=== PATIENT | female | born 1975 | race Caucasian/White ===

== ENCOUNTER 2020-12-21 00:25 | Emergency (ER) | payer MEDICAID, SELFPAY ==
--- NOTE | ~2020-12-21 | CT_ITS ---
EXAMINATION: CT ABDOMEN AND PELVIS WITHOUT CONTRAST CLINICAL INFORMATION: Lower abdominal pain, postop. COMPARISON: None TECHNIQUE: Multidetector volumetric imaging was performed from the superior aspect of the liver through the pubic symphysis. Sagittal and coronal reformatted images were obtained on the technologist's workstation. This CT examination was performed using dose optimization techniques as appropriate, variously including the following: *Automated exposure control *Adjustment of mA and/or kV according to patient size (this includes techniques or standardized protocols for targeted exams where dose is matched to indication/reason for exam; i.e. extremities or head) *Use of iterative reconstruction technique DLP: 561 mGy-cm FINDINGS: LUNG BASES: The visualized lung bases are unremarkable. LIVER, GALLBLADDER, AND BILIARY TREE: The liver is normal in size, shape, and attenuation. No focal hepatic lesion or biliary ductal dilatation is present. The gallbladder is unremarkable with no evidence of radiopaque gallstones, gallbladder wall thickening, or obvious pericholecystic inflammatory changes. PANCREAS: Unremarkable. SPLEEN: Unremarkable. ADRENAL GLANDS: Unremarkable. KIDNEYS AND URETERS: The kidneys are normal in size, shape, and attenuation. No hydronephrosis, hydroureter, or calculi seen. No perinephric stranding. BLADDER: Unremarkable. GASTROINTESTINAL TRACT: There is moderate stool, navicular and gas seen in the colon without distention or diverticulitis. ABDOMINAL WALL: There is a lower abdominal wall scar from previous intervention. No evidence of hernia. LYMPH NODES: Normal. VASCULAR: Unremarkable. PELVIC VISCERA: The uterus is anteverted and unremarkable. OSSEOUS STRUCTURES: Unremarkable. CT/CT abdomen pelvis wo con IMPRESSION: No acute intra-abdominal process seen. Moderate constipation. No obstruction seen.
[2020-12-21 00:58] VITALS: BP 121/93; PULSE 72; RESP 18; TEMP 36.6; O2SAT 99; BMI 27.6
[2020-12-21 04:53] VITALS: BP 169/89; PULSE 61; RESP 15; TEMP 37.1; O2SAT 100
[2020-12-21 05:09] LABS: Glucose Urine UA NEG (NEG); Leukocyte Esterase Urine NEG (NEG); Nitrite Urine NEG (NEG); Specific Gravity - Urine 1.015 (1.005-1.025); UACC Culture Trigger NO; Urine Blood 2+ (NEG); Urine Ketones NEG (NEG); Urine Protein NEG (NEG-TRACE)
[2020-12-21 05:12] LABS: Appearance Urine CLEAR; Color Urine YELLOW
[2020-12-21 05:14] LABS: UPreg QC Valid YES; Urine Pregnancy NEGATIVE (NEGATIVE)
[2020-12-21 05:19] LABS: Bacteria Urine 1+ /LPF; Squamous Epithelial Cell Urine 1+ /LPF
[2020-12-21 05:20] LABS: Amorphous Sediment Urine 2+ /LPF
[2020-12-21 08:03] LABS: Basophils Percent Auto 0.6 % (0-2); Eosinophils Absolute Auto 0.2 X10*3/uL (0.0-0.4); Eosinophils Percent Auto 3.4 % (0-4); Hematocrit 35.6 % (37-47); Hemoglobin 11.9 g/dl (12.0-16.0); Lymphocytes Absolute Auto 1.6 X10*3/uL (1.2-4.9); Lymphocytes Percent Auto 32.9 % (20-40); MANUAL DIFF FLAG NO; Mean Corpuscular HGB Conc 33.4 g/dl (31.0-35.0); Mean Corpuscular Hemoglobin 30.5 pg (27.0-33.0); Mean Corpuscular Volume 91.3 fL (80-98); Mean Platelet Volume 10.8 fL (9.4-12.3); Monocytes Absolute Auto 0.4 X10*3/uL (0.1-1.2); Monocytes Percent Auto 7.4 % (2-11); Neutrophils Absolute Auto 2.6 X10*3/uL (2.0-8.3); Neutrophils Percent Auto 55.7 % (45-73); Platelet Count 204 X10*3/uL (160-400); Red Cell Distribution Width 12.6 % (11.0-16.0); White Blood Count 4.7 X10*3/uL (4.8-10.8)
[2020-12-21 08:26] LABS: Anion Gap 11 (12-20); Blood Urea Nitrogen 8 mg/dL (9-16); Calcium 9.2 mg/dL (8.4-10.2); Carbon Dioxide 25 mmol/L (22-29); Chloride 107 mmol/L (96-108); Creatinine Clr Calc Pharmacy 91.3; Estimated Glomerular Filt Rate > 60; Glucose Random 103 mg/dL (60-115); Potassium 3.9 mmol/L (3.3-5.1); Sodium 139 mmol/L (135-145)
--- NOTE | 2020-12-21 08:39 | ED.ABDPAIN ---
HPI - Abdominal Pain General Chief Complaint: Abdominal Pain Stated Complaint: side pain Time Seen by Provider: 12/21/20 07:33 Source: patient Mode of arrival: ambulatory Limitations: no limitations History of Present Illness HPI narrative: Patient chronic of lower abdominal pain during menstruation since she had fibroid surgery in 08/22 this time pain started for last 2 days getting worse no ultrasound or CT scan was done since surgery no nausea no vomiting no fever or chills no urinary complaints Related Data Previous Rx's Medication Instructions Recorded ibuprofen 600 mg tablet 600 mg PO Q6H PRN #20 tab 12/21/20 tramadol 50 mg tablet 50 mg PO Q6H PRN #20 tab 12/21/20 Allergies Allergy/AdvReac Type Severity Reaction Status Date / Time SEAFOOD Allergy Severe CAN'T Uncoded 01/19/20 17:19 BREATH Review of Systems Review of Systems Yes all other systems are reviewed and are negative Physical Exam Vital Signs: Vital Signs: Last Vital Signs Temp 98.8 F 12/21/20 04:53 Pulse 61 12/21/20 04:53 Resp 15 12/21/20 04:53 BP 169/89 H 12/21/20 04:53 Pulse Ox 100 12/21/20 04:53 Body Mass Index 27.6 Appearance: Alert. Oriented X3. No acute distress. Eyes: PERRLA, No Nystagmus ENT: Pharynx normal. Oral Mucosa moist Neck: Normal inspection. Neck supple. CVS: Normal heart rate and rhythm. Pulses normal. Respiratory: No respiratory distress. Equal air entry bilateral, no wheezing/rales/rhonchi Abdomen: Soft, deep tenderness left lower quadrant and suprapubic area no rebound tenderness or guarding Bowel sounds are present, no mass palpable, no CVA tenderness Skin: Skin warm and dry. Normal skin color. Normal skin turgor. Extremities: No lower extremity edema. No calf tenderness Neuro: Oriented X 3. MDM - Abdominal Pain MDM Narrative Medical decision making narrative: There are nonspecific lower abdominal pain CT scan negative for any acute pathology likely dysmenorrhea of discharge patient home on ibuprofen/ tramadol Lab Data Attestation: I reviewed the patient's lab results. Result diagrams: 12/21/20 07:49 12/21/20 07:49 Labs: Lab Results 12/21/20 12/21/20 12/21/20 Range/Units 05:01 05:01 07:49 WBC 4.7 L (4.8-10.8) X10*3/uL RBC 3.90 L (4.20-5.50) X10*6/uL Hgb 11.9 L (12.0-16.0) g/dl Hct 35.6 L (37-47) % MCV 91.3 (80-98) fL MCH 30.5 (27.0-33.0) pg MCHC 33.4 (31.0-35.0) g/dl RDW 12.6 (11.0-16.0) % Plt Count 204 (160-400) X10*3/uL MPV 10.8 (9.4-12.3) fL Immature Gran % (Auto) 0.0 (0.0-0.4) % Neut % (Auto) 55.7 (45-73) % Lymph % (Auto) 32.9 (20-40) % [place] % (Auto) 7.4 (2-11) % Eos % (Auto) 3.4 (0-4) % Baso % (Auto) 0.6 (0-2) % Lymph # (Auto) 1.6 (1.2-4.9) X10*3/uL [place] # (Auto) 0.4 (0.1-1.2) X10*3/uL Eos # (Auto) 0.2 (0.0-0.4) X10*3/uL Baso # (Auto) 0.0 (0.0-0.2) X10*3/uL Abs Immat Gran (auto) 0.00 (0.00-0.03) X10*3/uL Absolute Neuts (auto) 2.6 (2.0-8.3) X10*3/uL Absolute Nucleated RBC 0.000 (0.0-0.012) X10*3/uL Nucleated RBC % (auto) 0.0 (0.0-0.2) /100WBC Sodium (135-145) mmol/L Potassium (3.3-5.1) mmol/L Chloride (96-108) mmol/L Carbon Dioxide (22-29) mmol/L Anion Gap (12-20) BUN (9-16) mg/dL Creatinine (0.5-1.4) mg/dL Estim Creat Clear Calc Estimated GFR Random Glucose (60-115) mg/dL Calcium (8.4-10.2) mg/dL Urine Color YELLOW Urine Appearance CLEAR Urine pH 7.0 (5.0-8.0) Ur Specific [place] 1.015 (1.005-1.025) Urine Protein NEG (NEG-TRACE) MG/DL Urine Glucose (UA) NEG (NEG) MG/DL Urine Ketones NEG (NEG) MG/DL Urine Blood 2+ H (NEG) Urine Nitrite NEG (NEG) Ur Leukocyte Esterase NEG (NEG) Urine RBC 1-4 (0) /HPF Urine WBC 1-4 (0-4) /HPF Ur Squamous Epith Cells 1+ /LPF Amorphous Sediment 2+ /LPF Urine Bacteria 1+ /LPF Urine Test NEGATIVE (NEGATIVE) 12/21/20 Range/Units 07:49 WBC (4.8-10.8) X10*3/uL RBC (4.20-5.50) X10*6/uL Hgb (12.0-16.0) g/dl Hct (37-47) % MCV (80-98) fL MCH (27.0-33.0) pg MCHC (31.0-35.0) g/dl RDW (11.0-16.0) % Plt Count (160-400) X10*3/uL MPV (9.4-12.3) fL Immature Gran % (Auto) (0.0-0.4) % Neut % (Auto) (45-73) % Lymph % (Auto) (20-40) % [place] % (Auto) (2-11) % Eos % (Auto) (0-4) % Baso % (Auto) (0-2) % Lymph # (Auto) (1.2-4.9) X10*3/uL [place] # (Auto) (0.1-1.2) X10*3/uL Eos # (Auto) (0.0-0.4) X10*3/uL Baso # (Auto) (0.0-0.2) X10*3/uL Abs Immat Gran (auto) (0.00-0.03) X10*3/uL Absolute Neuts (auto) (2.0-8.3) X10*3/uL Absolute Nucleated RBC (0.0-0.012) X10*3/uL Nucleated RBC % (auto) (0.0-0.2) /100WBC Sodium 139 (135-145) mmol/L Potassium 3.9 (3.3-5.1) mmol/L Chloride 107 (96-108) mmol/L Carbon Dioxide 25 (22-29) mmol/L Anion Gap 11 L (12-20) BUN 8 L (9-16) mg/dL Creatinine 0.77 (0.5-1.4) mg/dL Estim Creat Clear Calc 91.3 Estimated GFR > 60 Random Glucose 103 (60-115) mg/dL Calcium 9.2 (8.4-10.2) mg/dL Urine Color Urine Appearance Urine pH (5.0-8.0) Ur Specific [place] (1.005-1.025) Urine Protein (NEG-TRACE) MG/DL Urine Glucose (UA) (NEG) MG/DL Urine Ketones (NEG) MG/DL Urine Blood (NEG) Urine Nitrite (NEG) Ur Leukocyte Esterase (NEG) Urine RBC (0) /HPF Urine WBC (0-4) /HPF Ur Squamous Epith Cells /LPF Amorphous Sediment /LPF Urine Bacteria /LPF Urine Test (NEGATIVE) Discharge Plan Discharge Clinical Impression: Dysmenorrhea Patient Disposition: Home, Self-Care Instructions: Dysmenorrhea (ED) Additional Instructions: Take pain medication as prescribed during menstruation. 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 Prescriptions: New ibuprofen 600 mg tablet 600 mg PO Q6H PRN (Reason: pain) Qty: 20 RF: 0 tramadol 50 mg tablet 50 mg PO Q6H PRN (Reason: pain) Qty: 20 RF: 0 PMFSH Past Medical History Medical History Anemia Asthma Bipolar 1 disorder Depression Hypertension Migraine Pituitary abnormality Vertigo Surgical History deliv NOS-unsp Status post trigger finger release Family History Family History Mother Hypertension Emphysema lung Father Hypertension Epilepsy Social History Social History Alcohol intake: former Advance Directives: No Advance Directives Information Provided: Yes Current occupational status: unemployed Current occupation: Right Handed
[2020-12-21] MEDS: 0.9 % Sodium Chloride 1,000 ML 999 ML IVCONT (09:02)
[2020-12-21] MEDS: Ketorolac Tromethamine 15 MG/ML VIAL IVPUSH (09:03)
== END 2020-12-21 10:30 | disposition home or self-care (01) ==
PROVIDERS: Emergency Provider Internal Medicine
DX: N94.6 Dysmenorrhea, unspecified (principal); R10.30 Lower abdominal pain, unspecified; I10 Essential (primary) hypertension; D50.9 Iron deficiency anemia, unspecified
CPT/HCPCS: 36415; 74176; 80048; 81001; 81025; 85025; 96361; 96374; 99284; J1885

== ENCOUNTER 2021-01-14 14:06 | Outpatient (REF) | payer MEDICAID, SELFPAY ==
[2021-01-15 01:50] LABS: CT PCR NOT DETECTED (Not Detect.); NG PCR NOT DETECTED (Not Detect.)
== END 2021-01-14 14:07 | disposition home or self-care (01) ==
LOC: HO.LAB 14:06
PROVIDERS: Visit Provider Obstetrics & Gynecology
DX: N94.6 Dysmenorrhea, unspecified (principal)
CPT/HCPCS: 87491; 87591; 99212

== ENCOUNTER 2021-01-30 13:37 | Outpatient (REF) | payer MEDICAID, SELFPAY ==
--- NOTE | ~2021-01-30 | US_ITS ---
EXAMINATION: US PELVIS CLINICAL INFORMATION: Dysmenorrhea; the last menstrual period is uncertain. COMPARISON: Pelvic ultrasound dated 06/30/2019. TECHNIQUE: Ultrasound of the pelvis is performed using both transabdominal and transvaginal transducers along with Doppler. Transvaginal imaging is performed due to inadequate visualization transabdominally. FINDINGS: Uterus: The uterus is anteverted and measures 10.4 x 4.7 x 5.6 cm. The uterus is anteverted and anteflexed. Nabothian cysts are seen within the cervix. The double wall endometrial thickness is 0.5 mm. Myometrial echotexture is somewhat heterogeneous. The uterus is smooth in contour and has normal myometrial echogenicity. No visible fibroid. Adnexa: Both ovaries are visualized. There is normal color flow to the adnexa. There is no ovarian torsion. There is no pelvic ascites or fluid collection. There is prominent bilateral adnexal vasculature. Right ovary measures 3.3 x 1.9 x 2.0 cm (volume 6.6 mL). The right ovary contains a 2.2 x 1.3 x 1.6 cm corpus luteum cyst. Left ovary measures 2.7 x 1.5 x 1.5 cm (volume 3.2 mL). US/US pelvic and transvaginal IMPRESSION: 1. No uterine fibroid is presently seen. 2. Nabothian cysts are seen within the cervix. 3. There is a 2.2 cm right ovarian corpus luteum cyst. 4. There is prominent bilateral adnexal vasculature, which can be associated with pelvic congestion.
[2021-01-30 15:35] LABS: Syphilis Screen Nonreactive (Nonreactive)
[2021-01-31 08:12] LABS: HIV AB/AG Nonreactive (Nonreactive); ~HepC Num1 0.14 S/CO (0.00-0.79); ~Hepatitis C Antibody Nonreactive (Nonreactive)
[2021-01-31 08:33] LABS: HBsAGNum1 0.14 S/CO (0.00-0.99); Hepatitis B Surface Antigen Negative (Negative)
== END 2021-01-30 13:38 | disposition home or self-care (01) ==
LOC: HO.US 13:37
PROVIDERS: Visit Provider Obstetrics & Gynecology
DX: N94.6 Dysmenorrhea, unspecified (principal); N76.0 Acute vaginitis; B96.89 Other specified bacterial agents as the cause of diseases classified elsewhere
CPT/HCPCS: 36415; 76830; 76856; 86780; 86803; 87340; 87389

== ENCOUNTER → 2021-02-18 11:04 | Outpatient (BNVA) | payer MEDICAID, SELFPAY | PROVIDERS: Visit Provider Obstetrics & Gynecology ==

== ENCOUNTER 2021-03-11 13:35 | Outpatient (REF) | payer MEDICAID, SELFPAY ==
[2021-03-14 01:47] LABS: HPV mRNA E6/E7 rflx Not Detected (Not Detected)
== END 2021-03-11 13:36 | disposition home or self-care (01) ==
LOC: HO.LAB 13:35
PROVIDERS: Visit Provider Obstetrics & Gynecology
DX: N93.9 Abnormal uterine and vaginal bleeding, unspecified (principal); Z11.51 Encounter for screening for human papillomavirus (HPV)
CPT/HCPCS: 58100; 87624; 88142; 88305; 99212

== ENCOUNTER 2021-04-08 15:27 | Outpatient (REF) | payer MEDICAID, SELFPAY ==
--- NOTE | ~2021-04-08 | MM_ITS ---
EXAMINATION: MM SCREENING DIGITAL BREAST TOMOSYNTHESIS, BILATERAL CLINICAL INFORMATION: Screening. Asymptomatic. The lifetime risk of breast cancer based on the Tyrer-Cuzick Model is 17%. COMPARISON: Mammography: 12/22/2017, 11/26/2017 (baseline) TECHNIQUE: Digital breast tomosynthesis is performed in both the craniocaudal and mediolateral oblique views along with computer-aided detection (CAD). Synthesized 2D images are generated from the tomosynthesis. FINDINGS: The breasts are heterogeneously dense, which may obscure small masses (ACR BI-RADS breast composition Category c). There are no significant masses, abnormal calcifications, or other abnormalities. The axilla and skin contours are unremarkable. No significant changes. MM/MM tomosynthesis screening BI IMPRESSION: No mammographic evidence of malignancy. ASSESSMENT: BI-RADS 1: Negative RECOMMENDATION: Routine annual mammography screening. This patient's information was entered into a reminder system with a target due date for their next mammogram.
== END 2021-04-08 15:28 | disposition home or self-care (01) ==
LOC: HO.MAMMO 15:27
PROVIDERS: Visit Provider Obstetrics & Gynecology
DX: Z12.31 Encounter for screening mammogram for malignant neoplasm of breast (principal)
CPT/HCPCS: 77063; 77067

== ENCOUNTER 2021-04-09 13:35 | Outpatient (REF) | payer MEDICAID, SELFPAY ==
[2021-04-09 14:54] LABS: Hematocrit 35.7 % (37.0-47.0); Hemoglobin 11.9 g/dl (12.0-16.0); Mean Corpuscular HGB Conc 33.3 g/dl (31.0-35.0); Mean Corpuscular Hemoglobin 30.4 pg (27.0-33.0); Mean Corpuscular Volume 91.1 fL (80.0-98.0); Mean Platelet Volume 10.4 fL (9.4-12.3); Platelet Count 245 X10*3/uL (160-400); Red Blood Count 3.92 X10*6/uL (4.20-5.50); Red Cell Distribution Width 12.4 % (11.0-16.0); White Blood Count 5.1 X10*3/uL (4.8-10.8)
[2021-04-09 15:37] LABS: HCG Quantitative < 2 mIU/mL
== END 2021-04-09 13:36 | disposition home or self-care (01) ==
LOC: HO.LAB 13:35
PROVIDERS: Visit Provider Obstetrics & Gynecology
DX: N93.9 Abnormal uterine and vaginal bleeding, unspecified (principal)
CPT/HCPCS: 36415; 84443; 84702; 85027; 99212

== ENCOUNTER → 2021-07-15 11:35 | Outpatient (BNVA) | payer MEDICAID, SELFPAY | PROVIDERS: Visit Provider Obstetrics & Gynecology | DX: N92.6 Irregular menstruation, unspecified (principal) | CPT/HCPCS: 99212 ==

== ENCOUNTER 2021-11-20 14:05 | Emergency (ER) | payer MEDICAID, SELFPAY ==
--- NOTE | ~2021-11-20 | US_ITS ---
EXAM: Pelvic Ultrasound CLINICAL INDICATION: Lower abdominal pain. Bleeding. COMPARISON: Pelvic ultrasound 01/30/2021 TECHNIQUE: The pelvis was evaluated using transabdominal and transvaginal imaging. FINDINGS: The uterus measures 11.0 x 5.3 x 7.3 cm in longitudinal by AP by transverse dimension. Uterus demonstrates overall heterogeneous echotexture with a cyst. 9 mm fibroid. The endometrium measures 6 mm in thickness. Small nabothian cysts identified within the cervix. The left ovary measures approximately 2.7 x 2.0 x 1.9 cm and is normal. The right ovary measures approximately 2.9 x 2.4 x 1.6 cm and is also normal. Prominent veins noted particularly within the left adnexal region are nonspecific but possibly business center representative of a retroperitoneal venous malformation. There is a small amount of free fluid in the pelvis. US/US pelvic and transvaginal IMPRESSION: -No acute ultrasound abnormality identified within the pelvis. -Stable findings as detailed above.
[2021-11-20 15:50] VITALS: BP 135/68; PULSE 60; RESP 18; TEMP 36.4; O2SAT 99; BMI 27.4
[2021-11-20 17:45] LABS: MANUAL DIFF FLAG NO
[2021-11-20 17:47] LABS: Basophils Percent Auto 0.4 % (0-2); Eosinophils Absolute Auto 0.1 X10*3/uL (0.0-0.4); Eosinophils Percent Auto 1.3 % (0-4); Hematocrit 35.8 % (37.0-47.0); Hemoglobin 11.9 g/dl (12.0-16.0); Imm Gran Abs Auto 0.02 X10*3/uL (0.00-0.03); Imm Gran Pct Auto 0.3 % (0.0-0.4); Lymphocytes Absolute Auto 1.2 X10*3/uL (1.2-4.9); Lymphocytes Percent Auto 15.2 % (20-40); Mean Corpuscular HGB Conc 33.2 g/dl (31.0-35.0); Mean Corpuscular Hemoglobin 29.8 pg (27.0-33.0); Mean Corpuscular Volume 89.5 fL (80.0-98.0); Mean Platelet Volume 10.4 fL (9.4-12.3); Monocytes Absolute Auto 0.4 X10*3/uL (0.1-1.2); Monocytes Percent Auto 5.1 % (2-11); Neutrophils Percent Auto 77.7 % (45-73); Platelet Count 247 X10*3/uL (160-400); White Blood Count 7.7 X10*3/uL (4.8-10.8)
[2021-11-20 17:51] LABS: Appearance Urine CLEAR; Color Urine YELLOW; Glucose Urine UA NEG (NEG); Leukocyte Esterase Urine NEG (NEG); Nitrite Urine NEG (NEG); UACC Culture Trigger NO; Urine Blood 3+ (NEG); Urine Ketones NEG (NEG); Urine Protein TRACE MG/DL (NEG-TRACE)
[2021-11-20 17:52] LABS: UPreg QC Valid YES; Urine Pregnancy NEGATIVE (NEGATIVE)
[2021-11-20 18:00] LABS: Alanine Aminotransferase 18 U/L (0-31); Albumin Level 4.5 g/dL (3.5-5.0); Alkaline Phosphatase 45 U/L (39-117); Anion Gap 10 (12-20); Aspartate Amino Transferase 14 U/L (5-31); Bilirubin Direct 0.2 mg/dL (0.0-0.5); Bilirubin Total 0.6 mg/dL (0.0-1.0); Blood Urea Nitrogen 7 mg/dL (9-16); Carbon Dioxide 25 mmol/L (22-29); Chloride 107 mmol/L (96-108); Creatinine Clr Calc Pharmacy 92.5; Estimated Glomerular Filt Rate > 60; Glucose Random 99 mg/dL (60-115); Potassium 3.4 mmol/L (3.3-5.1); Sodium 139 mmol/L (135-145); Total Protein 7.6 g/dL (6.5-8.0)
[2021-11-20 18:12] LABS: Mucus Urine 3+ /LPF; RBC Urine 30-49 /HPF (0); Squamous Epithelial Cell Urine 1+ /LPF; WBC Urine 0 /HPF (0-4)
--- NOTE | 2021-11-20 20:03 | ED_ITS ---
HPI - Abdominal Pain General Chief Complaint: Abdominal Pain Stated Complaint: Ovarian cyst Time Seen by Provider: 11/20/21 19:40 Source: patient Mode of arrival: ambulatory Limitations: language barrier History of Present Illness HPI narrative: 46-year-old female presents with lower abdominal pain, and vaginal bleeding. States that she has had a history of ovarian cyst with rupture and fibroids. She describes the pain as sharp, cramping, feels like a contraction and that something is stuck inside of her body. She does have some light bleeding, and has been taking Tylenol with poor effect. she does not report fevers, chills, chest pain or pressure, palpitations, abdominal distention, dizziness, weakness, edema, abnormal vaginal discharge, or trauma. MD elicited complaint: abdominal pain Pertinent past history: other (Ovarian cyst with rupture) Onset (ago): day(s) (1) Pain Consistency: constant Location: suprapubic Severity: severe Pain scale (0-10): 10 Quality: cramping and aching Radiation: none Migration to: no migration Exacerbating factors: movement Relieving factors: nothing Context: history of similar episodes Associated symptoms: denies other symptoms Treatments prior to arrival: NSAIDs Related Data Previous Rx's Medication Instructions Recorded ibuprofen 600 mg tablet 600 mg PO Q6H PRN pain #20 tabs 12/21/20 ketorolac 10 mg tablet 10 mg PO Q6H PRN pain 5 days #20 11/20/21 tabs Allergies Allergy/AdvReac Type Severity Reaction Status Date / Time SEAFOOD Allergy Severe CAN'T Uncoded 03/19/21 13:16 BREATH Review of Systems Review of Systems Constitutional: No Fever, No Chills ENT/Mouth: No sore throat, No Rhinorrhea Eyes: No Eye Pain, No Redness Cardiovascular: No Chest Pain, No SOB Respiratory: No Cough, No Sputum, No Wheezing Gastrointestinal: positive Nausea, No Vomiting, No Diarrhea, positive abdominal pain Genitourinary: positive vaginal bleeding, No Dysuria, No Urinary Frequency, positive pelvic pain Musculoskeletal: No Myalgias Skin: No rash Neuro: No Weakness, No Headache Psych: No Anxiety/Panic, No Depression Heme/Lymph: No bruising, No Lymphadenopathy Endocrine: No Polyuria, No Polydipsia Yes all other systems are reviewed and are negative PMFSH Past Medical History Attestation statement: The following information was validated with the patient. Source: old records reviewed Medical History Anemia Asthma Bipolar 1 disorder Depression Hypertension Migraine Pituitary abnormality Vertigo Surgical History deliv NOS-unsp H/O myomectomy Status post trigger finger release Family History Family History Mother Hypertension Emphysema lung Father Hypertension Epilepsy Social History Social History Alcohol intake: former Patient Tobacco Use Status: Never used Tobacco Advance Directives: No Advance Directives Information Provided: No Current occupational status: unemployed Current occupation: Right Handed Physical Exam ED Vital Signs: Vital Signs - 24 hr 11/20/21 15:50 11/20/21 20:37 11/20/21 21:04 Temperature 97.6 F 98.1 F Pulse Rate 60 48 L Respiratory Rate 18 18 16 Blood Pressure 135/68 134/79 Pulse Oximetry 99 99 Oxygen Delivery Method Room Air Room Air 11/20/21 22:28 Temperature Pulse Rate Respiratory Rate 16 Blood Pressure Pulse Oximetry Oxygen Delivery Method BMI result Body Mass Index 27.4 Appearance: Alert. Oriented X3. No acute distress. Eyes: Pupils equal, round and reactive to light. ENT: Pharynx normal. Neck: Normal inspection. Neck supple. CVS: Normal heart rate and rhythm. Pulses normal. Respiratory: No respiratory distress. Breath sounds normal. Abdomen: Soft and suprapubic tenderness. Skin: Skin warm and dry. Normal skin color. Normal skin turgor. Extremities: No lower extremity edema. Moves all extremities against resistance. Gait well-balanced well coordinated. Neuro: No motor deficit. No sensory deficit. Cranial nerves 2-12 intact. Course Course Course Narrative: 46-year-old female presents for abdominal pain cramping and light vaginal bleeding. Has a history of ovarian cyst with rupture. Labs drawn while patient was in the emergency department waiting room, H&H 11.9/35.8. Consistent with prior values. Patient is hemodynamically stable. Urinalysis positive for heme. Consistent with menstrual cycle verses abnormal vaginal bleeding. Will order pelvic ultrasound. Patient does have a history of pelvic congestion syndrome, ovarian cyst corpus luteum. Will treat with morphine and Toradol for pain. 22:27 ultrasound is negative for acute findings, shows ovarian cyst, prominent vessels possibly residential sales representative of a retroperitoneal venous malformation. Patient does have a history of pelvic congestion syndrome. Uterus demonstrates a 9 mm fibroid. All of these findings are stable and have been present during prior studies. Patient is an established patient of Dr. Pham, plan of care is to discharge with Toradol p.o. and follow up with Dr. Pham. Patient verbalized understanding of and agrees plan of care discharge home. Verbalized understanding of signs and symptoms indicating need for emergent intervention. ceramic plater utilized for all correspondence. Google translate utilized for discharge instructions. MDM - Abdominal Pain Differential Diagnosis Differential diagnosis: Likely abdominal pain Differential diagnosis narrative:: Ovarian torsion, cyst rupture, uterine fibroid Medical Records Attestation: I reviewed the patient's medical records. Lab Data Attestation: I reviewed the patient's lab results. Result diagrams: 11/20/21 17:37 11/20/21 17:37 Labs: Lab Results 11/20/21 11/20/21 11/20/21 Range/Units 17:37 17:37 17:37 WBC 7.7 (4.8-10.8) X10*3/uL RBC 4.00 L (4.20-5.50) X10*6/uL Hgb 11.9 L (12.0-16.0) g/dl Hct 35.8 L (37.0-47.0) % MCV 89.5 (80.0-98.0) fL MCH 29.8 (27.0-33.0) pg MCHC 33.2 (31.0-35.0) g/dl RDW 13.0 (11.0-16.0) % Plt Count 247 (160-400) X10*3/uL MPV 10.4 (9.4-12.3) fL Immature Gran % (Auto) 0.3 (0.0-0.4) % Neut % (Auto) 77.7 H (45-73) % Lymph % (Auto) 15.2 L (20-40) % [place] % (Auto) 5.1 (2-11) % Eos % (Auto) 1.3 (0-4) % Baso % (Auto) 0.4 (0-2) % Lymph # (Auto) 1.2 (1.2-4.9) X10*3/uL [place] # (Auto) 0.4 (0.1-1.2) X10*3/uL Eos # (Auto) 0.1 (0.0-0.4) X10*3/uL Baso # (Auto) 0.0 (0.0-0.2) X10*3/uL Abs Immat Gran (auto) 0.02 (0.00-0.03) X10*3/uL Absolute Neuts (auto) 6.0 (2.0-8.3) x10*3/uL Absolute Nucleated RBC 0.000 (0.0-0.012) X10*3/uL Nucleated RBC % (auto) 0.0 (0.0-0.2) /100WBC Sodium 139 (135-145) mmol/L Potassium 3.4 (3.3-5.1) mmol/L Chloride 107 (96-108) mmol/L Carbon Dioxide 25 (22-29) mmol/L Anion Gap 10 L (12-20) BUN 7 L (9-16) mg/dL Creatinine 0.75 (0.5-1.4) mg/dL Estim Creat Clear Calc 92.5 Estimated GFR > 60 Random Glucose 99 (60-115) mg/dL Calcium 9.0 (8.4-10.2) mg/dL Total Bilirubin 0.6 (0.0-1.0) mg/dL Direct Bilirubin 0.2 (0.0-0.5) mg/dL AST 14 (5-31) U/L ALT 18 (0-31) U/L Alkaline Phosphatase 45 (39-117) U/L Total Protein 7.6 (6.5-8.0) g/dL Albumin 4.5 (3.5-5.0) g/dL Urine Color YELLOW Urine Appearance CLEAR Urine pH 6.0 (5.0-8.0) Ur Specific [place] 1.020 (1.005-1.025) Urine Protein TRACE (NEG-TRACE) MG/DL Urine Glucose (UA) NEG (NEG) MG/DL Urine Ketones NEG (NEG) MG/DL Urine Blood 3+ H (NEG) Urine Nitrite NEG (NEG) Ur Leukocyte Esterase NEG (NEG) Urine RBC 30-49 H (0) /HPF Urine WBC 0 (0-4) /HPF Ur Squamous Epith Cells 1+ /LPF Urine Bacteria NONE /LPF Urine Mucus 3+ /LPF Urine Test (NEGATIVE) 11/20/21 Range/Units 17:37 WBC (4.8-10.8) X10*3/uL RBC (4.20-5.50) X10*6/uL Hgb (12.0-16.0) g/dl Hct (37.0-47.0) % MCV (80.0-98.0) fL MCH (27.0-33.0) pg MCHC (31.0-35.0) g/dl RDW (11.0-16.0) % Plt Count (160-400) X10*3/uL MPV (9.4-12.3) fL Immature Gran % (Auto) (0.0-0.4) % Neut % (Auto) (45-73) % Lymph % (Auto) (20-40) % [place] % (Auto) (2-11) % Eos % (Auto) (0-4) % Baso % (Auto) (0-2) % Lymph # (Auto) (1.2-4.9) X10*3/uL [place] # (Auto) (0.1-1.2) X10*3/uL Eos # (Auto) (0.0-0.4) X10*3/uL Baso # (Auto) (0.0-0.2) X10*3/uL Abs Immat Gran (auto) (0.00-0.03) X10*3/uL Absolute Neuts (auto) (2.0-8.3) x10*3/uL Absolute Nucleated RBC (0.0-0.012) X10*3/uL Nucleated RBC % (auto) (0.0-0.2) /100WBC Sodium (135-145) mmol/L Potassium (3.3-5.1) mmol/L Chloride (96-108) mmol/L Carbon Dioxide (22-29) mmol/L Anion Gap (12-20) BUN (9-16) mg/dL Creatinine (0.5-1.4) mg/dL Estim Creat Clear Calc Estimated GFR Random Glucose (60-115) mg/dL Calcium (8.4-10.2) mg/dL Total Bilirubin (0.0-1.0) mg/dL Direct Bilirubin (0.0-0.5) mg/dL AST (5-31) U/L ALT (0-31) U/L Alkaline Phosphatase (39-117) U/L Total Protein (6.5-8.0) g/dL Albumin (3.5-5.0) g/dL Urine Color Urine Appearance Urine pH (5.0-8.0) Ur Specific [place] (1.005-1.025) Urine Protein (NEG-TRACE) MG/DL Urine Glucose (UA) (NEG) MG/DL Urine Ketones (NEG) MG/DL Urine Blood (NEG) Urine Nitrite (NEG) Ur Leukocyte Esterase (NEG) Urine RBC (0) /HPF Urine WBC (0-4) /HPF Ur Squamous Epith Cells /LPF Urine Bacteria /LPF Urine Mucus /LPF Urine Test NEGATIVE (NEGATIVE) Imaging Data Pelvic ultrasound: Attestation: I personally reviewed and interpreted this imaging study as follows: Radiologist's impression: TECHNIQUE:? The pelvis was evaluated using transabdominal and transvaginal imaging. FINDINGS: The uterus measures 11.0 x 5.3 x 7.3 cm in longitudinal by AP by transverse dimension. Uterus demonstrates overall heterogeneous echotexture with a cyst. 9 mm fibroid. The endometrium measures 6 mm in thickness. Small nabothian cysts identified within the cervix. The left ovary measures approximately 2.7 x 2.0 x 1.9 cm and is normal. The right ovary measures approximately 2.9 x 2.4 x 1.6 cm and is also normal. Prominent veins noted particularly within the left adnexal region are nonspecific but possibly residential sales representative of a retroperitoneal venous malformation. There is a small amount of free fluid in the pelvis. US/US pelvic and transvaginal IMPRESSION: -No acute ultrasound abnormality identified within the pelvis. -Stable findings as detailed above. ? Discharge Plan Discharge Clinical Impression: Ovarian cyst, Fibroid, uterine, Pelvic congestion syndrome Patient Disposition: Home, Self-Care Instructions: Ovarian Cyst (ED) Additional Instructions: Se le evalu? por calambres p?lvicos y dolor. La ecograf?a p?lvica es negativa para nuevos hallazgos. Tiene un ?tero fibroide y quistes ov?ricos que no chong cambiado. Guillermo un seguimiento con el Dr. Pham para el s?ndrome de congesti?n p?lvica. Te recet? Toradol. [place] samira medicamento cada 8 horas. No tome Aleve o Motrin con samira medicamento. Regrese al departamento de emergencias por cualquier s?ntoma nuevo, preocupante o que empeore. You were evaluated for pelvic cramping and pain. Pelvic ultrasound is negative for new findings. You do have a fibroid uterus and ovarian cysts that have not changed. Please follow-up with Dr. Pham for pelvic congestion syndrome. I prescribed you Toradol. Take this medication every 8 hours. Do not take Aleve, or Motrin with this medication. Return to the emergency department for any new, concerning, or worsening symptoms. Prescriptions: New ketorolac 10 mg tablet 10 mg PO Q6H PRN (Reason: pain) 5 Days Qty: 20 0RF Rx Instructions: First dose given in the emergency department, 60 mg IM No Action ibuprofen 600 mg tablet 600 mg PO Q6H PRN (Reason: pain) Qty: 20 0RF Referrals: Rick Pham MD [Physician] - (Pelvic pain, pelvic congestion syndrome) Interventions: ED Discharge Assessment Last Done: 11/20/21 22:47 Discharge Date/Time: 11/20/21 22:49
[2021-11-20] MEDS: Ketorolac Tromethamine 30 MG/ML VIAL IVPUSH (20:33)
[2021-11-20 20:37] VITALS: RESP 18
[2021-11-20] MEDS: Morphine Sulfate 2 MG/ML CARTRIDGE IVPUSH (20:37)
[2021-11-20 21:04] VITALS: BP 134/79; PULSE 48; RESP 16; TEMP 36.7; O2SAT 99
[2021-11-20 22:28] VITALS: RESP 16
[2021-11-20] MEDS: Morphine Sulfate 4 MG/ML CARTRIDGE IVPUSH (22:28)
== END 2021-11-20 22:49 | disposition home or self-care (01) ==
PROVIDERS: Emergency Provider Emergency Medicine
DX: N83.202 Unspecified ovarian cyst, left side (principal); D25.9 Leiomyoma of uterus, unspecified; R10.2 Pelvic and perineal pain; Z79.899 Other long term (current) drug therapy
CPT/HCPCS: 36415; 76830; 76856; 80053; 81001; 81025; 82248; 85025; 96374; 96375; 96376; 99284; J1885; J2270

== ENCOUNTER 2021-12-18 12:36 | Outpatient (REF) | payer MEDICAID, SELFPAY ==
[2021-12-18 18:24] LABS: CT PCR NOT DETECTED (Not Detect.); NG PCR NOT DETECTED (Not Detect.)
== END 2021-12-18 12:37 | disposition home or self-care (01) ==
LOC: HO.LAB 12:36
PROVIDERS: Visit Provider Obstetrics & Gynecology
DX: N93.9 Abnormal uterine and vaginal bleeding, unspecified (principal); N94.6 Dysmenorrhea, unspecified; D21.9 Benign neoplasm of connective and other soft tissue, unspecified
CPT/HCPCS: 87491; 87591; 99212

== ENCOUNTER 2022-01-14 13:29 | Outpatient (REF) | payer MEDICAID, SELFPAY | END 2022-01-14 13:30 | disposition home or self-care (01) | LOC: HO.LNP 13:29 | PROVIDERS: Visit Provider Obstetrics & Gynecology | DX: N94.6 Dysmenorrhea, unspecified (principal); R31.29 Other microscopic hematuria | CPT/HCPCS: 87086; 99212 ==

== ENCOUNTER → 2022-01-28 11:53 | Outpatient (BNVA) | payer MEDICAID, SELFPAY | PROVIDERS: PCP Nurse Practitioner Family; Visit Provider Obstetrics & Gynecology | DX: R31.29 Other microscopic hematuria (principal) | CPT/HCPCS: 99212 ==

== ENCOUNTER 2022-04-29 15:13 | Outpatient (REF) | payer MEDICAID, SELFPAY ==
[2022-04-29 18:22] LABS: HCG Quantitative < 2 mIU/mL; Thyroid Stimulating Hormone 1.08 uIU/mL (0.32-4.0)
[2022-05-01 08:58] LABS: Follicle Stimulating Hormone 12.4 mIU/mL; Prolactin 6.4 ng/mL
== END 2022-04-29 15:14 | disposition home or self-care (01) ==
LOC: HO.LAB 15:13
PROVIDERS: PCP Nurse Practitioner Family; Visit Provider Advanced Practice Midwife
DX: O20.0 Threatened abortion (principal)
CPT/HCPCS: 36415; 83001; 84146; 84443; 84702; 99212

== ENCOUNTER 2022-05-29 14:53 | Outpatient (REF) | payer MEDICAID, SELFPAY ==
--- NOTE | ~2022-05-29 | US_ITS ---
EXAMINATION: US PELVIS CLINICAL INFORMATION: Amenorrhea; the last menstrual period was on 05/02/2022. COMPARISON: Pelvic ultrasound dated 11/20/2021. TECHNIQUE: Ultrasound of the pelvis is performed using both transabdominal and transvaginal transducers along with Doppler. Transvaginal imaging is performed due to inadequate visualization transabdominally. FINDINGS: Uterus: The uterus is anteverted and anteflexed. The uterus measures 9.1 x 3.9 x 6.0 cm. The double wall endometrial thickness is 1.3 mm. The endometrial stripe is somewhat ill-defined. Within the lower endometrial canal, there is a small nonspecific fluid collection. The uterus is smooth in contour and has normal myometrial echogenicity. No visible fibroid. Adnexa: Both ovaries are visualized. There is normal color flow to the adnexa. There is no ovarian torsion. There is a small amount of nonspecific free fluid within the cul-de-sac. Right ovary measures 2.2 x 1.3 x 1.7 cm, volume 2.7 mL. Left ovary measures 2.7 x 2.2 x 2.3 cm, volume 7.2 mL. US/US pelvic and transvaginal IMPRESSION: 1. There is a small amount of nonspecific free fluid within the cul-de-sac. 2. The endometrial stripe is a slightly ill-defined but normal in thickness. Within the lower endometrial canal, there is a small nonspecific, anechoic fluid collection. 3. The ovaries are unremarkable appearance.
== END 2022-05-29 14:54 | disposition home or self-care (01) ==
LOC: HO.US 14:53
PROVIDERS: PCP Nurse Practitioner Family; Visit Provider Emergency Medicine
DX: N91.1 Secondary amenorrhea (principal)
CPT/HCPCS: 76830; 76856

== ENCOUNTER 2022-06-30 14:03 | Outpatient (REF) | payer MEDICAID, SELFPAY ==
--- NOTE | ~2022-06-30 | XR_ITS ---
EXAMINATION: XR HAND, RIGHT CLINICAL INFORMATION: Right hand pain COMPARISON: Right hand radiograph from 06/18/2018 TECHNIQUE: PA, lateral, and oblique views of the right hand. FINDINGS: No acute visible fracture or dislocation. Joint spaces and alignment are maintained. Soft tissues are unremarkable. XR/XR hand RT min 3V IMPRESSION: No acute visible fracture or dislocation.
== END 2022-06-30 14:04 | disposition home or self-care (01) ==
LOC: HO.XRAY 14:03
PROVIDERS: PCP Registered Nurse; Visit Provider Registered Nurse
DX: M79.641 Pain in right hand (principal)
CPT/HCPCS: 73130

== ENCOUNTER 2022-09-09 10:22 | Outpatient (REF) | payer MEDICAID, SELFPAY ==
[2022-09-10 23:33] LABS: HPV mRNA E6/E7 rflx Not Detected (Not Detected)
== END 2022-09-09 10:23 | disposition home or self-care (01) ==
LOC: HO.LNP 10:22
PROVIDERS: PCP Registered Nurse; Visit Provider Obstetrics & Gynecology
DX: N93.9 Abnormal uterine and vaginal bleeding, unspecified (principal); N76.0 Acute vaginitis; B96.89 Other specified bacterial agents as the cause of diseases classified elsewhere
CPT/HCPCS: 0353U; 83001; 83002; 84146; 84443; 84702; 85027; 86706; 86780; 86803; 87389; 87480; 87510; 87624; 87660; 88142; 99212

== ENCOUNTER 2022-09-09 11:03 | Outpatient (REF) | payer MEDICAID, SELFPAY ==
[2022-09-09 12:09] LABS: Hematocrit 37.6 % (37.0-47.0); Hemoglobin 12.4 g/dl (12.0-16.0); Mean Corpuscular Hemoglobin 30.1 pg (27.0-33.0); Mean Corpuscular Volume 91.3 fL (80.0-98.0); Mean Platelet Volume 10.9 fL (9.4-12.3); Platelet Count 286 X10*3/uL (160-400); Red Blood Count 4.12 X10*6/uL (4.20-5.50); Red Cell Distribution Width 12.7 % (11.0-16.0); White Blood Count 5.7 X10*3/uL (4.8-10.8)
[2022-09-09 13:08] LABS: HCG Quantitative < 2 mIU/mL; TSH reflex Free T4 2.02 uIU/mL (0.32-4.0)
[2022-09-09 14:51] LABS: CT PCR NOT DETECTED (Not Detect.); NG PCR NOT DETECTED (Not Detect.)
[2022-09-10 04:19] LABS: Syphilis Screen Nonreactive (Nonreactive)
[2022-09-10 04:43] LABS: HIV AB/AG Nonreactive (Nonreactive); HIV Num 1 0.05 S/CO (0.00-0.99); ~HepC Num1 0.12 S/CO (0.00-0.79); ~Hepatitis B Surface Antibody REACTIVE (Nonreactive); ~Hepatitis C Antibody Nonreactive (Nonreactive)
[2022-09-10 12:36] LABS: BV Int Neg Control Negative (Negative); BV Int Pos Control Positive (Positive)
[2022-09-11 08:29] LABS: Follicle Stimulating Hormone 14.7 mIU/mL; Lutenizing Hormone 6.2 mIU/mL; Prolactin 8.2 ng/mL
== END 2022-09-09 11:04 | disposition home or self-care (01) ==
LOC: HO.LAB 11:03
PROVIDERS: PCP Registered Nurse; Visit Provider Obstetrics & Gynecology
DX: N93.9 Abnormal uterine and vaginal bleeding, unspecified (principal); N76.0 Acute vaginitis; B96.89 Other specified bacterial agents as the cause of diseases classified elsewhere
CPT/HCPCS: 0353U; 83001; 83002; 84146; 84443; 84702; 85027; 86706; 86780; 86803; 87389; 87480; 87510; 87660

== ENCOUNTER 2022-10-13 14:15 | Outpatient (REF) | payer MEDICAID, SELFPAY | END 2022-10-13 14:16 | disposition home or self-care (01) | LOC: HO.LNP 14:15 | PROVIDERS: PCP Registered Nurse; Visit Provider Obstetrics & Gynecology | DX: N93.9 Abnormal uterine and vaginal bleeding, unspecified (principal) | CPT/HCPCS: 58100; 81025; 88305 ==

== ENCOUNTER → 2022-10-22 13:28 | Outpatient (BNVA) | payer MEDICAID, SELFPAY | PROVIDERS: PCP Registered Nurse; Visit Provider Obstetrics & Gynecology | DX: N93.9 Abnormal uterine and vaginal bleeding, unspecified (principal) | CPT/HCPCS: 99212 ==

== ENCOUNTER 2022-11-14 07:20 | Day surgery (SDC) | payer MEDICAID, SELFPAY ==
[2022-11-12 10:06] VITALS: BMI 29.2
[2022-11-14] VITALS (8 sets, daily range): BP systolic 109–167; BP diastolic 60–90; PULSE 45–67; RESP 16–18; TEMP 36.1–36.8; O2SAT 98–100; BMI 28.3
[2022-11-14 07:59] LABS: UPreg QC Valid YES; Urine Pregnancy NEGATIVE (NEGATIVE)
[2022-11-14] MEDS: Lactated Ringers 1,000 ML 100 ML IVCONT (08:13)
--- NOTE | 2022-11-14 08:15 | P.CONAN_ITS ---
[facility] Active Problems Active Problems: All Active Problems (Updated 10/22/22 @ 13:54 by Rick Pham MD) Vulvovaginitis (Acute) Microscopic hematuria (Acute) Myoma (Acute) Abnormal uterine bleeding (AUB) (Acute) Bacterial vaginosis (Acute) Dysmenorrhea (Acute) Iron deficiency anemia (Acute) Past Medical History Medical History Anemia Asthma Bipolar 1 disorder Depression Hypertension Migraine Pituitary abnormality Vertigo Family History Family History Mother Hypertension Emphysema lung Father Hypertension Epilepsy Family history of problems with anesthesia: No Surgical History Surgical History deliv NOS-unsp H/O myomectomy Status post trigger finger release History of Problems with Anesthesia: No Social History Social History Alcohol intake: former Patient Tobacco Use Status: Current someday Tobacco user Cigarettes Per Day: 7 Date Education Initiated: 11/14/22 Use of substances other than those prescribed or required for medical reasons: No Are you DNR?: No Advance Directives: No Advance Directives Information Provided: Yes Current occupational status: unemployed Current occupation: Right 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 Meds Allergies Allergy/AdvReac Type Severity Reaction Status Date / Time SEAFOOD Allergy Severe Anaphylaxis Uncoded 10/22/22 13:34 Active Medications: Current Medications Albuterol Sulfate (Albuterol Sulfate (0.083%) 2.5 Mg/3 Ml Vial.Neb) 2.5 mg INHALE ONCE PRN PRN Reason: Shortness of Breath/Wheezing Lactated Ringer's (Lr) 1,000 mls @ 100 mls/hr IVCONT .Q10H OSBALDO Last Admin: 11/14/22 08:13 Dose: 100 mls/hr Home Medications Medication Instructions Recorded Confirmed Last Taken Type albuterol sulfate 2.5 mg/3 mL 2.5 mg inhalation Q4H PRN Wheezing 09/09/22 11/12/22 Unknown History (0.083 %) solution for nebulization albuterol sulfate 90 mcg/actuation 2 puff inhalation Q6H PRN wheezing 09/09/22 11/12/22 Unknown History aerosol inhaler (Ventolin HFA) cetirizine 10 mg tablet 10 mg PO QAM 09/09/22 11/12/22 Unknown History lisinopril 10 mg tablet 10 mg PO QAM 09/09/22 11/12/22 11/14/22 History sumatriptan succinate 25 mg tablet 25 mg PO ONCE PRN Migraine Headache 09/09/22 11/12/22 Unknown History Exam Exam Date and Time: November 14, 2022 0815 Height,Weight and Vital Signs: Height 5 ft 4 in Weight 74.843 kg Last Vital Signs Temp 98.2 F 11/14/22 08:00 Pulse 56 11/14/22 08:00 Resp 18 11/14/22 08:00 BP 137/70 11/14/22 08:00 Pulse Ox 98 11/14/22 08:00 O2 Del Method Room Air 11/14/22 08:00 Pertinent Lab Results Pertinent Lab Results: Laboratory Tests 11/14/22 07:25 Urine Test NEGATIVE Airway Mallampati Class: III TM Dist: >3cm Neck ROM: Full Assessment and Plan Assessment Anesthesia Assessment: Anesthesia Plan Discussed and Chart Reviewed Final Anesthetic Review Family History of Problems with Anesthesia: No History of Problems with Anesthesia: No NPO: Yes ASA Class: II Final Preanesthetic Review: No Changes in Pt Med Stat, Meds/Allgs Chart Reviewed, Consent Obtained/Reviewed and Anes Risks/Benef Reviewed Patient Risk: Low Procedure Risk: Low Anesthetic Plan Anesthetic Plan: GA Disposition: Standard PACU
--- NOTE | 2022-11-14 09:07 | MHC.SHP ---
Pre-Procedural Eval Section A Date of Service: 11/14/22 The patient is an INPATIENT: No Changes since office visit: No Cold of Flu in the past 2 weeks, No New Medical Problems, No Changes in Medication and No Patient answered all questions The History & Physical has been completed within 30 days and I have reviewed it.: Yes Section B Chief Complaint: Abnormal uterine and vaginal bleeding, Allergies: Allergies Allergy/AdvReac Type Severity Reaction Status Date / Time SEAFOOD Allergy Severe Anaphylaxis Uncoded 10/22/22 13:34 Plan Diagnosis/Plan: Unchanged I have reviewed the history and physical and performed a pertinent physical examination on my patient. No changes have occurred unless specified. Time Spent With Patient Time: Total time managing care of this patient today ____ minutes.
--- NOTE | 2022-11-14 09:39 | PM.OP ---
Brief Operative Note Date of Service: 11/14/22 Pre-op diagnosis: AUB with polyp on pathology Post-op diagnosis: same (Normal endometrial cavity with no evidence of pathology) Procedure: Hysteroscopy D&C Surgeon: Rick Pham MD Anesthesia: GLMA Was an Brake Assembler used for this Procedure?: No Estimated blood loss (mL): 0 Pathology: other (Endometrial Scrapping.) Condition: stable Disposition: PACU
--- NOTE | 2022-11-14 09:40 | W.PM.OPN ---
Operative Note Operative Note Date of Service: 11/14/22 Narrative: Preop Diagnosis: Abnormal uterine bleeding endometrial polyp on EMB pathology Operation: Diagnostic Hysteroscopy, Dilataion & Curettage Post Op Diagnosis: Normal endometrial and endocervical cavity, no evidence of pathology QBL: Minimal Anesthesia: GLMA Surgeon: Rick Pham MD Tar Distillation Supervisor: None Complication: None Pathology: Endometrial Scrapings Procedure: The patient was put in the dorsal lithotomy position, scrubbed, and draped in the usual manner. A sterile speculum was inserted in the patient's vagina. The anterior lip of the cervix was grasped with a single tooth tenaculum. The cervix was dilated up to 5 mm, then the scope was inserted in the patient's uterus. Inspection revealed normal endocervical & endometrial cavity with no evidence of pathology. The scope was taken out of the uterine cavity , then sharp curetting was carried on with no complications. At the end of the procedure, all instruments were taken out of the patient uterine and vaginal cavity. The single tooth tenaculum was removed and homeostasis was assured using pressure. The patient tolerated the procedure well and was transferred to the PACU in a stable condition.
== END 2022-11-14 11:13 | disposition home or self-care (01) ==
PROVIDERS: Anesthesiology; PCP Registered Nurse; Visit Provider Obstetrics & Gynecology
PROC: 0UDB8ZZ Extraction of Endometrium, Via Natural or Artificial Opening Endoscopic (ICD-10-PCS; CPT 58558; principal; 2022-11-14 09:20)
DX: N93.9 Abnormal uterine and vaginal bleeding, unspecified (principal); D64.9 Anemia, unspecified; J45.909 Unspecified asthma, uncomplicated; I10 Essential (primary) hypertension; R42 Dizziness and giddiness; Z79.899 Other long term (current) drug therapy; F17.210 Nicotine dependence, cigarettes, uncomplicated
CPT/HCPCS: 58558; 81025; 88305; J1100; J1885; J2250; J2405

== ENCOUNTER → 2022-11-14 07:20 | Outpatient (BNV) | payer MEDICAID, SELFPAY | PROVIDERS: PCP Registered Nurse; Visit Provider Obstetrics & Gynecology | DX: N93.9 Abnormal uterine and vaginal bleeding, unspecified (principal) | CPT/HCPCS: 58558; 99499 ==

== ENCOUNTER 2022-11-25 12:44 | Outpatient (AMB) | payer MEDICAID, SELFPAY ==
--- NOTE | 2022-11-25 13:21 | MHC.OFFVIS ---
Intake Vital Signs 11/25/22 13:21 Height 5 ft 4 in Weight 175 lb BMI 30.0 Intake Visit Reasons: post op Drying And Winding Supervisor Required: Yes Drying And Winding Supervisor Language: Infection Control Specialist Name: Jacinta CEJA Information Interpreted: non-clinical & clinical Accompanied by: Self / Same As Patient Allergies SEAFOOD Allergy (Severe, Uncoded 11/25/22 13:32) Anaphylaxis HPI HPI Comments History of Present Illness Details The patient is presenting post hysteroscopy D&C no complaints minimal vaginal bleeding no feverishness chills or abdominal pain. The pathology showed the following: - Fragment of benign endometrium (lower uterine segment) with some features of polyp. - Inactive endometrium. - Fragments of endocervical and squamous epithelium within normal limits. - No atypia identified. The DUB following workup was done.: H&H= 12.4/37.6 TSH, PRL, hCG, GC and chlamydia were negative. LH/FSH premenopausal range Endometrial biopsy pathology showed no evidence of hyperplasia and/or malignancy, fragments of endometrial polyp. Co testing was done was negative. Mammogram in 04/23 was BI-RADS 1 Pelvic ultrasound showed the following: Uterus: The uterus is anteverted and anteflexed. The uterus measures 9.1 x 3.9x 6.0 cm. The double wall endometrial thickness is 1.3 mm. The endometrial stripe is somewhat ill-defined. Within the lower endometrial canal, there is a small nonspecific fluid collection. The uterus is smooth in contour and has normal myometrial echogenicity. No visible fibroid. Adnexa: Both ovaries are visualized. There is normal color flow to the adnexa. There is no ovarian torsion. There is a small amount of nonspecific free fluid within the cul-de-sac. Right ovary measures 2.2 x 1.3 x 1.7 cm, volume 2.7 mL. Left ovary measures 2.7 x 2.2 x 2.3 cm, volume 7.2 mL. PFSH Medical History Anemia Asthma Bipolar 1 disorder Depression Hypertension Migraine Pituitary abnormality Vertigo Surgical History deliv NOS-unsp H/O myomectomy Status post trigger finger release Family History Mother Hypertension Emphysema lung Father Hypertension Epilepsy Social History Alcohol intake: former Patient Tobacco Use Status: Current someday Tobacco user Cigarettes Per Day: 7 Current occupational status: unemployed Current occupation: Right Handed Female Reproductive History Menstrual Age of Menarche: 13 Review of Systems Const All systems reviewed & are unremarkable except as noted in HPI and below Reports as per HPI and Reports no additional complaints GI Reports no additional complaints Reports no additional complaints Physical Exam Vital Signs: BMI result Body Mass Index 30.0 Assessment & Plan Assessment & Plan (1) Abnormal uterine bleeding (AUB): Code(s): N93.9 - Abnormal uterine and vaginal bleeding, unspecified Plan: Discussed with the patient the results of the work up done and options of treatment including Mirena IUD, endometrial ablation , cyclic progesterone and hysterectomy. All pros, cons, risks and benefits if each option was discussed with the patient and the patient decided to think about it and get back to us. All questions answered the patient verbalized understanding. Coding Level of Care Code Est Pt Level 3 (43755) Diagnoses Abnormal uterine bleeding (AUB) N93.9
== END 2022-11-25 16:24 | disposition home or self-care (01) ==
LOC: HO.HWS 12:44
PROVIDERS: PCP Registered Nurse; Visit Provider Obstetrics & Gynecology
DX: N93.9 Abnormal uterine and vaginal bleeding, unspecified (principal)
CPT/HCPCS: 99213

== ENCOUNTER → 2022-11-25 12:44 | Outpatient (BNVA) | payer MEDICAID, SELFPAY | PROVIDERS: PCP Registered Nurse; Visit Provider Obstetrics & Gynecology | DX: G56.03 Carpal tunnel syndrome, bilateral upper limbs (principal); M65.341 Trigger finger, right ring finger; M65.351 Trigger finger, right little finger; R20.0 Anesthesia of skin; R20.2 Paresthesia of skin; N93.9 Abnormal uterine and vaginal bleeding, unspecified; Z98.890 Other specified postprocedural states; Z98.891 History of uterine scar from previous surgery | CPT/HCPCS: 99212 ==

== ENCOUNTER 2022-11-25 14:00 | Outpatient (AMB) | payer MEDICAID, SELFPAY ==
--- NOTE | 2022-11-25 14:10 | MHC.OFFVIS ---
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 States her right hand is currently worse. Hx of failed right RF trigger release [address] Mix. Patient currently complaining of increase of numbness at night time or when she is holding her phone for too long. Also has pain in her small finger MC and is not able to make a full close fist. No injury she can recall. No recent EMG. 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 She complains of numbness in all the digits of her bilateral hands, worse at night or with activities such as holding her phone for prolonged periods. This includes the small fingers. She complains her fingers feel cold . She also has a hx of a right ring finger trigger release by Dr. Mix in 2019. She says this failed and she continued to have locking of the ring finger with activities She also complains of pain in her right small finger and says she cannot make a fully closed fist. She denies any falls or recent injury. She has not had a recent NCS performed. She says she is a smoker [facility] Medical History Anemia Asthma Bipolar 1 disorder Depression Hypertension Migraine Pituitary abnormality Vertigo Surgical History deliv NOS-unsp H/O myomectomy Status post trigger finger release Family History Mother Hypertension Emphysema lung Father Hypertension Epilepsy Social History Alcohol intake: former Patient Tobacco Use Status: Current someday Tobacco user Cigarettes Per Day: 7 Current occupational status: unemployed Current occupation: Right Handed Female Reproductive History Menstrual Age of Menarche: 13 Review of Systems Const All systems reviewed & are unremarkable except as noted in HPI and below Physical Exam Vital Signs: BMI result Body Mass Index 30.0 Const General: cooperative, healthy appearing and no acute distress Orientation/consciousness: patient oriented x3 HEENT Head: Yes normocephalic and Yes atraumatic Eyes EOM: EOMs intact bilaterally Resp Effort & Inspection: normal respiratory effort and able to speak in complete sentences Cardio Jugular venous distension: no JVD Skin General skin exam: turgor normal Rashes: no rashes Neuro General: patient oriented x3 Extrem Other: Evaluation of Right Upper Extremity: The patient is alert, oriented, and in no acute distress Neuro: Median, Ulnar, Radial nerves motor and sensory intact and sensation is normal to the tips of all digits No thenar or intrinsic wasting Good APB muscle belly firing and good finger cross Vascular: Cap refill brisk ROM: Visible and palpable locking and catching of the right ring finger FDS tendon. She locked with PIP joint flexion but not DIP joint flexion Visible and palpable locking and catching of the right small finger Tender over the a1 george of the right ring & small fingers Skin: No lacerations or abrasions. General: No Ecchymosis. No Erythema or evidence of infection. Psych Appearance: grossly normal Affect: normal affect Attitude: cooperative Assessment & Plan Assessment & Plan (1) Bilateral hand numbness: Code(s): R20.0 - Anesthesia of skin (2) Trigger ring finger of right hand: Code(s): M65.341 - Trigger finger, right ring finger (3) Trigger little finger of right hand: Code(s): M65.351 - Trigger finger, right little finger Plan Assessment & Plan: 1. Right ring finger trigger finger, S/P release DOS: [address] Mix She says her locking returned ~2 months following this surgery She continues to have locking & catching of her finger, mostly with activities 2. Right small finger trigger finger I educated her about this condition I discussed operative treatment options The patient would like to proceed with surgery The risks and benefits of operative treatment were discussed with the patient and the patient wishes to proceed with surgery. These risks include, but are not limited to risk of damage to blood vessels, nerves, tendons, infection, recurrence, incomplete relief of preoperative symptoms, persistent pain, possible need for further surgery and the risks associated with regional blocks and anesthesia. The plan is to take the patient to the operating room sometime in the next few weeks for the following procedures: 1. Right ring trigger finger repeat release, under local. 2. Right small trigger finger release, under local As this is a repeat ring finger trigger finger, she may possibly need a tenotomy of the ulnar slip of the FDS tendon All of the preoperative paperwork including the consent was filled out today. All the patient's questions were answered. The patient understands that they will be contacted by our meat service team member soon to schedule this procedure She denies Diabetes, blood thinners, asthma, heart, lung, kidney issues 3. Right hand numbness Symptoms intermittent, but daily, worse at night or with activity To the tips of all digits 4. Left hand numbness Symptoms intermittent, but daily, worse at night or with activity To the tips of all digits I ordered a NCS to assess for peripheral neuropathy She will follow up when completed for review Scribed for Tameka Swenson MD by Clark Castañeda, medical laboratory specialist, on 11/25/22 at 3:20 PM, EST. Orders: Orders NE nerve conduction velocity Today R20.0 - Anesthesia of skin, R20.2 - Paresthesia of skin Coding Level of Care Code Est Pt Level 4 (99859) Diagnoses Bilateral hand numbness R20.0 Trigger ring finger of right hand M65.341 Trigger little finger of right hand M65.351
== END 2022-11-25 15:38 | disposition home or self-care (01) ==
PROVIDERS: Visit Provider Orthopaedic Surgery
DX: M65.341 Trigger finger, right ring finger (principal); M65.351 Trigger finger, right little finger; R20.0 Anesthesia of skin
CPT/HCPCS: 99214

== ENCOUNTER → 2022-12-01 12:45 | Outpatient (BNV) | payer MEDICAID, SELFPAY | PROVIDERS: PCP Registered Nurse; Visit Provider Radiology Diagnostic Radiology | DX: Z12.31 Encounter for screening mammogram for malignant neoplasm of breast (principal) | CPT/HCPCS: 77063; 77067 ==

== ENCOUNTER 2022-12-01 12:55 | Outpatient (REF) | payer MEDICAID, SELFPAY ==
--- NOTE | ~2022-12-01 | MM_ITS ---
EXAMINATION: MM SCREENING DIGITAL BREAST TOMOSYNTHESIS, BILATERAL CLINICAL INFORMATION: Screening. Asymptomatic. The lifetime risk of breast cancer based on the Tyrer-Cuzick Model is 11.8%. COMPARISON: Mammography: This study is compared with prior exams dating back to 2018. TECHNIQUE: Digital breast tomosynthesis is performed in both the craniocaudal and mediolateral oblique views along with computer-aided detection (CAD). Synthesized 2D images are generated from the tomosynthesis. FINDINGS: There are scattered areas of fibroglandular density (ACR BI-RADS breast composition Category b). There are no significant masses, abnormal calcifications, or other abnormalities. MM/MM tomosynthesis screening BI IMPRESSION: No mammographic evidence of malignancy. ASSESSMENT: BI-RADS BI-RADS 1 - Negative RECOMMENDATION: Routine annual mammography screening. 1 year F/U This examination should not preclude the clinical evaluation of a suspicious palpable abnormality. This patient's information was entered into a reminder system with a target due date for their next mammogram.
== END 2022-12-01 12:56 | disposition home or self-care (01) ==
LOC: HO.MAMMO 12:55
PROVIDERS: PCP Registered Nurse; Visit Provider Obstetrics & Gynecology
DX: Z12.31 Encounter for screening mammogram for malignant neoplasm of breast (principal)
CPT/HCPCS: 77063; 77067

== ENCOUNTER 2023-01-20 11:47 | Outpatient (AMB) | payer MEDICAID, SELFPAY ==
[2023-01-20 12:41] VITALS: BP 124/82; BMI 29.9
--- NOTE | 2023-01-20 12:41 | A.OFFVIS_ITS ---
Intake Vital Signs 01/20/23 12:41 Height 5 ft 4 in Weight 174 lb 2.643 oz BMI 29.9 BP 124/82 Intake Visit Reasons: consult Generating Plant Superintendent Required: Yes Generating Plant Superintendent Language: Full Stack Python Developer Name: Jacinta CEJA Information Interpreted: non-clinical & clinical Accompanied by: Self / Same As Patient Allergies SEAFOOD Allergy (Severe, Uncoded 01/20/23 12:42) Anaphylaxis HPI HPI Comments History of Present Illness Details Presenting discuss possibility of getting . The patient went to reproductive endocrinology for a consult then was told that she is not a candidate for IVF. 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 Female Reproductive History Menstrual Age of Menarche: 13 Review of Systems Const All systems reviewed & are unremarkable except as noted in HPI and below Reports as per HPI and Reports no additional complaints GI Reports no additional complaints Reports no additional complaints Physical Exam Vital Signs: Last Vital Signs BP 124/82 01/20/23 12:41 BMI result Body Mass Index 29.9 Assessment & Plan Assessment & Plan (1) consult: Code(s): Z71.89 - Other specified counseling Plan: Discussed the patient the chance of getting at the age of 47 is around 1%, in addition discussed with the patient the the following possible complications in case of : -advanced maternal age complications including but not limited to increase in the risk of hypertension and preeclampsia, gestation diabetes, placenta accreta, hemorrhage, increase in genetic abnormality, increase in the risk of spontaneous and others -2 previous with history of myomectomy-risk of adhesions, placenta accreta, hemorrhage and risk of hysterectomy, possible pelvic adhesions with all its potential complications -asthma presents possible complications possible exacerbation Recommended vitamin tablet p.o. q.d.. All questions answered, the patient verbalized understanding Medications: New no.144-folic acid 400 mcg 1 tab PO DAILY 180 days 180 tabs 1RF Coding Level of Care Code Est Pt Level 3 (06274) Diagnoses consult Z71.89
== END 2023-01-20 13:20 | disposition home or self-care (01) ==
PROVIDERS: PCP Registered Nurse; Visit Provider Obstetrics & Gynecology
DX: Z71.89 Other specified counseling (principal)
CPT/HCPCS: 99213

== ENCOUNTER → 2023-01-20 11:47 | Outpatient (BNVA) | payer MEDICAID, SELFPAY | PROVIDERS: PCP Registered Nurse; Visit Provider Obstetrics & Gynecology | DX: Z71.89 Other specified counseling (principal) | CPT/HCPCS: 99212 ==

== ENCOUNTER 2023-03-03 11:26 | Outpatient (AMB) | payer MEDICAID, SELFPAY ==
--- NOTE | 2023-03-03 11:26 | MHC.OFFVIS ---
Intake Vital Signs 03/03/23 11:34 Height 5 ft 4 in Weight 174 lb 2.643 oz BMI 29.9 BP 120/84 Intake Visit Reasons: irreg menses National Sales Consultant Required: Yes National Sales Consultant Language: Kiswahili Information Interpreted: non-clinical & clinical Senior Field Engineer: Senior Field Engineer Present (Jacinta De La Torre BRENNA) Accompanied by: Self / Same As Patient Allergies SEAFOOD Allergy (Severe, Uncoded 03/03/23 11:27) Anaphylaxis Medication List - Last Reconciled 03/03/23 by Cheyenne Enriquez CNM albuterol sulfate 90 mcg/actuation (Ventolin HFA) 2 puffs inhalation Q6H PRN albuterol sulfate 2.5 mg inhalation Q4H PRN cetirizine 10 mg PO QAM folic acid 400 mcg PO DAILY sumatriptan succinate 25 mg PO ONCE PRN Is last menstrual period known: Yes Last menstrual period: 01/21/23 HPI irreg menses HPI Details Patient is here because her period is late and she says that she is not premenopausal and she was hoping that she could get something to bring on ovulation she keeps doing ovulation predictor kits and they are negative negative negative. She is looking to have her girl because she lost her baby girl 9 years ago at term and then she was looking for the girl so she had 3 boys and rapid succession 1 year after each but she is still hoping she could have her girl she says she did not get to really grief though she does have a counselor. In addition she says she was seeing an occupational work experience teacher to give her medicine for her pituitary gland but has not seen that person in a while and also her primary care person changed. 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 Code(s): F43.21 - Adjustment disorder with depressed mood Plan Patient is here because her period is late and she says that she is not premenopausal and she was hoping that she could get something to bring on ovulation she keeps doing ovulation predictor kits and they are negative negative negative. She is looking to have her girl because she lost her baby girl 9 years ago at term and then she was looking for the girl so she had 3 boys and rapid succession 1 year after each but she is still hoping she could have her girl she says she did not get to really grief though she does have a counselor. In addition she says she was seeing an occupational work experience teacher to give her medicine for her pituitary gland but has not seen that person in a while and also her primary care person changed. I recommend that she continue with her support via her counselor. I knowledge the pain of not having fully grieved the loss of a child and how difficult that must be and the grief is still with her. I recommend that she call up the occupational work experience teacher who she was seeing and last had appointments with and seek continued prescriptions or follow-up for her pituitary gland. I informed the patient that I would not be engaging in infertility treatments for her as it would not be appropriate. I also re stated that it is possible to a both ovulate less frequently and have menses more irregularly as time gets closer towards menopause. Previous visits and ultrasounds and evaluations were all reviewed. Orders: Orders AMB HCG Urine Test Today Z32.02 - Encounter for test, result negative Coding Level of Care Code Est Pt Level 3 (76301) Diagnoses Menstrual periods irregular N92.6 Perimenopause N95.1 Grief associated with loss of fetus F43.21
[2023-03-03 11:34] VITALS: BP 120/84; BMI 29.9
== END 2023-03-03 13:07 | disposition home or self-care (01) ==
LOC: HO.HWS 11:26
PROVIDERS: PCP Registered Nurse; Visit Provider Advanced Practice Midwife
DX: N92.6 Irregular menstruation, unspecified (principal); N95.1 Menopausal and female climacteric states; F43.21 Adjustment disorder with depressed mood; Z32.02 Encounter for pregnancy test, result negative
CPT/HCPCS: 99213

== ENCOUNTER → 2023-03-03 11:26 | Outpatient (BNVA) | payer MEDICAID, SELFPAY | PROVIDERS: PCP Registered Nurse; Visit Provider Advanced Practice Midwife | DX: N92.6 Irregular menstruation, unspecified (principal); N95.1 Menopausal and female climacteric states; F43.21 Adjustment disorder with depressed mood; Z32.02 Encounter for pregnancy test, result negative | CPT/HCPCS: 81025; 99212 ==

== ENCOUNTER 2024-02-29 15:16 | Outpatient (AMB) | payer MEDICAID, SELFPAY ==
--- NOTE | 2024-02-29 15:20 | MHC.OFFVIS ---
Vital Signs 02/29/24 15:22 Height 5 ft 4 in BP 132/60 Blood Pressure Location Lt brachial Position Sitting Intake Visit Reasons: painful menses Allergies SEAFOOD Allergy (Severe, Uncoded 02/29/24 15:24) Anaphylaxis Is last menstrual period known: Yes Last menstrual period: 01/25/24 HPI Comments Details: Presenting complaining of 3 months history of dysmenorrhea with no associated abnormal heavy bleeding. No vaginal discharge. 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 Reproductive History Menstrual Age of Menarche: 13 Duration of menses: 3-5 days Date of last menstrual period: 01/25/24 control method: none Review of Systems Const All systems reviewed & are unremarkable except as noted in HPI and below Physical Exam Vital Signs: Last Vital Signs BP 132/60 02/29/24 15:22 General: Yes no CVA tenderness External Female Exam: normal external appearance and normal appearance of the urethra Speculum Exam - Vagina: normal appearance of the vagina, normal palpation, no lesions and no masses Speculum Exam - Cervix: normal appearance of the cervix, normal palpation, no lesions, no masses and nontender Bimanual exam- vagina & uterus: normal bimanual exam, normal palpation, uterine size normal, normal palpation, uterine shape normal, No Cervical tenderness present and non-tender Bimanual Exam- Adnexa, other: normal adnexae Back/Spine/Pelvis Back: no CVA tenderness Assessment & Plan Assessment & Plan (1) Dysmenorrhea: Code(s): N94.6 - Dysmenorrhea, unspecified Category: Medical Plan: GC/CT taken, pelvic ultrasound ordered with screening mammogram. Instructions given the patient to schedule an ultrasound mammogram and a follow-up appointment. All questions answered, the patient verbalized understanding. Coding Level of Care Code Est Pt Level 3 (20734) Diagnoses Dysmenorrhea N94.6
[2024-02-29 15:22] VITALS: BP 132/60
== END 2024-02-29 15:45 | disposition home or self-care (01) ==
LOC: HO.HWS 15:17
PROVIDERS: PCP Registered Nurse; Visit Provider Obstetrics & Gynecology
DX: N94.6 Dysmenorrhea, unspecified (principal)
CPT/HCPCS: 99213

== ENCOUNTER 2024-02-29 15:16 | Outpatient (REF) | payer MEDICAID, SELFPAY | END 2024-02-29 15:17 | disposition home or self-care (01) | LOC: HO.LNP 15:16 | PROVIDERS: PCP Registered Nurse; Visit Provider Obstetrics & Gynecology | DX: N94.6 Dysmenorrhea, unspecified (principal) | CPT/HCPCS: 99212 ==

== ENCOUNTER 2024-02-29 15:49 | Outpatient (REF) | payer MEDICAID, SELFPAY ==
[2024-03-02 03:03] LABS: CT PCR NOT DETECTED (Not Detect.); NG PCR NOT DETECTED (Not Detect.)
== END 2024-02-29 15:50 | disposition home or self-care (01) ==
LOC: HO.LNP 15:49
PROVIDERS: Visit Provider Obstetrics & Gynecology
DX: N94.6 Dysmenorrhea, unspecified (principal)
CPT/HCPCS: 87491; 87591

== ENCOUNTER 2024-05-23 10:24 | Outpatient (AMB) | payer MEDICAID, SELFPAY ==
--- NOTE | 2024-05-23 11:22 | A.OFFVIS_ITS ---
Intake Visit Reasons: Pelvic pain Iron Assorter: Iron Assorter Present (Kia) Accompanied by: Self / Same As Patient Allergies SEAFOOD Allergy (Severe, Uncoded 02/29/24 15:24) Anaphylaxis Medication List - Last Reconciled 05/23/24 by Cheyenne Enriquez CNM albuterol sulfate 90 mcg/actuation (Ventolin HFA) 2 puffs inhalation Q6H PRN albuterol sulfate 2.5 mg inhalation Q4H PRN Is last menstrual period known: Yes Last menstrual period: 05/04/24 Post menopausal: No Patient : No HPI HPI Pelvic pain: Details: Has a appointment labeled as for pelvic pain but she tells me it is really for follow-up from an ER visit last week and her real complaint today is vaginal discharge. She is not particularly worried about infection but she has a lengthy story about having very severe pain in her abdomen more on her left side last week she ended up going to the emergency room because she was having chills and she was thought she had an infection because 1 of her sons had an infection that he caught from school and he she thought it might be a virus and she had every test possible in the ER including blood tests urine tests cultures for infection ultrasound and CT scan and only when they put the dye in with the CT scan did they see that she had a cyst in her left ovary that had ruptured. The pain went away and it is gone now she is not complaining of any pain whatsoever today. She does not have records from that ER visit, which was at [facility]. She says they did not keep her. She says that they told her that if it had not ruptured she might have needed surgery but because it ruptured she did not. She thinks that the discharge she is getting be is because of the ruptured cyst and the fluid that needs to come out from it having ruptured.. Patient has been seen here in the past by many providers and says she has an appointment for follow-up with software engineering supervisor here in this office. She says she has been trying to get for years to try to get her girl she lost her 1st at term which was a girl and she has 6 boys. She is having sex about every other day she says she gets regular monthly periods but they do not necessarily come on the same day she says that last March it was late. Her last periods started the beginning of May the pain lasted for 3 days and it was last week midcycle in timing. 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 Bimanual deferred as the patient is denied any pelvic pain whatsoever today. External Female Exam: normal external appearance and normal appearance of the urethra Speculum Exam - Vagina: normal appearance of the vagina and normal vaginal discharge Speculum Exam - Cervix: normal appearance of the cervix and Cervical os closed Results Reviewed Results Reviewed: No records from [facility] ER visit in chart.. Assessment & Plan Assessment & Plan (1) Grief associated with loss of fetus: Comment: 9 years ago at term, IUFD, her only daughter.... Code(s): F43.21 - Adjustment disorder with depressed mood Category: Medical (2) Vaginal discharge: Code(s): N89.8 - Other specified noninflammatory disorders of vagina Category: Medical (3) Ovarian cyst: Comment: The patient states she had ruptured ovarian cyst diagnosed at [facility] ER last week after 3 days with pain. Patient to sign for records. Code(s): N83.209 - Unspecified ovarian cyst, unspecified side Category: Medical Plan Has a appointment labeled as for pelvic pain but she tells me it is really for follow-up from an ER visit last week and her real complaint today is vaginal discharge. She is not particularly worried about infection but she has a lengthy story about having very severe pain in her abdomen more on her left side last week she ended up going to the emergency room because she was having chills and she was thought she had an infection because 1 of her sons had an infection that he caught from school and he she thought it might be a virus and she had every test possible in the ER including blood tests urine tests cultures for infection ultrasound and CT scan and only when they put the dye in with the CT scan did they see that she had a cyst in her left ovary that had ruptured. The pain went away and it is gone now she is not complaining of any pain whatsoever today. She does not have records from that ER visit, which was at [facility]. She says they did not keep her. She says that they told her that if it had not ruptured she might have needed surgery but because it ruptured she did not. She thinks that the discharge she is getting be is because of the ruptured cyst and the fluid that needs to come out from it having ruptured.. Patient has been seen here in the past by many providers and says she has an appointment for follow-up with software engineering supervisor here in this office. She says she has been trying to get for years to try to get her girl she lost her 1st at term which was a girl and she has 6 boys. She is having sex about every other day she says she gets regular monthly periods but they do not necessarily come on the same day she says that last March it was late. Her last periods started the beginning of May the pain lasted for 3 days and it was last week midcycle in timing.- Patient needs to keep her appointment with software engineering supervisor as scheduled. I requested that she sign for records for all testing and evaluations done in the [facility] ER so that he has a access to a during that visit. Discussed with her that while her discharge may in some way have something to do with a ruptured cyst there is no way that are tests could verify that 1 way or the other and did the testing we do is only for infection. If she were having pain or something today that would warrant a different type of exam and plan however the only thin g appropriate today was to do cultures and request for her to sign records. She is unsure who her current primary care provider's since her previous 1 retired though her previous 1 retired some years ago from the [employer]. She does not like taking multivitamins. I did ask her to keep track of her cycle in detail and I reviewed with her the subjective signs of ovulation that she might want to keep track of including increased clear fertile type mucus and increased libido around the time of ovulation but I also discussed quite frankly that fertility does diminish as we get older and the chances of getting get less. I do recommend she take vitamins but she does not like to take vitamins. I also discussed that if she was interested in fertility guidance she would need to get a referral from her primary care provider. Coding Level of Care Code Est Pt Level 3 (95012) Diagnoses Grief associated with loss of fetus F43.21 Vaginal discharge N89.8 Ovarian cyst N83.209 Time Spent (min) 45 Comment lengthy visit 2' history taking detail
== END 2024-05-23 12:13 | disposition home or self-care (01) ==
LOC: HO.HWSM 10:24
PROVIDERS: PCP Registered Nurse; Visit Provider Advanced Practice Midwife
DX: F43.21 Adjustment disorder with depressed mood (principal); N89.8 Other specified noninflammatory disorders of vagina; N83.209 Unspecified ovarian cyst, unspecified side
CPT/HCPCS: 99213

== ENCOUNTER 2024-05-23 10:24 | Outpatient (REF) | payer MEDICAID, SELFPAY ==
[2024-05-25 03:22] LABS: CT PCR NOT DETECTED (Not Detect.); NG PCR NOT DETECTED (Not Detect.)
[2024-05-25 13:48] LABS: Bacterial Vaginosis PCR NEGATIVE (Negative); Candida Group PCR NOT DETECTED (Not Detect); Candida glab krusei PCR NOT DETECTED (Not Detect); Trichomonas vaginalis PCR NOT DETECTED (Not Detect)
== END 2024-05-23 10:25 | disposition home or self-care (01) ==
LOC: HO.LNP 10:24
PROVIDERS: PCP Registered Nurse; Visit Provider Advanced Practice Midwife
DX: F43.21 Adjustment disorder with depressed mood (principal); N89.8 Other specified noninflammatory disorders of vagina; N83.209 Unspecified ovarian cyst, unspecified side
CPT/HCPCS: 81515; 87491; 87591; 99212

== ENCOUNTER 2024-05-23 14:46 | Outpatient (REF) | payer MEDICAID, SELFPAY | END 2024-05-23 14:47 | disposition home or self-care (01) | LOC: HO.LAB 14:46 | PROVIDERS: Visit Provider Advanced Practice Midwife | DX: Z13.89 Encounter for screening for other disorder (principal) ==

== ENCOUNTER 2024-08-05 10:46 | Outpatient (REF) | payer MEDICAID, SELFPAY ==
--- NOTE | ~2024-08-05 | US_ITS ---
EXAMINATION: US PELVIS TRANSABDOMINAL AND TRANSVAGINAL HISTORY: N94.6 - Dysmenorrhea, unspecified COMPARISON: Comparison is made with the prior examination dated 05/29/2022. TECHNIQUE: Transabdominal and endovaginal real-time 2D hebert-scale ultrasound was performed. FINDINGS: Uterus: The uterus is mildly enlarged, measuring 11.6 x 3.8 x 5.8 cm. Myometrium has a heterogeneous echotexture. Again seen is an 8 x 6 x 8 mm fibroid on the right. Endometrium: The endometrial stripe difficult to visualize, but appears to measure 5 mm in thickness. Right ovary: The right ovary measures 1.3 x 2.0 x 1.2 cm. The right ovary is normal in size and echotexture. Left ovary: The left ovary measures 0.8 x 1.7 x 1.3 cm. The left ovary is normal in size and echotexture. Pelvic fluid: none. US/US pelvic and transvaginal IMPRESSION: 8 mm uterine fibroid. Heterogeneous appearing uterus. The endometrial stripe is not well visualized. Electronically signed by: Mauricio Garcia MD 08/05/2024 11:57 AM EDT
--- OUTSIDE RECORDS SUMMARY | 2024-08-05 12:24 | XMS_ITS | Clinical Summary ---
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 Active naproxen (Naprosyn) 500 mg tablet Take 1 tablet (500 mg total) by mouth 2 (two) times a day if needed for moderate pain. 60 tablet 07/26/2024 07/27/19 26 Active norethindrone (AYGESTIN) 5 mg tablet Take 1 tablet (5 mg total) by mouth 1 (one) time each day. 30 each 11 08/03/2024 08/04/19 26 Active Active Problems Problem Noted Date Diagnosed Date Current tobacco use 07/26/2024 Fibroid uterus 11/29/2019 Overview (05/31/2024): Uterus: 11.7 x 7.3 x 6.8 cm in size. ??Anteflexed in the midline. ??4.4 x 4.0 x 3.7 cm heterogeneous hypoechoic mass in the anterior fundus toward the right likely represents a fibroid. ??Uterine echotexture is mildly heterogeneous possibly secondary to underlying fibroid disease Encounters Date Type Department Care Team Description 07/27/2024 Telephone Obstetrics & Gynecology - [address] [phone] Pippa Dobbins CNM med refill 07/26/2024 11:30 AM EDT Office Visit Obstetrics and Gynecology [address] [phone] Pippa Dobbins CNM Uterine leiomyoma, unspecified location (Primary Dx); DUB (dysfunctional uterine bleeding); History of prolactinoma; Current tobacco use 06/29/2024 Telephone Obstetrics & Gynecology [address] [phone] Pippa Dobbins CNM er follow 06/28/2024 7:59 PM EST - 06/29/2024 1:[address] [phone] Dysmenorrhea (Primary Dx); Uterine leiomyoma, unspecified location Discharge Disposition: Home or Self Care 06/07/2024 Telephone Obstetrics & Gynecology [address] [phone] Pippa Dobbins CNM er follow up 05/30/2024 Telephone Obstetrics [address] [phone] Pippa Dobbins CNM er follow up 05/18/2024 11:19 PM EST - 05/19/2024 4:12 AM [facility] Emergency [address] [place] [phone] Lower abdominal pain (Primary Dx); Cyst of right ovary Discharge Disposition: Home or Self Care from Last 3 Months Immunizations Name Administration Dates Next Due Hepatitis B ([id number] , Recombivax HB-Adult) 19yo and older 11/05/2010,06/26/2010,02/22/2010 Tdap Tetanus diptheria acell ular pertussis (Boostrix; Adacel) 7yo and older 06/27/2015,07/14/2014,09/16/2013 Surgical History Surgery Date Site/Laterality Comments SECTION 2016 PROCEDURE: HISTORICAL DELIVERY OTHER SURGICAL HISTORY 2011, 2011, 2003 PROCEDURE: MT DILATION & CURETTAGE DX&/THER NONOBSTETRIC; COMMENT: x3 Medical History Medical History Date Comments Depression DX:Depression Anxiety DX:Anxiety Asthma DX:Asthma Essential hypertension DX:Essent ial hypertension Migraines Family History Medical History Relation Name Comments Diabetes Aunt Lung cancer Aunt Stroke Aunt Hypertension Father Stroke Father Arthritis Mother Asthma Mother Hypertension Mother Stroke Mother Hypertension Sister ADD / ADHD Son 1 Other: autism Son 1 ADD / ADHD Son 2 Other: autism Son 2 Other: autism Son 3 Other: autism Son 4 Breast cancer Neg Hx Colon cancer Neg Hx Ovarian cancer Neg Hx Prostate cancer Neg Hx Relation Name Status Comments Aunt Father Mother Sister Son 1 Son 2 Son 3 Son 4 Social History Tobacco Use Types Packs/Day Years Used Date Smoking Tobacco: Every Day Cigarettes Smokeless Tobacco: Never Alcohol Use Standard Drinks/Week Comments No 0 (1 standard drink = 0.6 oz pur e alcohol) Comments No Sex and Gender Information Value Date Recorded Sex Assigned at Not on file Legal Sex Female 2:27 AM EST Gender Identity Not on file Sexual Orientation Not on file Obstetrics History Para Term AB IAB SAB Ectopic Multiple Livin g Live Births 6 5 5 1 1 4 5 Date Outcome GA Total Labor Labor/2nd/3rd Weight Sex Type Anes PTL Manjula A1 A5 Name Clin 8 Term 38w 0d 2778 g (98 oz) M Vag-S pont None Livin g Delivery Location:[facility] 2011 IAB 4 Term 40w 0d 2325 g (82 oz) F Vag-S pont Epidur al Decea sed Delivery Location:[facility] Comments:IUFD 5 Term 38w 0d 2722 g (96 oz) M Vag-S pont Livin g Delivery Location:[facility] 2015 Term 37w 3d 3317 g (117 oz) M CS-LT ranv Spinal Livin g Dr Hitchcock Complications:Transverse lie of fetus,Footling breech presentation Delivery Location:[facility] Comments:transverse fo otling breech 2016 Term 38w 6d 3033 g (107 oz) M CS-Un spec Spinal Livin g Dr. Xavier ood Delivery Location:[facility] Filed Vital Signs Vital Sign Reading Time Taken Comments Blood Pressure 155/91 07/26/2024 11:54 AM EDT Pulse 59 07/26/2024 11:54 AM EDT Temperature 36.6 ??C (97.9 ??F) 06/28/2024 6:38 PM ES T Respiratory Rate 12 07/26/2024 11:54 AM EDT Oxygen Saturation 99% 06/28/2024 6:38 PM EST Inhaled Oxygen Concentration - - Weight 70.3 kg (155 lb) 07/26/2024 11:54 AM EDT Height 162.6 cm (5' 4 ) 07/26/2024 11:54 AM EDT Body Mass Index 26.61 07/26/2024 11:54 AM EDT Plan of Treatment Upcoming Encounters Date Type Department Care Team (Late st Contact Info) Description 08/31/2024 11:15 AM EDT Office Visit Obstetrics & [address] [phone] Pippa Dobbins, [address] [address] 11/02/2024 1:00 PM EDT Office Visit Obstetrics & [address] [phone] Pippa Dobbins, [address] [address] Health Maintenance Due Date Last Done Comments Pneumococcal Vaccine: Pediatrics (0 to 5 Years) and At-Risk Patients (6 to 64 Years) (1 of 2 - PCV) 10/12/1995 Breast Cancer Screening 11/28/2019 11/27/2017 Colorectal Cancer Screening: Colonoscopy 04/06/2022 Social Influencers of Health Screening 04/06/2022 COVID-19 Vaccine ( season) 2024 Cervical Cancer Screening: HPV 06/01/2024 06/01/2019 Influenza Vaccine (Season Ended) 2025 02/26/2021, 02/22/2020, 01/15/2018, Additional history exists Hypertension/CHF/CAD Annual BMP Blood Test 06/28/2025 06/28/2024, 05/18/2024, 06/19/2016 Depression Screening 07/15/2025 07/15/2024 Cholesterol Screening (Lipid Panel) 05/13/2026 05/13/2021 DTaP,Tdap,and Td Vaccines (6 - Td or Tdap) 01/16/2028 01/15/2018, 06/27/2015, 07/14/2014, Additional history exists Hepatitis B Vaccines Completed 11/05/2010, 06/26/2010, 02/22/2010 HIV Screening Completed 06/01/2019 Hepatitis C Screening Completed 06/01/2019 HIB Vaccines Aged Out No longer eligi ble based on patient's age to complete this topic HPV Vaccines Aged Out No longer eligi ble based on patient's age to complete this topic Hepatitis A Vaccines Aged Out No long er eligible based on patient's age to complete this topic IPV Vaccines Aged Out No longer eligi ble based on patient's age to complete this topic MMR Vaccines Aged Out No longer eligi ble based on patient's age to complete this topic Meningococcal ACWY Vaccine Aged Out N o longer eligible based on patient's age to complete this topic Meningococcal B Vacine Aged Out No lo nger eligible based on patient's age to complete this topic RSV Immunization Patients Under 20 months Aged Out No longer eligible based on patient's age to complete this topic Varicella Vaccines Aged Out No longer eligible based on patient's age to complete this topic Procedures Procedure Name Priority Date/Time Associated Diagnosis Comments PROLACTIN Routine 07/26/2024 12:38 PM EDT DUB (dysfunctional uterine bleeding) History of prolactinoma FOLLICLE STIMULATING HORMONE Routine 07/26/2024 12:38 PM EDT DUB (dysfunctional uterine bleeding) History of prolactinoma THYROID STIMULATING HORMONE WITH REFLEX TO FREE T4 AND FREE T3 Routine 07/26/2024 12:38 PM EDT DUB (dysfunctional uterine bleeding) History of prolactinoma [facility] URINE CULTURE TUBE STAT 06/29/2024 12:49 AM EST URINALYSIS WITH REFLEX MICROSCOPIC AND CULTURE STAT 06/29/2024 12:47 AM EST URINALYSIS WITH REFLEX MICROSCOPIC AND CULTURE STAT 06/29/2024 12:47 AM EST CULTURE URINE STAT 06/29/2024 12:47 AM EST US PELVIS NON OB COMPLETE STAT 06/28/2024 11:44 PM EST CBC WITH AUTO DIFFERENTIAL STAT 06/28/2024 10:11 PM EST BASIC METABOLIC PANEL STAT 06/28/2024 10:11 PM EST CBC AND DIFFERENTIAL STAT 06/28/2024 10:11 PM EST HCG, SERUM, QUALITATIVE STAT 06/28/2024 10:11 PM EST POC , URINE DIAGNOSTIC STAT 06/28/2024 7:[address] ABDOMEN PELVIS W CONTRAST STAT 05/19/2024 1:49 AM EST US PELVIS NON OB COMPLETE W TRANSVAGINAL STAT 05/19/2024 12:59 AM EST TRICHOMONAS VAGINALIS ANTIGEN STAT 05/18/2024 11:43 PM EST CHLAMYDIA TRACHOMATIS AND NEISSERIA GONORRHOEAE PCR STAT 05/18/2024 11:43 PM EST WET PREP, GENITAL STAT 05/18/2024 11: 43 PM EST POC , URINE DIAGNOSTIC STAT 05/18/2024 9:32 PM EST RAE URINE CULTURE TUBE STAT 05/18/2024 9:31 PM EST URINALYSIS WITH REFLEX MICROSCOPIC AND CULTURE STAT 05/18/2024 9:31 PM EST URINALYSIS WITH REFLEX MICROSCOPIC AND CULTURE STAT 05/18/2024 9:31 PM EST CULTURE URINE STAT 05/18/2024 9:31 PM EST CBC WITH AUTO DIFFERENTIAL STAT 05/18/2024 9:28 PM EST COMPREHENSIVE METABOLIC PANEL STAT 05/18/2024 9:28 PM EST CBC AND DIFFERENTIAL STAT 05/18/2024 9:28 PM EST HPV Routine 06/01/2019 HEPATITIS C SCREENING Routine 06/01/2019 HIV SCREENING Routine 06/01/2019 from Last 3 Months or Most Recently Relevant to Health Maintenance Results * Thyroid stimulating hormone with reflex to free t4 and free t3 (07/26/2024 12:38 PM EDT) Pathologist [facility] TSH 1.88 0.40 - 4.00 mcIU/mL LAB CHEMISTRY METHOD 07/26/2024 5:45 PM EDT [facility] Blood Venous blood specimen / Unknown Venipuncture / Unknown 07/26/2024 12:38 PM EDT 07/26/2024 12:38 PM EDT Pippa Dobbins [facility] BLOOD ORDERABLES Final Re sult [facility] [address] [place] [address], * Prolactin (07/26/2024 12:38 PM EDT) [facility] Prolactin 7.40 See Comment ng/mL LAB CHEMISTRY METHOD 07/26/2024 5:12 PM EDT [facility] Comment: Prolactin Reference Ranges (ng/mL) ??Non ?2.2 - ??30.3 ? 8.1 - 347.6 ??Postmenopausal 0.7 - ??31.5 Blood Venous blood specimen / Unknown Venipuncture / Unknown 07/26/2024 12:38 PM EDT 07/26/2024 12:38 PM EDT Pippa Dobbins [facility] BLOOD ORDERABLES Final Re sult [facility] [address] [place] [address], * Follicle stimulating hormone (07/26/2024 12:38 PM EDT) Follicle Stimulating Hormone 35.5 See Comment mIU/mL LAB CHEMISTRY METHOD 07/26/2024 6:41 PM EDT [facility] Comment: FSH REFERENCE RANGES (MIU/ML) FEMALES NORMALLY MENSTRUATING: FOLLICULAR PHASE ??2.3 - 12.6 MIDCYCLE PEAK ? 5.2 - 17.5 LUTEAL PHASE ?1.7 - ??9.5 POSTMENOPAUSAL: ON HRT ?5.9 - ??72.8 UNTREATED ?12.7 - 132.2 Blood Venous blood specimen / Unknown Venipuncture / Unknown 07/26/2024 12:38 PM EDT 07/26/2024 12:38 PM EDT Pippa Dobbins [facility] BLOOD ORDERABLES Final Re sult Performing Organization Address City/[facility]/ZIP Co de Phone Number [facility] [address] [place] [address], * Rae urine culture tube (06/29/2024 12:49 AM EST) Only the most recent of2 resultswithin the time period is included. Extra Tube Hold for add-ons. 06/29/2024 3:08 AM EST [facility] Comment:Auto resulted. Urine Urine specimen obtained by clean catch procedure / Unknown Non-blood Collection / Unknown 06/29/2024 12:49 AM EST 06/29/2024 1:03 AM EST [facility] URINE ORDERABLES Final Resul t [facility] [address] [place] [address], [place] [phone] * (ABNORMAL) Urinalysis with reflex microscopic and culture (06/29/2024 12:47 AM EST) Only the most recent of2 resultswithin the time period is included. Specific [place] Urine 1.021 1.003 - 1.030 LAB URINALYSIS - AUTOMATED METHOD 06/29/2024 1:[address] [facility] pH, Urine 5.5 5.0 - 8.0 pH LAB URINALYSIS - AUTOMATED METHOD 06/29/2024 1:[address] [facility] Leukocytes, Urine Trace(A) Negative LAB URINALYSIS - AUTOMATED METHOD 06/29/2024 1:[address] [facility] Nitrite, Urine Negative Negative LAB URINALYSIS - AUTOMATED METHOD 06/29/2024 1:[address] [facility] Protein, Urine 30(A) <=Trace mg/dL LAB URINALYSIS - AUTOMATED METHOD 06/29/2024 1:[address] [facility] Glucose, Urine Negative Negative mg/dL LAB URINALYSIS - AUTOMATED METHOD 06/29/2024 1:[address] [facility] Ketones, Urine Negative Negative mg/dL LAB URINALYSIS - AUTOMATED METHOD 06/29/2024 1:[address] [facility] Urobilinogen, Urine 1.0 0.2 - 1.0 mg/dL LAB URINALYSIS - AUTOMATED METHOD 06/29/2024 1:[address] [facility] Bilirubin, Urine Negative Negative LAB URINALYSIS - AUTOMATED METHOD 06/29/2024 1:[address] [facility] Blood, Urine Large(A) Negative LAB URINALYSIS - AUTOMATED METHOD 06/29/2024 1:[address] [facility] RBC, Urine 1.1 0 - 4 /HPF LAB URINALYSIS - AUTOMATED METHOD 06/29/2024 1:[address] [facility] WBC, Urine 1.7 0 - 4 /HPF LAB URINALYSIS - AUTOMATED METHOD 06/29/2024 1:[address] [facility] Squamous Epithelial, Urine >100(H) 0 - 60 /LPF LAB URINALYSIS - AUTOMATED METHOD 06/29/2024 1:[address] [facility] Bacteria, Urine Negative Negative /HPF LAB URINALYSIS - AUTOMATED METHOD 06/29/2024 1:[address] [facility] Hyaline Casts, Urine 6.4(H) 0 - 3 /LPF LAB URINALYSIS - AUTOMATED METHOD 06/29/2024 1:[address] [facility] Urine Urine specimen obtained by clean catch procedure / Unknown Non-blood Collection / Unknown 06/29/2024 12:47 AM EST 06/29/2024 1:03 AM EST us [facility] URINE ORDERABLES Final Resul t [facility] [address] [place] [address], * (ABNORMAL) Culture urine (06/29/2024 12:47 AM EST) Only the most recent of2 resultswithin the time period is included. Culture, Urine 50,000-100,000 CFU/mL Streptococcus beta-hemolytic Group B(A) 06/30/2024 11:[address] [facility] Comment: Susceptibility testing is not routinely performed for Beta Streptococcus isolates since these organisms are predictably sensitive to Penicillin. If the Patient is not responding, is allergic to Penicillin, or further therapeutic information is requir ed, please consult an Infectious Disease Specialist. Urine Urine specimen obtained by clean catch procedure / Unknown Non-blood Collection / Unknown 06/29/2024 12:47 AM EST 06/29/2024 1:08 AM EST Narrative [facility] - 06/30/2024 11:33 AM EST Additional colony types present in insignificant amounts. us [facility] MICROBIOLOGY - GENERAL ORDER AZAR Final Result [facility] [address] [place] [address], * US Pelvis Non OB Complete (06/28/2024 11:44 PM EST) Anatomical Region Laterality Modality Body, Pelvis Ultrasound 06/29/2024 12:5 2 AM EST Impressions 06/29/2024 12:52 AM EST 1. Questionable fundal fibroid 2.1 cm. 2. Unremarkable ovaries without torsion. This document has been electronically signed by: James Phillips MD on 06/29/2024 00:52:14 Narrative 06/29/2024 12:52 AM EST INDICATION: left suprapubic pain, vag bleeding US pelvis transabdominal and transvaginal with Doppler Comparison: US - US PEL NON OB COMPLETE W TRANSVAGINAL - 05/19/24 00:07 EST Findings: Transabdominal scanning performed for overall anatomy. Transvaginal scanning performed for additional detail. Anteverted uterus is 10.8 cm length. There may be a poorly defined anterior fundal fibroid measuring 2.1 cm. Endometrium 5 mm thickness. Small nabothian cysts. Right ovary 2.6 x 1.8 x 1.7 cm. Left ovary 2.4 x 1.6 x 1.8 cm. Normal color Doppler with arterial/venous spectral tracing of both ovaries. Physiologic pelvic free fluid. Procedure Note James Phillips MD - 06/29/2024 INDICATION: left suprapubic pain, vag bleeding US pelvis transabdominal and transvaginal with Doppler Comparison: US - US PEL NON OB COMPLETE W TRANSVAGINAL - 05/19/24 00:07EST Findings: Transabdominal scanning performed for overall anatomy. Transvaginal scanning performed for additional detail. Anteverted uterus is 10.8 cm length. There may be a poorly defined anterior fundal fibroid measuring 2.1 cm. Endometrium 5 mm thickness. Small nabothian cysts. Right ovary 2.6 x 1.8 x 1.7 cm. Left ovary 2.4 x 1.6 x 1.8 cm. Normal color Doppler with arterial/venous spectral tracing of both ovaries. Physiologic pelvic free fluid. IMPRESSION: 1. Questionable fundal fibroid 2.1 cm. 2. Unremarkable ovaries without torsion. This document has been electronically signed by: James Edouard MD on 06/29/2024 00:52:14 us [facility] US PROCEDURES Final Result * CBC auto differential (06/28/2024 10:11 PM EST) Only the most recent of2 resultswithin the time period is included. WBC 6.1 4.8 - 10.8 K/mcL LAB HEMETOLOGY METHOD 06/28/2024 10:[address] [facility] RBC 4.00 3.80 - 4.80 M/mcL LAB HEMETOLOGY METHOD 06/28/2024 10:[address] [facility] Hemoglobin 12.0 11.5 - 16.0 g/dL LAB HEMETOLOGY METHOD 06/28/2024 10:[address] [facility] Hematocrit 36.7 35.0 - 47.0 % LAB HEMETOLOGY METHOD 06/28/2024 10:[address] [facility] MCV 92.7 79.0 - 98.0 FL LAB HEMETOLOGY METHOD 06/28/2024 10:[address] [facility] MCH 30.3 27.0 - 32.0 pcg LAB HEMETOLOGY METHOD 06/28/2024 10:[address] [facility] MCHC 32.7 32.0 - 37.0 g/dL LAB HEMETOLOGY METHOD 06/28/2024 10:[address] [facility] RDW 12.3 11.0 - 15.0 % LAB HEMETOLOGY METHOD 06/28/2024 10:[address] [facility] Platelets 246 130 - 400 K/mcL LAB HEMETOLOGY METHOD 06/28/2024 10:[address] [facility] MPV 10.6 7.0 - 11.0 FL LAB HEMETOLOGY METHOD 06/28/2024 10:[address] [facility] NRBC 0.0 <1.0 % LAB HEMETOLOGY METHOD 06/28/2024 10:[address] [facility] NRBC Absolute 0.00 <0.10 K/mcL LAB HEMETOLOGY METHOD 06/28/2024 10:[address] [facility] Neutrophils Relative 64.2 % LAB HEMETOLOGY METHOD 06/28/2024 10:[address] [facility] Lymphocytes Relative 27.6 % LAB HEMETOLOGY METHOD 06/28/2024 10:[address] [facility] Monocytes Relative 5.6 % LAB HEMETOLOGY METHOD 06/28/2024 10:[address] [facility] Eosinophils Relative 1.6 % LAB HEMETOLOGY METHOD 06/28/2024 10:[address] [facility] Basophils Relative 0.8 % LAB HEMETOLOGY METHOD 06/28/2024 10:[address] [facility] Immature Granulocytes Relative 0.2 % LAB HEMETOLOGY METHOD 06/28/2024 10:[address] [facility] Neutrophils Absolute 3.90 1.50 - 7.00 K/mcL LAB HEMETOLOGY METHOD 06/28/2024 10:[address] [facility] Lymphocytes Absolute 1.68 1.00 - 5.00 K/mcL LAB HEMETOLOGY METHOD 06/28/2024 10:[address] [facility] Monocytes Absolute 0.34 0.20 - 1.00 K/mcL LAB HEMETOLOGY METHOD 06/28/2024 10:28 PM EST [facility] Eosinophils Absolute 0.10 0.00 - 0.50 K[facility] LAB HEMETOLOGY METHOD 06/28/2024 10:28 PM EST [facility] Basophils Absolute 0.05 0.00 - 0.20 K/[facility] HEMETOLOGY METHOD 06/28/2024 10:28 PM EST [facility] Immature Granulocytes Absolute 0.01 0.00 - 0.03 K[facility] HEMETOLOGY METHOD 06/28/2024 10:28 PM EST [facility] Blood Venous blood specimen / Unknown Venipuncture / Unknown 06/28/2024 10:11 PM EST 06/28/2024 10:24 PM EST [facility] BLOOD ORDERABLES Final Resul t [facility] [address] [place] [address], [place] [phone] * hCG, serum, qualitative (06/28/2024 10:11 PM EST) Pathologist [facility] hCG Qual Negative Negative 06/28/2024 10:40 PM EST [facility] Blood Venous blood specimen / Unknown Venipuncture / Unknown 06/28/2024 10:11 PM EST 06/28/2024 10:23 PM EST [facility] [place] BLOOD ORDERABLES Final Resul t [facility] [address] [place] [address], [place] [phone] * Basic metabolic panel (06/28/2024 10:11 PM EST) Pathologist [facility] Sodium 140 133 - 145 mmol/L LAB CHEMISTRY METHOD 06/28/2024 10:55 PM EST [facility] Potassium 3.8 3.5 - 5.5 mmol/L LAB CHEMISTRY METHOD 06/28/2024 10:[address] [facility] Chloride 110 96 - 110 mmol/L LAB CHEMISTRY METHOD 06/28/2024 10:[address] [facility] CO2 26 21 - 32 mmol/L LAB CHEMISTRY METHOD 06/28/2024 10:[address] [facility] Anion Gap 4 3 - 11 LAB CHEMISTRY METHOD 06/28/2024 10:[address] [facility] Glucose 94 70 - 100 mg/dL LAB CHEMISTRY METHOD 06/28/2024 10:[address] [facility] BUN 9 5 - 25 mg/dL LAB CHEMISTRY METHOD 06/28/2024 10:[address] [facility] Creatinine 0.63 0.50 - 1.10 mg/dL LAB CHEMISTRY METHOD 06/28/2024 10:[address] [facility] eGFR 110 >=60 mL/min/1. 73m2 LAB CHEMISTRY METHOD 06/28/2024 10:[address] [facility] Comment:Calculation based on the??Chronic Kidney Disease Epidemiology Collaboration (CKD-EPI) equation refit??without adjustment for race. BUN/Creatinine Ratio 14.3 LAB CHEMISTRY METHOD 06/28/2024 10:[address] [facility] Calcium 8.9 8.5 - 10.5 mg/dL LAB CHEMISTRY METHOD 06/28/2024 10:[address] [facility] Blood Venous blood specimen / Unknown Venipuncture / Unknown 06/28/2024 10:11 PM EST 06/28/2024 10:23 PM EST us [facility] BLOOD ORDERABLES Final Resul t [facility] [address] [place] [address], * POC , urine manually resulted (06/28/2024 7:22 PM EST) Only the most recent of2 resultswithin the time period is included. HCG, Ur POC Negative Negative POC hCG Int QC Pass? Yes Yes Urine Urine specimen obtained by clean catch procedure / Unknown 06/28/2024 7:22 PM EST Jus Bright MD POINT OF CARE TEST ENTER/ EDIT ORDERABLES Final Result * CT Abdomen Pelvis w Contrast (05/19/2024 1:49 AM EST) Anatomical Region Laterality Modality Body Computed Tomogra phy 05/19/2024 2:03 AM EST Impressions 05/19/2024 2:03 AM EST Suspect ruptured right corpus luteum cyst, with trace free pelvic fluid. This document has been electronically signed by: Dayron King MD on 05/19/2024 02:03:58 Narrative 05/19/2024 2:[address] abdomen and pelvis with contrast Comparison: None Findings: Bilateral calcified granulomas. Mild cardiomegaly. Hepatomegaly with steatosis. Scattered subcentimeter low-density lesions throughout the liver, likely cysts or hemangiomas, too small to characterize. No bowel obstruction, pneumoperitoneum, or pneumatosis. Left pelvic varices. Heterogeneous anteverted uterus. Right corpus luteum cyst. Scattered colonic diverticulosis without diverticulitis. Normal appendix Trace free pelvic fluid. No acute fracture. Procedure Note Dayron King MD - 05/19/2024 CT abdomen and pelvis with contrast Comparison: None Findings: Bilateral calcified granulomas. Mild cardiomegaly. Hepatomegaly with steatosis. Scattered subcentimeter low-density lesions throughout the liver, likely cysts or hemangiomas, too small to characterize. No bowel obstruction, pneumoperitoneum, or pneumatosis. Left pelvic varices. Heterogeneous anteverted uterus. Right corpus luteum cyst. Scattered colonic diverticulosis without diverticulitis. Normal appendix Trace free pelvic fluid. No acute fracture. IMPRESSION: Suspect ruptured right corpus luteum cyst, with trace free pelvic fluid. This document has been electronically signed by: Dayron King MD on 05/19/2024 02:03:[address] PROCEDURES Final Result * US Pelvis Non OB Complete w Transvaginal (05/19/2024 12:59 AM EST) Anatomical Region Laterality Modality Body, Pelvis Ultrasound 05/19/2024 1:21 AM EST Impressions 05/19/2024 1:21 AM EST No evidence of ovarian torsion. Uterine fibroid. Trace free pelvic fluid, may be physiologic. This document has been electronically signed by: Dayron King MD on 05/19/2024 01:21:51 Narrative 05/19/2024 1:21 AM EST US pelvis transabdominal and transvaginal with Doppler Comparison: None Findings: Transabdominal scanning performed for overall anatomy. Transvaginal scanning performed for additional detail. Anteverted uterus is 11.2 cm length. Fibroid measuring 4.4 x 3.6 x 3.7 cm. No endometrial lesion, 9 mm thickness. Right ovary 2.9 x 2.1 x 2.4 cm. Left ovary 2 x 1 x 1.6 cm. Normal color Doppler with arterial/venous spectral tracing of both ovaries. Trace free fluid, may be physiologic. Procedure Note Dayron King MD - 05/19/2024 US pelvis transabdominal and transvaginal with Doppler Comparison: None Findings: Transabdominal scanning performed for overall anatomy. Transvaginal scanning performed for additional detail. Anteverted uterus is 11.2 cm length. Fibroid measuring 4.4 x 3.6 x 3.7 cm. No endometrial lesion, 9 mm thickness. Right ovary 2.9 x 2.1 x 2.4 cm. Left ovary 2 x 1 x 1.6 cm. Normal color Doppler with arterial/venous spectral tracing of both ovaries. Trace free fluid, may be physiologic. IMPRESSION: No evidence of ovarian torsion. Uterine fibroid. Trace free pelvic fluid, may be physiologic. This document has been electronically signed by: Dayron King MD on 05/19/2024 01:21:51 [facility] [place] [facility] US PROCEDURES Final Result * Trichomonas vaginalis antigen (05/18/2024 11:43 PM EST) Trichomonas vaginalis Negative Negative 05/19/2024 12:[address] [facility] Swab Vaginal structure / Unknown Non-blood Collection / Unknown 05/18/2024 11:43 PM EST 05/18/2024 11:49 PM EST [facility] [place] MICROBIOLOGY - GENERAL ORDE RABSTAS Final Result [facility] [address] [place] [address], [place] [phone] * Chlamydia trachomatis and Neisseria gonorrhoeae molecular study (05/18/2024 11:43 PM EST) Neisseria gonorrhoeae PCR Negative Negative LAB MOLECULAR DIAGNOSTICS METHOD 05/19/2024 8:[address] [facility] Chlamydia trachomatis PCR Negative Negative LAB MOLECULAR DIAGNOSTICS METHOD 05/19/2024 8:[address] [facility] Swab Vaginal structure / Unknown Non-blood Collection / Unknown 05/18/2024 11:43 PM EST 05/18/2024 11:49 PM EST [facility] [place] MICROBIOLOGY - GENERAL ORDE RABSTAS Final Result [facility] [address] [place] [address], [place] [phone] * Wet prep, genital (05/18/2024 11:43 PM EST) Clue Cells, Wet Prep Negative Negative 05/19/2024 12:[address] [facility] Yeast, Wet Prep Negative Negative 05/19/2024 12:[address] [facility] Trichomonas, Wet Prep Indeterminate Negative 05/19/2024 12:[address] [facility] Comment:Refer to Trichomonas antigen. Swab Vaginal structure / Unknown Non-blood Collection / Unknown 05/18/2024 11:43 PM EST 05/18/2024 11:49 PM EST us [facility] [place] MICROBIOLOGY - GENERAL TAMI BRAVO Final Result [facility] [address] [place] [address], * (ABNORMAL) Comprehensive metabolic panel (05/18/2024 9:28 PM EST) Sodium 137 133 - 145 mmol/L LAB CHEMISTRY METHOD 05/18/2024 10:[address] [facility] Potassium 3.7 3.5 - 5.5 mmol/L LAB CHEMISTRY METHOD 05/18/2024 10:[address] [facility] Chloride 107 96 - 110 mmol/L LAB CHEMISTRY METHOD 05/18/2024 10:[address] [facility] CO2 28 21 - 32 mmol/L LAB CHEMISTRY METHOD 05/18/2024 10:[address] [facility] Anion Gap 2(L) 3 - 11 LAB CHEMISTRY METHOD 05/18/2024 10:[address] [facility] Glucose 95 70 - 100 mg/dL LAB CHEMISTRY METHOD 05/18/2024 10:[address] [facility] BUN 11 5 - 25 mg/dL LAB CHEMISTRY METHOD 05/18/2024 10:[address] [facility] Creatinine 0.93 0.50 - 1.10 mg/dL LAB CHEMISTRY METHOD 05/18/2024 10:[address] [facility] eGFR 76 >=60 mL/min/1. 73m2 LAB CHEMISTRY METHOD 05/18/2024 10:[address] [facility] Comment:Calculation based on the??Chronic Kidney Disease Epidemiology Collaboration (CKD-EPI) equation refit??without adjustment for race. BUN/Creatinine Ratio 11.8 LAB CHEMISTRY METHOD 05/18/2024 10:[address] [facility] Calcium 8.7 8.5 - 10.5 mg/dL LAB CHEMISTRY METHOD 05/18/2024 10:[address] [facility] AST (SGOT) 14 10 - 42 unit/L LAB CHEMISTRY METHOD 05/18/2024 10:[address] [facility] ALT (SGPT) 21 10 - 60 unit/L LAB CHEMISTRY METHOD 05/18/2024 10:[address] [facility] Alkaline Phosphatase 40(L) 42 - 121 unit/L LAB CHEMISTRY METHOD 05/18/2024 10:[address] [facility] Total Protein 7.0 6.0 - 8.0 g/dL LAB CHEMISTRY METHOD 05/18/2024 10:[address] [facility] Albumin 3.8 3.2 - 5.0 g/dL LAB CHEMISTRY METHOD 05/18/2024 10:[address] [facility] Total Bilirubin 0.3 0.0 - 1.4 mg/dL LAB CHEMISTRY METHOD 05/18/2024 10:[address] [facility] Blood Venous blood specimen / Unknown Venipuncture / Unknown 05/18/2024 9:28 PM EST 05/18/2024 9:39 PM EST us Michel Balderas DO LAB BLOOD ORDERABLES Final Res ult [facility] [address] [place] [address], [place] [phone] * Cervical Cancer Screening: HPV (06/01/2019) Cervical Cancer Screening: HPV Negativie abstracted Historical Provider HEALTH MAINTENANCE Final Result * HIV Screening (06/01/2019) HIV Screening Abstracted Historical Provider HEALTH MAINTENANCE Final Result * Hepatitis C Screening (06/01/2019) Hepatitis C Screening Abstracted Historical Provider HEALTH MAINTENANCE Final Result from Last 3 Months or Most Recently Relevant to Health Maintenance Insurance MEDICAID [facility] Care Teams [employer] Relationship Specialty Start Date End Date Jorge Archer NP [address] [place], [place] PCP - General Nurse Practitioner 05/18/24
--- OUTSIDE RECORDS SUMMARY | 2024-08-05 12:24 | XMS_ITS | Clinical Summary ---
Author Organization [employer] Address [address] [facility] [address] [place] [address] Care Team Providers Care Data Analytics Developer Name Role Phone Bea Becker WANDA Primary Care Provider [phone] Allergies Active Allergy Reactions Criticality Noted Date Comments Latex 06/06/2022 Shellfish Allergy Hives,Anaphylaxis High 06/06/2022 Medications * This document contains information received from the source organization and may not represent a complete record from that organization. nicotine polacrilex (Commit) 2 MG lozengeIndicati ons:Tobacco dependence Dissolve 1 lozenge (2 mg) in the mouth if needed for smoking cessation. 100 lozenge 022 Active aspirin-acetami nophen-caffeine (Excedrin Migraine) 250-250-65 MG tabletIndicatio ns:Acute non intractable tension-type headache Use one tablet every 8 hours as needed for headache, do not use more than 5 days in a row 30 tablet 023 Active albuterol (2.5 MG/3ML) 0.083% nebulizer solutionIndicat ions:Asthma, unspecified asthma severity, unspecified whether complicated, unspecified whether persistent Take 3 mL (2.5 mg) by nebulization every 4 (four) hours if needed for wheezing. 75 mL 2 023 Active Spacer/Aero-Hol ding Chambers deviceIndicatio ns:Mild intermittent asthma without complication 1 each every 4 (four) hours if needed (wheezing, cough). 1 each 023 Active SUMAtriptan (Imitrex) 25 MG tabletIndicatio ns:Chronic migraine without aura without status migrainosus, not intractable Take 1 tablet (25 mg) by mouth 1 (one) time if needed for migraine for up to 1 dose. May repeat dose once in 2 hours if no relief. Do not exceed 2 doses in 24 hours. 9 tablet 023 Active albuterol 108 (90 Base) MCG/ACT inhalerIndicati ons:Asthma, unspecified asthma severity, unspecified whether complicated, unspecified whether persistent Inhale 2 puffs every 6 (six) hours if needed for wheezing or shortness of breath. 18 g 3 025 2025 Active lisinopril 10 MG tabletIndicatio ns:Primary hypertension Take 1 tablet (10 mg) by mouth Once per day. 90 tablet 1 025 2024 Active loratadine (Claritin) 10 MG tabletIndicatio ns:Seasonal allergies TAKE 1 TABLET (10 MG) BY MOUTH ONCE PER DAY. 90 tablet 025 2024 Active lisinopril 10 MG tabletIndicatio ns:Primary hypertension Take 1 tablet (10 mg) by mouth in the morning. 90 tablet 1 023 2024 Discontinued(R eorder (will not trigger notification to Pharmacy)) cetirizine (ZyrTEC) 10 MG tabletIndicatio ns:Seasonal allergic rhinitis, unspecified trigger Take 1 tablet (10 mg) by mouth in the morning. 90 tablet 2 023 2024 Discontinued(M ed list cleanup (will not trigger notification to Pharmacy)) albuterol 108 (90 Base) MCG/ACT inhalerIndicati ons:Asthma, unspecified asthma severity, unspecified whether complicated, unspecified whether persistent Inhale 2 puffs every 6 (six) hours if needed for wheezing or shortness of breath. 18 g 3 023 2024 Discontinued(R eorder (will not trigger notification to Pharmacy)) loratadine (Claritin) 10 MG tabletIndicatio ns:Seasonal allergies Take 1 tablet (10 mg) by mouth Once per day. 30 tablet 1 025 2024 Discontinued ibuprofen 600 MG tablet Take 1 tablet (600 mg) by mouth every 6 (six) hours if needed for mild pain for up to 10 days. 40 tablet 025 2024 Active Problems Problem Noted Date Diagnosed Date Moderate anxiety 07/29/2024 Burnout of caregiver 07/29/2024 Uterine leiomyoma 07/17/2024 Assessment & Plan (07/17/2024 6:04 AM EDT): -2.1 cm fundal fibroid noted on abd US in ED -denies symptoms presently -patient is following with Dr. Pham Irregular menstrual bleeding 06/17/2023 Assessment & Plan (06/17/2023 5:05 PM EST): -patient requesting endocrine referral -not interested in work-up for irregular menses -patient's claims are suggestive of some complicated/unresolved grieving -referral placed as patient requested Health care maintenance 08/18/2022 Overview (08/18/2022): Immunizations: up to date HIV: nonreactive 01/30/21 Hep C: nonreactive 01/30/21 Hepatitis B: Discuss at next visit 2022 guidelines CDC recommends screen all adults aged 18 years and older at least once in their lifetime using a triple panel test. patients screen every Pap Smear: 03/11/21 HPV neg, ASCUS Repeat in 3 years, 03/2024 Mammogram: 12/22/2017 BI-RADS 2: Benign. Needs repeat Colonoscopy: Per ACS age 45-75 average risk regular screening with annual fecal test, stool DNA test every 3 years, or visual exam (colonoscopy every [address] colonography every 5 years). Continue screening >age 75 if in good health and life expectancy > 10 years. Eye: Will discuss next visit Dental: Will discuss next visit Bilateral carpal tunnel syndrome 08/14/2022 Trigger ring finger of right hand 08/14/2022 Class 1 obesity 05/26/2022 Hyperprolactinemia 05/26/2022 Primary hypertension 05/26/2022 Overview (05/26/2022): Care managed by Dr. Blake Last appt 04/23/22 Stable, Followup 6 months Assessment & Plan (07/17/2024 6:10 AM EDT): -BP elevated in clinic; she is asymptomatic; has not been taking BP medications -refill provided today -ED precautions reviewed -encouraged low salt/ low fat diet and stress management -advised scheduling follow-up for routine care Hyperlipidemia 05/14/2021 Overview (05/26/2022): Care managed by Dr. Blake Last appt 04/23/22 Stable, continue statin Followup 6 months Abnormal uterine bleeding 04/11/2021 Overview (11/17/2022): 10/13/22: Endometrial Biopsy Benign abnormal secretory endometrium with poorly developed secretory glands and dense stroma; no atypia or carcinoma. Comment: Some fragments may be derived from benign polyps. recommended hysteroscopy D C possible polypectomy/myomectomy 11/14/22: Hysteroscopy performed. Normal endometrial and endocervical cavity, no evidence of pathology Atypical squamous cells of u ndetermined significance (ASCUS) on Papanicolaou smear of cervix 04/11/2021 Asthma 11/03/2012 Assessment & Plan (07/17/2024 6:08 AM EDT): -patient with acute URI symptoms; lung sounds clear bilaterally -albuterol refilled -return to clinic if no improvement in symptoms Bipolar disorder 11/03/2012 Migraine 11/03/2012 Anemia 12/01/2011 Encounters * This document contains information received from the source organization and may not represent a complete record from that organization. Date Type Department Care Team Description 08/05/2024 Orders Only [facility] External Provider, [facility] 07/15/2024 1:30 PM EDT Office Visit [facility] [address] [place] [address] Bea Becker NP Uterine leiomyoma, unspecified location (Primary Dx); Asthma, unspecified asthma severity, unspecified whether complicated, unspecified whether persistent; Primary hypertension; Nasal congestion; Seasonal allergies; Anxiety and depression 07/15/2024 Refill [facility] [address] [place] [address] Bea Becker NP Seasonal allergies 07/15/2024 Travel 07/15/2024 Population Health Risk Score [facility] Department [address] [facility] [address] [place] [address] Provider, Population Health Generic 07/12/2024 Telephone [facility] [address] [place] [address] Clovis Banks [place] chartprep 07/11/2024 Telephone [facility] [address] [place] [address] Clovis Banks [place] rescheduled appointment 07/01/2024 Telephone [facility] [address] [place] [address] Bea Becker NP 05/26/2024 Telephone [facility] [address], [place] [phone] Christin Emerson, ERASMO Error (VOID this visit) 05/23/2024 Orders Only GENERIC EXTERNAL DATA DEPARTMENT Provider, Generic External Data from Last 3 Months Immunizations Name Administration Dates Next Due Hep B, adult 11/05/2010,06/26/2010,02/22/2010 Influenza injectable quadriv alent IIV4 with preservative 01/15/2018 Influenza injectable quadriv alent preservative free 02/26/2021,02/22/2020,02/28/2017 Influenza, IIV3, injectable 01/28/2011 Influenza, seasonal, injecta ble, preservative free 08/04/2014 TD (adult), 2 Lf tetanus tox oid, preservative free, adsorbed 03/12/2005 Tdap 01/15/2018, 6,07/14/2014,2013 Social History Tobacco Use Types Packs/Day Years Used Date Smoking Tobacco: Every Day Cigarettes Smokeless Tobacco: Never Tobacco Cessation:Ready to Q uit: Not Asked; Counseling Given: Not Answered Depression Answer Date Recorded Patient Health Questionnaire-9 Score 8 07/29/2024 Patient Health Questionnaire-9 Score 8 07/29/2024 Last PHQ-9: Questionnaire Data Not on file 0 07/29/2024 Housing Stability Answer Date Recorded What is your housing situation today? I have krzysztof anderson 07/15/[address] you li ve. Do you have problems with any of the following? Not on file 07/15/2024 Food Insecurity Answer Date Recorded Within the past 12 months, y ou worried that your food would run out before you got money to buy more: Sometimes True 2024 Within the past 12 months,th e food you bought just didn't last and you didn't have enough money to get more: Sometimes True 07/15/2024 Transportation Answer Date Recorded In the past 12 months, has l ack of transportation kept you from medical appts, meetings, work or from getting things needed for daily living? No 07/15/2024 Utilities Answer Date Recorded In the past 12 months, has t he electric, gas, oil or water company threatened to shut off services in your home? I am not sure 07/15/2024 Depression Answer Date Recorded Patient Health Questionnaire-2 Score 1 07/29/2024 Internet Access Answer Date Recorded Internet Access Q1 Yes 07/15/2024 Internet Access Q2 Not on file 07/15/2024 Comments No Sex and Gender Information Value Date Recorded Sex Assigned at Female 03/03/2022 10:18 AM EDT Legal Sex Female 10:18 AM EDT Gender Identity Female 03/03/2022 10:18 AM EDT Sexual Orientation Don't know 03/03/2022 10 :18 AM EDT Last Filed Vital Signs Vital Sign Reading Time Taken Comments Blood Pressure 138/92 07/15/2024 2:34 PM EDT Pulse 60 07/15/2024 1:35 PM EDT Temperature 36.4 ??C (97.6 ??F) 07/15/2024 1:35 PM ED T Respiratory Rate 15 07/15/2024 1:35 PM EDT Oxygen Saturation 99% 07/15/2024 1:35 PM EDT Inhaled Oxygen Concentration - - Weight 70.3 kg (155 lb) 07/15/2024 1:35 PM EDT Height 162.6 cm (5' 4 ) 07/15/2024 1:35 PM EDT Body Mass Index 26.61 07/15/2024 1:35 PM EDT Plan of Treatment Upcoming Encounters Date Type Department Care Team (Late st Contact Info) Description 09/12/2024 10:00 AM EDT Office Visit [facility] [address] [place] [phone] Bea Becker NP [address] [place] [address] Health Maintenance Due Date Last Done Comments CT Colonography 1975 Colonoscopy 1975 Colorectal Cancer Screening 1975 FIT DNA/Cologuard 1975 FIT 1975 FOBT 1975 SDOH Screening 1975 Sigmoidoscopy 1975 Family Planning (PISQ) 10/12/1991 Pneumococcal Vaccine: Pediatrics (0 to 5 Years) and At-Risk Patients (6 to 49) Years) (1 of 2 - PCV) 10/12/1995 Mammogram 11/28/2019 11/27/2017 COVID-19 Vaccine (1 - 2023- season) 2024 Influenza Vaccine (#1) 2024 , 02/22/2020, 01/15/2018, Additional history exists Alcohol/Substance Use Screening 07/15/2025 07/15/2024 Tobacco Screening 07/17/2025 07/17/2024 Depression Screening 07/29/2025 07/29/2024, 07/30/19 25 Pap Smear 09/09/2025 09/09/2022, 05/01/2023, 03/11/2021 Lipid Panel 05/13/2026 05/13/2021 Zoster Vaccines (1 of 2) 2026 Cervical Cancer Screening 09/10/2027 HPV/Cotest 09/10/2027 09/09/2022, 11/0 12/2020, 03/11/2021, Additional history exists DTaP/Tdap/Td Vaccines (5 - Td or Tdap) 01/16/2028 01/15/2018, 06/27/2015, 07/14/2014, Additional history exists RSV Patients and Patients Aged 60 years or older (1 - 1-dose 75+ series) 10/12/2051 Hepatitis B Vaccines Completed 11/05/2010, 06/26/2010, 02/22/2010 HIV Screening Completed 09/09/2022, 01/30/2021 Hepatitis C Screening Completed 09/09/2022, 021 HIB Vaccines Aged Out No longer eligi [...] patient's age to complete this topic Meningococcal Vaccine Aged Out No radha william eligible based on patient's age to complete this topic RSV under 20 months Aged Out No longe r eligible based on patient's age to complete this topic Rotavirus Vaccines Aged Out No longer eligible based on patient's age to complete this topic Procedures Procedure Name Priority Date/Time Associated Diagnosis Comments US PELVIS TRANSVAGINAL Routine 08/05/2024 11:14 AM EDT POCT INFLUENZA B (ID NOW RAPID MOLECULAR) Routine 07/15/2024 2:42 PM EDT Nasal congestion POCT INFLUENZA A (ID NOW RAPID MOLECULAR) Routine 07/15/2024 2:41 PM EDT Nasal congestion POCT RAPID COVID ANTIGEN Routine 07/15/2024 2:37 PM EDT Nasal congestion BACTERIAL VAGINOSIS PANEL Routine 05/23/2024 10:24 AM EST CHLAMYDIA/N. GONORRHOEAE RNA, TMA, UROGENITAL Routine 05/23/2024 10:24 AM EST HEPATITIS C ANTIBODY Routine 09/09/2022 11:14 AM EDT HIV ANTIBODY/ANTIGEN ([place] DPH) Routine 09/09/2022 11:14 AM EDT HPV MRNA E6/E7 REFLEX TO HPV 16, 18/45 Routine 09/09/2022 10:55 AM EDT HM PAP/HPV Routine 09/09/2022 LIPID PANEL, STANDARD Routine 05/13/2021 1:42 PM EST BI MAMMOGRAM SCREENING BILATERAL Routine 11/27/2017 5:21 PM EDT from Last 3 Months or Most Recently Relevant to Health Maintenance Results * US Pelvis Transvaginal (08/05/2024 11:14 AM EDT) Anatomical Region Laterality Modality Pelvis Ultrasound 08/05/2024 11:1 4 AM EDT Narrative 08/05/2024 12:00 PM EDT ? [facility] ?[address] ?[place] [address] ? Ultrasound Report ? Signed ? Patient: Granda,Tegan ?MR#: [id number] ? : 1975 ?Acct:[id number] ? Age/Sex: 48 / F ?ADM Date: 08/05/24 ? Loc: HO.US ? Attending Dr: Rick Pham MD ? Ordering Physician: Rick Pham MD ?? Date of Service: 08/05/24 ?? Procedure(s): US pelvic and transvaginal ?? Accession Number(s): [id number] ? cc: Shyla Diaz; Rick Pham MD ? EXAMINATION: ??US PELVIS TRANSABDOMINAL AND TRANSVAGINAL ? HISTORY: N94.6 - Dysmenorrhea, unspecified ? COMPARISON: Comparison is made with the prior examination dated ?? 05/29/2022. ? TECHNIQUE: ? Transabdominal and endovaginal real-time 2D hebert-scale ultrasound was ?? performed. ? FINDINGS: ? Uterus: ??The uterus is mildly enlarged, measuring 11.6 x 3.8 x 5.8 cm. ? Myometrium has a heterogeneous echotexture. ??Again seen is an 8 x 6 x 8 ?? mm fibroid on the right. ? Endometrium: ??The endometrial stripe difficult to visualize, but ?? appears to measure 5 mm in thickness. ? Right ovary: ??The right ovary measures 1.3 x 2.0 x 1.2 cm. ??The right ?? ovary is normal in size and echotexture. ? Left ovary: ?? The left ovary measures 0.8 x 1.7 x 1.3 cm. ??The left ?? ovary is normal in size and echotexture. ? Pelvic fluid: none. ? US/US pelvic and transvaginal ?? IMPRESSION: ?? 8 mm uterine fibroid. Heterogeneous appearing uterus. The endometrial ?? stripe is not well visualized. ? Electronically signed by: ??Mauricio Garcia MD ??08/05/2024 11:57 AM EDT ? Dictated By: ?Mauricio Garcia MD ? Signed By: ?<Electronically signed by Mauricio Garcia MD in OV> ?08/05/241156 ? DD/ 1114 ? TD/TT: 08/05/24 1127 ? Supervisory Civil Engineer: ? Procedure Note Dondannyter, Image - 08/05/2024 [place] [address] Ultrasound Report Signed Patient: Meli Granda#: [id number] : 1975Acct:[id number] Age/Sex: 48 / FADM Date: 08/05/24 Loc: HO.US Attending Dr: Rick Pham MD Ordering Physician: Rick Pham MD Date of Service: 08/05/24 Procedure(s): US pelvic and transvaginal Accession Number(s): [id number] cc: Shyla Diaz ICE SELLER; Rick Pham MD EXAMINATION: US PELVIS TRANSABDOMINAL AND TRANSVAGINAL HISTORY: N94.6 - Dysmenorrhea, unspecified COMPARISON: Comparison is made with the prior examination dated 05/29/2022. TECHNIQUE: Transabdominal and endovaginal real-time 2D hebert-scale ultrasound was performed. FINDINGS: Uterus: The uterus is mildly enlarged, measuring 11.6 x 3.8 x 5.8 cm. Myometrium has a heterogeneous echotexture. Again seen is an 8 x 6 x 8 mm fibroid on the right. Endometrium: The endometrial stripe difficult to visualize, but appears to measure 5 mm in thickness. Right ovary: The right ovary measures 1.3 x 2.0 x 1.2 cm. The right ovary is normal in size and echotexture. Left ovary: The left ovary measures 0.8 x 1.7 x 1.3 cm. The left ovary is normal in size and echotexture. Pelvic fluid: none. US/US pelvic and transvaginal IMPRESSION: 8 mm uterine fibroid. Heterogeneous appearing uterus. The endometrial stripe is not well visualized. Electronically signed by: Mauricio Garcia MD 08/05/2024 11:57 AM EDT RP Dictated By: Mauricio Garcia MD Signed By: <Electronically signed by Mauricio Garcia MD in OV> 08/05/24 1157 DD/ 1114 TD/TT: 08/05/24 1127 Supervisory Civil Engineer: us [facility] External Provider IMG US PROCEDURES Final Result * POCT Rapid Influenza B WINSTON ID NOW (07/15/2024 2:42 PM EDT) Influenza B Negative Negative, Indeterminate [facility] QC Media Lot # [id number] [facility] Lot# Expiration Date [facility] Swab 07/15/2024 2:42 PM EDT Bea Lucym PRISON OFFICER POINT OF CARE TEST ENTER/EDIT O RDERABLES Final Result [facility] [address] [place] [phone] * POCT Rapid Influenza A WINSTON ID NOW (07/15/2024 2:41 PM EDT) Influenza A Negative Negative, Indeterminate [facility] QC Media Lot # [id number] [facility] Lot# Expiration Date [facility] Swab 07/15/2024 2:41 PM EDT [facility] PRISON OFFICER POINT OF CARE TEST ENTER/EDIT O RDERABLES Final Result Performing Organization Address [facility]/ZIP Co de Phone Number [facility] [address] [place] [phone] * POCT Rapid Covid-19 BinaxNOW (07/15/2024 2:37 PM EDT) Pathologist [facility] Rapid COVID Ag Negative QC Media Lot # [id number] Lot# Expiration Date [id number] Swab 07/15/2024 2:37 PM EDT [facility] PRISON OFFICER POINT OF CARE TEST ENTER/EDIT O RDERABLES Final Result * Bacterial Vaginosis (05/23/2024 10:24 AM EST) Pathologist [facility] TRICHOMONAS VAGINALIS DETECTION BY PCR NOT DETECTED Not Detect [facility] BACTERIAL VAGINOSIS DETECTION BY PCR NEGATIVE Negative [facility] Comment:The BV organism targ ets of the Xpert Xpress MVP test can becommensal in women; Xpert Xpress MVP positive results forbacterial vaginosis should be considered in conjunction withother clinical and patient information to determine thedisease status. Organisms that are not detected by the XpertXpress MVP test have also been reported to be associatedwith BV and aerobic vaginitis.The Xpert Xpress MVP test performance has not been evaluatedin patients under the age of 14. DASHA GROUP DETECTION BY PCR NOT DETECTED Not Detect [facility] Dasha glab krusei PCR NOT DETECTED Not Detect [facility] 05/23/2024 10:2 4 AM EST 05/24/2024 3:27 PM EST Generic External Data Provider LAB MICROBIOLOGY - GENERAL ORDERABLES Final Result Performing Organization Address City/[facility]/ZIP Co de Phone Number [facility] [address] [place] [phone] * Chlamydia/N. Gonorrhoeae RNA, TMA, Urogenitial (05/23/2024 10:24 AM EST) CT PCR NOT DETECTED Not Detect. [facility] Comment:A not detected test result does not exclude the possibilityof infection because test results can be affected byimproper specimen collection, concurrent antibiotic therapy,or the number of organisms in the specimen which may bebelow the sensitivity of the test. As with many diagnostictests, results from the Xpert CT/NG assay should beinterpreted in conjunction with other laboratory andclinical data available to the clinician.Xpert CT/NG performance has not been evaluated in patientsless than 14 years of age. The assay should not be used forthe evaluationof suspected sexual abuse or for other medico-legalindications. Additional testing is recommended in anycircumstance when false positive or false negative resultscould lead to adverse medical, social or psychologicalconsequences. NG PCR NOT DETECTED Not Detect. [facility] Comment:A not detected test result does not exclude the possibilityof infection because test results can be affected byimproper specimen collection, concurrent antibiotic therapy,or the number of organisms in the specimen which may bebelow the sensitivity of the test. As with many diagnostictests, results from the Xpert CT/NG assay should beinterpreted in conjunction with other laboratory andclinical data available to the clinician.Xpert CT/NG performance has not been evaluated in patientsless than 14 years of age. The assay should not be used forthe evaluationof suspected sexual abuse or for other medico-legalindications. Additional testing is recommended in anycircumstance when false positive or false negative resultscould lead to adverse medical, social or psychologicalconsequences. 05/23/2024 10:2 4 AM EST 05/24/2024 3:27 PM EST Narrative [facility] - 05/25/2024 3:22 AM EST Vaginal us Generic External Data Provider LAB MICROBIOLOGY - GENERAL ORDERABLES Final Result [facility] [address] [place] [phone] * Hepatitis C Ab (09/09/2022 11:14 AM EDT) Hepatitis C Antibody Nonreactive Nonreactive [facility] Comment:Antibodies to HCV no t detected; does not exclude early acuteHCV infection. 09/09/2022 11:1 4 AM EDT 09/09/2022 11:14 AM EDT [facility] External Provider LAB BLO OD ORDERABLES Final Result Performing Organization Address [facility] Co de Phone Number [facility] [address] [place] [phone] * HIV Ab/Ag ([facility]) (09/09/2022 11:14 AM EDT) HIV AB/AG Nonreactive Nonreactive [facility] Comment:HIV-1 p24 Ag and/or HIV-1/HIV-2 Ab not detected.A test result that is nonreactive does not exclude thepossibility of exposure to or infection with HIV-1 and/orHIV-2. Nonreactive results in this assay for individualswith prior exposure to HIV-1 and/or HIV-2 may be due toantigen and antibody levels that are below the limit ofdetection of this assay.The [employer] HIV Ag/Ab Combo assay result andsupplemental assay results should be interpreted inconjunction with the patient's clinical presentation,history and other laboratory results. If the results areinconsistent with clinical evidence, additional testing issuggested to confirm the result. 09/09/2022 11:1 4 AM EDT 09/09/2022 11:14 AM EDT [facility] External Provider LAB BLO OD ORDERABLES Final Result Performing Organization Address [facility] Co de Phone Number [facility] [address] [place] [phone] * HPV mRNA E6/E7 w/Reflex to HPV Genotypes 16, 18/45 (09/09/2022 10:55 AM EDT) [facility] HPV nRNA E6/E7 Not Detected Not Detected [facility] Comment:Methodology: Transcr iption-Mediated AmplificationThis assay detects E6/E7 viral messenger RNA (mRNA) from 14high-risk HPV types (16,18,31,33,35,39,45,51,52,56,58,59,66,68).Cervical sources are required for HPV testing.If a vaginal source from a patient who has had atotal hysterectomy with removal of cervix wassubmitted, please contact the testing laboratoryfor alternative testing options.For additional information, please refer [email or web address](This link if provided for information/educational purposes only.)THIS TEST WAS PERFORMED AT:[email or web address] [place] [phone] KENDALL MD HPV mRNA E6/E7 [facility] HPV 16 RNA [facility] HPV 18/45 RNA [facility] 09/09/2022 10:5 5 AM EDT 09/09/2022 12:15 PM EDT [facility] External Provider LAB CYT OLOGY ORDERABLES Final Result [facility] [address] [place] [address] [phone] * Pap Smear (09/09/2022) [facility] Pap smear NILM hpv negative Historical Provider HEALTH MAINTENANCE Final Result * (ABNORMAL) LIPID PANEL, STANDARD (05/13/2021 1:42 PM EST) [facility] Chol/HDLC Ratio 5.0(H) <5.0 (calc) [facility] Cholesterol, Total 207(H) <200 mg/dL [facility] HDL Cholesterol 41(L) > OR = 50 mg/dL [facility] LDL Cholesterol 141(H) mg/dL (calc) [facility] Comment: Reference range: <100 ?? Desirable range <100 mg/dL for primary prevention; ?? <70 mg/dL for patients with CHD or diabetic patients ?? with > or = 2 CHD risk factors. ?? LDL-C is now calculated using the Paloma ?? calculation, which is a validated novel method providing ?? better accuracy than the Friedewald equation in the ?? estimation of LDL-C. ?? Rajendra SILVER et al. GLO. 2013;310(19): 2215-4869 ?? (http://Science [employer] Sweat.Qt Software/faq/VJQ138) Non-HDL Cholesterol 166(H) <130 mg/dL (calc) [facility] Comment: For patients with diabetes plus 1 major ASCVD risk ?? factor, treating to a non-HDL-C goal of <100 mg/dL ?? (LDL-C of <70 mg/dL) is considered a therapeutic ?? option. Triglycerides 126 <150 mg/dL [facility] 05/13/2021 1:42 PM EST Aundrea Vazquez ICE SELLER LAB BLOOD ORDERABLES Final Res ult [facility] [address] * DIGITAL BILATERAL SCREEN 1 (11/27/2017 5:21 PM EDT) Anatomical Region Laterality Modality Breast Bilateral Mammography 11/27/2017 5:21 PM EDT Narrative 11/27/2017 5:23 PM EDT Refer to the Notes tab for result details Legacy Procedure: DIGITAL BILATERAL SCREEN 1 Procedure Note Provider, MD Hiram - 07/26/2022 Refer to the Notes tab for result details Legacy Procedure: DIGITAL BILATERAL SCREEN 1 Jorge Archer ICE SELLER IMG BI PROCEDURES Final Result from Last 3 Months or Most Recently Relevant to Health Maintenance Insurance [facility] C3 Care Teams Data Analytics Developer Relationship Specialty Start Date End Date Bea Becker NP [address] [place] [address] PCP - General Family Medicine 02/10/23
--- OUTSIDE RECORDS SUMMARY | 2024-08-05 12:24 | XMS_ITS | Encounter Summary ---
Author Organization [employer] Address [address] [place] [address] Care Team Providers Care Boil Off Machine Operator Cloth Name Role Phone Lucyromana Bea WANDA Primary Care Provider [phone] Encounter Details Date Type Department Care Team (Late st Contact Info) Description 08/05/2024 Orders Only [facility] External Provider, [facility] Social History Tobacco Use Types Packs/Day Years Used Date Smoking Tobacco: Every Day Cigarettes Smokeless Tobacco: Never Depression Answer Date Recorded Patient Health Questionnaire-9 [...] Don't know 03/03/2022 10 :18 AM EDT documented as of this encounter Plan of Treatment Upcoming Encounters Date Type Department Care Team (Late st Contact Info) Description 09/12/2024 10:00 AM EDT Office Visit [facility] [address] [place] [address] Bea Becker NP [address] [place] [address] documented as of this encounter Procedures Procedure Name Priority Date/Time Associated Diagnosis Comments US PELVIS TRANSVAGINAL Routine 08/05/2024 11:14 AM EDT documented in this encounter Results * US Pelvis Transvaginal (08/05/2024 11:14 AM EDT) Anatomical Region Laterality Modality Pelvis Ultrasound 08/05/2024 11:1 4 AM EDT Narrative 08/05/2024 12:00 PM EDT ? [facility] ?[address] ?[place] [address] ? Ultrasound Report ? Signed ? Patient: Granda,Tegan ?MR#: [id number] ? : 1975 ?Acct:[id number] ? Age/Sex: 48 / F ?ADM Date: //25 ? Loc: HO.US ? Attending Dr: Rick Pham MD ? Ordering Physician: Rick Pham MD ?? Date of Service: 08/05/24 ?? Procedure(s): US pelvic and transvaginal ?? Accession Number(s): [id number] ? cc: Shyla Diaz; Rick Pham MD [...] ??Mauricio Garcia MD ??08/05/2024 11:57 AM EDT ?? RP ? Dictated By: ?Mauricio Garcia MD ? Signed By: ?<Electronically signed by Mauricio Garcia MD in OV> ?08/05/24 1157 ? DD/ 1114 ? TD/TT: 08/05/24 1127 ? Cooker Sulfite: ? Procedure Note Akash Burgess - 08/05/[address] [address] Ultrasound Report Signed Patient: Meli Granda#: [id number] : 1975Acct:[id number] Age/Sex: 48 / FADM Date: 08/05/24 Loc: HO.US Attending Dr: Rick Pham MD Ordering Physician: Rick Pham MD Date of Service: 08/05/24 Procedure(s): US pelvic and transvaginal Accession Number(s): [id number] cc: Shyla DiazP; Rick Pham MD EXAMINATION: US PELVIS TRANSABDOMINAL [...] Mauricio Garcia MD 08/05/2024 11:57 AM EDT Dictated By: Mauricio Garcia MD Signed By: <Electronically signed by Mauricio Garcia MD in OV> 08/05/24 1157 DD/ 1114 TD/TT: 08/05/24 1127 Cooker Sulfite: [facility] External Provider IMG US PROCEDURES Final Result documented in this encounter Visit Diagnoses Not on filedocumented in this encounter Additional Health Concerns Assessment Noted Time PHQ-9 Depression Total Score: 8 07/30/19 25 2:36 PM EDT documented as of this encounter Care Teams Boil Off Machine Operator Cloth Relationship Specialty Start Date End Date Bea Becker NP [address] [place] [address] PCP - General Family Medicine 02/10/23 documented as of this encounter
--- OUTSIDE RECORDS SUMMARY | 2024-08-05 12:24 | XMS_ITS | Encounter Summary ---
Author Organization [employer] Address [address] [place] [address] Care Team Providers Care Lead Presser Name Role Phone Jorge Archer WANDA Primary Care Provider [phone] Reason for Visit * Reason Onset Date Comments med refill 07/27/2024 Encounter Details Date Type Department Care Team (Late st Contact Info) Description 07/27/2024 Telephone Obstetrics & Gynecology - [address] [address] Pippa Dobbins, [address] [place] [address] med refill Social History Tobacco Use Types Packs/Day Years [...] on file Sexual Orientation Not on file documented as of this encounter Functional Status * Are you deaf or do you have serious difficulty hearing? Answer Date of Assessment Author No 05/18/2024 11:20 PM EST Janet Villalba RN * Are you blind or do you have serious difficulty seeing, even when wearing glasses? Answer Date of Assessment Author No 05/18/2024 11:20 PM EST Janet Villalba RN * Do you have serious difficulty walking or climbing stairs? Answer Date of Assessment Author No 05/18/2024 11:20 PM EST Janet Villalba RN * Do you have serious difficulty dressing or bathing? Answer Date of Assessment Author No 05/18/2024 11:20 PM Janet Banda RN * Because of a physical, mental, or emotional condition, do you have serious difficulty doing errandsalone such as visiting the doctor? Answer Date of Assessment Author No 05/18/2024 11:20 PM Janet Banda RN documented as of this encounter Mental Status * Because of a physical, mental, or emotional condition, do you have serious difficulty concentrating, remembering, or making decisions? (5 years old or older) Answer Entry Date Author No 05/18/2024 11:20 PM Janet Banda RN documented in this encounter Ordered Prescriptions Prescription Sig Dispense Quantity Refills Last Filled Start Date End Date norethindrone (AYGESTIN) 5 mg tablet Take 1 tablet (5 mg total) by mouth 1 (one) time each day. 30 each 08/03/2024 08/03/2025 documented in this encounter Progress Notes * Josette Buchanan MA - 08/03/2024 1:36 PM EDT Called pt and notified that script was sent to help with uterine fibroid, pt advise to report any JOHNSON/CP/SOB/Leg cramps, pt understood. Will come back 11/03/24 for med check * Pippa Dobbins CNM - 08/03/2024 1:18 PM EDT Pt can start Aygestin progestin only pill ( she is a smoker ). Script sent to pharmacy Reports any severe JOHNSON/CP/SOB/Leg cramps Follow up office appt in 3 months for med and BP check. Pippa Dobbins CNM * Leidy Kohli - 07/27/2024 2:18 PM EDT Pt calling, states was seen on 07/26/25 and it had been discussed that provider can send medication for pt to start to help with her fibroids . Pt states after thinking about it further, she would like to start medication. Pls advise and send rx [facility] tiffanie Aguila documented in this encounter Plan of Treatment Upcoming Encounters Date Type Department Care Team (Late st Contact Info) Description 08/31/2024 11:15 AM EDT Office Visit Obstetrics & Gynecology [address] [address] Pippa Dobbins [address] [address] 11/02/2024 1:00 PM EDT Office Visit Obstetrics & Gynecology [address] [address] Pippa Dobbins [address] [address] documented as of this encounter Visit Diagnoses Not on filedocumented in this encounter Care Teams Lead Presser Relationship Specialty Start Date End Date Jorge Archer NP [address] [place] [address] PCP - General Nurse Practitioner 05/18/24 documented as of this encounter
--- OUTSIDE RECORDS SUMMARY | 2024-08-05 12:24 | XMS_ITS | Encounter Summary ---
Author Organization [employer] Address [address] [place] [address] 7t [place] [address] Care Team Providers Care Emergency Registrar Name Role Phone JoeShyla anderson LIQUOR STORES AND AGENCIES SUPERVISOR Primary Care Provider [phone] Bea Becker NP Primary Care Provider [phone] Encounter Details Date Type Department Care Team (Late st Contact Info) Description 02/05/2023 Abstract [facility] [address] [place] [address] Ying Wren Social History Tobacco Use Types Packs/Day Years Used Date Smoking Tobacco: Every Day Cigarettes Smokeless Tobacco: Never Comments No Sex and Gender Information Value [...] Description 09/12/2024 10:00 AM EDT Office Visit [facility] [address] [place] [address] Bea Becker NP [address] [place] [address] documented as of this encounter Procedures Procedure Name Priority Date/Time Associated Diagnosis Comments PAP/HPV Routine 03/11/2021 documented in this encounter Results * (ABNORMAL) Hm Pap Smear (03/11/2021) Pap Epithelial cell abnormality(A ) Negative for intraephithelial lesion or malignancy, Other Comment:ASCUS HPV Undetected us Historical Provider HEALTH MAINTENANCE Final Result documented in this encounter Visit Diagnoses Not on filedocumented in this encounter Care Teams Emergency Registrar Relationship Specialty Start Date End Date Shyla Diaz FNP PCP - General Family Medicine 12/29/21 02/09/23 Bea Becker NP [address] [place] [address] PCP - General Family Medicine 02/10/23 documented as of this encounter
--- OUTSIDE RECORDS SUMMARY | 2024-08-05 12:24 | XMS_ITS | Encounter Summary ---
Author Organization [employer] Address [address] 7t [place] [address] Care Team Providers Care General Partner Name Role Phone Shyla Diaz Lilli COMMUNICATION CONSULTANT Primary Care Provider [phone] Bea Becker NP Primary Care Provider [phone] Reason for Visit * Reason Comments Med Change Request Encounter Details Date Type Department Care Team ([facility] st Contact Info) Description 04/30/[address] [facility] [address] [place], [place] [phone] Ronal Stout MD [address] [place] [address] Tobacco dependence Social History Tobacco Use Types Packs/Day Years Used Date Smoking Tobacco: Every Day Cigarettes Smokeless Tobacco: Never Comments Unknown Sex and Gender Information Value Date Recorded Sex Assigned at Female 03/03/2022 10:18 AM EDT Legal Sex Female 10:18 AM EDT Gender Identity Female 03/03/2022 10:18 AM EDT Sexual Orientation Don't know 03/03/2022 10 :18 AM EDT COVID-19 Exposure Response Date Recorded In the last 10 days, have yo u been in contact with someone who was confirmed or suspected to have Coronavirus/COVID-19? No / Unsure 04/30/2022 4:23 PM EST documented as of this encounter Miscellaneous Notes * Telephone Encounter - Farida Lima RN - 05/09/2022 9:13 AM EST ----- Message from Ronal Stout MD sent at 05/08/2022 4:44 PM EST ----- Please let Tegan know that her serum hCG was neg. For . Pelvic US was ordered at [facility] visit. Thanks. Eagle * Telephone Encounter - Farida Lima RN - 05/09/2022 9:12 AM EST Fist call to relay information, left message to call back. * Telephone Encounter - Farida Lima RN - 05/09/2022 9:11 AM EST ----- Message from Ronal Stout MD sent at 05/08/2022 4:44 PM EST ----- Please let Tegan know that her serum hCG was neg. For . Pelvic US was ordered at [facility] visit. Thanks. Eagle documented in this encounter Plan of Treatment Upcoming Encounters Date Type Department Care Team (Late st Contact Info) Description 09/12/2024 10:00 AM EDT Office Visit [facility] [address] [place] [address] Bea Becker NP [address] [place] [address] documented as of this encounter Visit Diagnoses Diagnosis Tobacco dependence Tobacco use disorder documented in this encounter Care Teams General Partner Relationship Specialty Start Date End Date Shyla Diaz FNP PCP - General Family Medicine 12/29/21 02/09/23 Bea Becker NP [address] [place] [address] PCP - General Family Medicine 02/10/23 documented as of this encounter
--- OUTSIDE RECORDS SUMMARY | 2024-08-05 12:24 | XMS_ITS | Encounter Summary ---
Author Organization [employer] Address [address] [place] [address] 7t [place] [address] Care Team Providers Care Manager Farm Name Role Phone Bea Becker NP Primary Care Provider [phone] Reason for Visit * Reason Onset Date Comments Appointment Request 06/30/2023 Encounter Details Date Type Department Care Team ([facility] st Contact Info) Description 06/30/2023 Telephone [facility] [address] [place], [place] [phone] Bea Becker NP [address] [place] [address] Appointment Request Social History Tobacco Use Types Packs/Day Years Used Date Smoking Tobacco: Every Day Cigarettes Smokeless Tobacco: Never Comments No Sex and Gender Information Value Date Recorded Sex Assigned at Female 03/03/2022 10:18 AM EDT Legal Sex Female 10:18 AM EDT Gender Identity Female 03/03/2022 10:18 AM EDT Sexual Orientation Don't know 03/03/2022 10 :18 AM EDT documented as of this encounter Miscellaneous Notes * Telephone Encounter - Hernandez Brasher - 10/13/2023 3:06 PM EDT Tc from patient calling in regards to the message below stated has not received a call to make apptwith new provider * Telephone Encounter - Filiberto Doshi RN - 06/30/2023 1:29 PM EST T/C to pt. For below message , No answer. LVM to call back on [phone]. * Telephone Encounter - Hernandez Anshu - 06/30/2023 11:18 AM EST Tc from patient calling to reschedule missed appt for 05/08 documented in this encounter Plan of Treatment Upcoming Encounters Date Type Department Care Team (Late st Contact Info) Description 09/12/2024 10:00 AM EDT Office Visit [facility] [address] [place] [address] Bea Becker NP [address] [place] [address] documented as of this encounter Visit Diagnoses Not on filedocumented in this encounter Care Teams Manager Farm Relationship Specialty Start Date End Date Bea Becker NP [address] [place] [address] PCP - General Family Medicine 02/10/23 documented as of this encounter
--- OUTSIDE RECORDS SUMMARY | 2024-08-05 12:24 | XMS_ITS | Encounter Summary ---
Author Organization [employer] [facility] Address [address] [place] [address] 7 [place] [address] Care Team Providers Care Actuarial Mathematician Name Role Phone Shyla Diaz Primary Care Provider [phone] Bea Becker NP Primary Care Provider [phone] Encounter Details Date Type Department Care Team (Late st Contact Info) Description 02/05/2023 Abstract [facility] [address] [place] [address] Ying Wren Social History Tobacco Use Types [...] Description 09/12/2024 10:00 AM EDT Office Visit [facility] [address] [place] [address] Bea Becker NP [address] [place] [address] documented as of this encounter Visit Diagnoses Not on filedocumented in this encounter Care Teams Actuarial Mathematician Relationship Specialty Start Date End Date Shyla Diaz FNP PCP - General Family Medicine 12/29/21 02/09/23 Bea Becker NP [address] [place] [address] PCP - General Family Medicine 02/10/23 documented as of this encounter
--- OUTSIDE RECORDS SUMMARY | 2024-08-05 12:24 | XMS_ITS | Encounter Summary ---
Author Organization [employer] [facility] Address [address] [place] [address] 7 [place] [address] Care Team Providers Care Database Administration Manager Name Role Phone Shyla Diaz Primary Care Provider [phone] Bea Becker NP Primary Care Provider [phone] Encounter Details Date Type Department Care Team (Late st Contact Info) Description 02/05/2023 Abstract [facility] [address] [place] [address] Ying Wren Social History Tobacco Use Types [...] Description 09/12/2024 10:00 AM EDT Office Visit [facility] [address] [place] [address] Bea Becker NP [address] [place] [address] documented as of this encounter Visit Diagnoses Not on filedocumented in this encounter Care Teams Database Administration Manager Relationship Specialty Start Date End Date Shyla Diaz FNP PCP - General Family Medicine 12/29/21 02/09/23 Bea Becker NP [address] [place] [address] PCP - General Family Medicine 02/10/23 documented as of this encounter
== END 2024-08-05 10:47 | disposition home or self-care (01) ==
LOC: HO.US 10:46
PROVIDERS: PCP Registered Nurse; Visit Provider Obstetrics & Gynecology
DX: N94.6 Dysmenorrhea, unspecified (principal)
CPT/HCPCS: 76830; 76856

== ENCOUNTER → 2024-08-05 10:48 | Outpatient (BNV) | payer MEDICAID, SELFPAY | PROVIDERS: PCP Registered Nurse; Visit Provider Radiology Diagnostic Radiology | DX: N94.6 Dysmenorrhea, unspecified (principal) | CPT/HCPCS: 76830; 76856 ==

== ENCOUNTER 2025-01-25 15:26 | Outpatient (AMB) | payer MEDICAID, SELFPAY ==
--- NOTE | 2025-01-25 15:27 | MHC.OFFVIS ---
Intake Visit Reasons: US follow up/2nd appt Flat Knitter Helper Required: Yes Flat Knitter Helper Language: Armed Custom Protection Officer Services: Flat Knitter Helper Present (in person) Flat Knitter Helper Name: BRENNA Camp Information Interpreted: non-clinical & clinical Allergies SEAFOOD Allergy (Severe, Uncoded 02/29/24 15:24) Anaphylaxis HPI Comments Details: The patient is scheduled for a telehealth visit for follow-up ultrasound regarding dysmenorrhea. GC/CT done was negative. The patient is complaining of irregular menstrual cycles Pelvic ultrasound done in 08/26 showed the following: Uterus: The uterus is mildly enlarged, measuring 11.6 x 3.8 x 5.8 cm. Myometrium has a heterogeneous echotexture. Again seen is an 8 x 6 x 8 mm fibroid on the right. Endometrium: The endometrial stripe difficult to visualize, but appears to measure 5 mm in thickness. Right ovary: The right ovary measures 1.3 x 2.0 x 1.2 cm. The right ovary is normal in size and echotexture. Left ovary: The left ovary measures 0.8 x 1.7 x 1.3 cm. The left ovary is normal in size and echotexture. Pelvic fluid: none PFSH Medical History Hypertension Vertigo Pituitary abnormality Anemia Bipolar 1 disorder Depression Migraine Asthma Surgical History H/O myomectomy deliv NOS-unsp Status post trigger finger release Family History Mother Hypertension Emphysema lung Father Hypertension Epilepsy Social History Alcohol intake: former Patient Tobacco Use Status: Current someday Tobacco user Cigarettes Per Day: 7 Current occupational status: unemployed Current occupation: Right Handed Female Reproductive History Menstrual Age of Menarche: 13 Review of Systems Const All systems reviewed & are unremarkable except as noted in HPI and below Reports as per HPI and Reports no additional complaints GI Reports no additional complaints Reports no additional complaints Telehealth Telehealth Telehealth Platform: [facility] Location of provider rendering services: practice address Location of patient: address on file Patient Identification confirmed using: Name, : Yes Telehealth method: video Patient verbally consented to treatment: Yes Patient verbally consented to billing insurance company: Yes Patient informed of any privacy concerns related to visit: Yes Minutes spent on Phone/Video with Pt.: 10 Assessment & Plan Assessment & Plan (1) Fibroid, uterine: Code(s): D25.9 - Leiomyoma of uterus, unspecified Category: Medical Plan: Discussed with the patient the findings on pelvic ultrasound & the risk of myosarcoma; in addition reviewed with the patient that malignancy and pre malignancy cannot be ruled out without hysterectomy for pathological evaluation ; furthermore, explained to the patient the limitation of pelvic ultrasound and endometrial biopsy in the setting. Discussed with the patient the options of treatment including expectant management versus hysterectomy; the pros and cons, risks benefits of each approach were discussed with the patient including the fact that in cases of myosarcoma, surgical treatment can lead to early diagnosis and positively affects the prognosis; after further discussion, the patient decided to proceed with expectant management. Will repeat pelvic ultrasound periodically. Instructions given to patient to call in case any of the following occurs: pressure symptoms, abnormal uterine bleeding, pelvic pain; and to schedule a six-months pelvic ultrasound (order placed) and a follow-up appointment . All questions answered, the patient verbalized understanding and agreed with the plan . (2) Abnormal uterine bleeding (AUB): Code(s): N93.9 - Abnormal uterine and vaginal bleeding, unspecified Category: Medical Plan: Screening mammogram, CBC, TSH, HCG, FSH/LH and pelvic ultrasound ordered. Discussed with the patient the different causes of abnormal bleeding including thyroid disorders, uterine and ovarian pathology, endometrial hyperplasia, carcinoma and other potential causes. Discussed with the patient the work up including CBC (to r/o anemia), TSH, pelvic Ultrasound, endometrial biopsy to r/o endometrial pathology. All questions answered and the patient verbalized understanding. Instructed the patient to schedule an appointment for an endometrial biopsy in 2 weeks. All questions answered, the patient verbalized understanding I spent a total of 20 minutes reviewing the chart, talking to the patient via video and documenting in the medical record. Orders: Orders MM screening mammo BI Today Z12.31 - Encounter for screening mammogram for malignant neoplasm of breast US pelvic and transvaginal Today N93.9 - Abnormal uterine and vaginal bleeding, unspecified Complete Blood Count no Diff Today N93.9 - Abnormal uterine and vaginal bleeding, unspecified TSH reflex Free T4 Today N93.9 - Abnormal uterine and vaginal bleeding, unspecified Follicle Stimulating Hormone Today N93.9 - Abnormal uterine and vaginal bleeding, unspecified Lutenizing Hormone Today N93.9 - Abnormal uterine and vaginal bleeding, unspecified Coding Level of Care Code [facility] Pt Level 3 (64905) Diagnoses Fibroid, uterine D25.9 Abnormal uterine bleeding (AUB) N93.9
--- OUTSIDE RECORDS SUMMARY | 2025-01-25 17:50 | XMS_ITS | Clinical Summary ---
Author Organization [facility] Address [address] [place] [address] Phone Care Team Providers Care Plastic Tool Maker Name Role Phone Jorge Archer NP Primary Care Provider [phone] Allergies Active Allergy Reactions Criticality Noted Date [...] pain. 60 tablet 07/26/2024 07/27/19 26 Active Active Problems Problem Noted Date Diagnosed Date Moderate anxiety 07/29/2024 Current tobacco use 07/26/2024 Irregular menstrual bleeding 06/17/2023 Bilateral carpal tunnel syndrome 08/14/2022 Trigger ring finger of right hand 08/14/2022 Class 1 obesity 05/26/2022 Hyperprolactinemia (CMS/HCC V24) 05/26/2022 Primary hypertension 05/26/2022 Overview (08/26/2024): Care managed by Dr. oLu Hills appt 04/23/22 Stable, Followup 6 months Hyperlipidemia 05/14/2021 Overview (08/26/2024): Care managed by Dr. Lou Hills appt 04/23/22 Stable, continue statin Followup 6 months Abnormal uterine bleeding 04/11/2021 Overview (08/26/2024): 10/13/22: Endometrial Biopsy Benign abnormal secretory endometrium with poorly developed secretory glands and dense stroma; no atypia or carcinoma. Comment: Some fragments may be derived from benign polyps. recommended hysteroscopy D C possible polypectomy/myomectomy 11/14/22: Hysteroscopy performed. Normal endometrial and endocervical cavity, no evidence of pathology Atypical squamous cells of u ndetermined significance (ASCUS) on Papanicolaou smear of cervix 04/11/2021 Fibroid uterus 11/29/2019 Overview (05/31/2024): Uterus: 11.7 x 7.3 x 6.8 cm in size. Anteflexed in the midline. 4.4 x 4.0 x 3.7 cm heterogeneous hypoechoic mass in the anterior fundus toward the right likely represents a fibroid. Uterine echotexture is mildly heterogeneous possibly secondary to underlying fibroid disease Asthma 11/03/2012 Bipolar disorder ([facility] V24, [facility] V28) 07/2012 Migraine 11/03/2012 Anemia 12/01/2011 Immunizations Name Administration Dates Next Due Hepatitis B (Xmjdihl-G-Hvhzd , Recombivax HB-Adult) 19yo and older 11/05/2010,06/26/2010,02/22/2010 Influenza Quadrivalent, 0.5m l, preservative free (Fluarix; FluLaval; Fluzone) ages 6mo and older (Afluria) 3yo and older 02/26/2021,02/22/2020,02/28/2017 Influenza Quadrivalent, with preservative (Fluzone; Afluria) 6mo and older 01/15/2018 Influenza trivalent, 0.5mL, preservative free (Fluarix; FluLaval; Fluzone) ages 6mo and older (Afluria) 3 years and older 08/04/2014 Influenza trivalent, with preservative (Fluzone; Afluria) 6mo and older 01/28/2011 Td Tetanus diptheria (Tdvax) 7yo and older 03/12/2005 Tdap Tetanus diptheria acell ular pertussis (Boostrix; Adacel) 7yo and older 01/15/2018,06/27/2015,07/14/2014,2013 Surgical History Surgery Date Site/Laterality Comments SECTION 2016 PROCEDURE: HISTORICAL DELIVERY OTHER SURGICAL HISTORY 2011, 2011, 2003 PROCEDURE: DE DILATION & CURETTAGE DX&/THER NONOBSTETRIC; COMMENT: x3 Medical History Medical History Date Comments Depression DX:Depression Anxiety DX:Anxiety Asthma DX:Asthma Essential hypertension DX:Essent ial hypertension Migraines Anemia 12/01/2011 Family History Medical History Relation Name Comments [...] Sexual Orientation Not on file Obstetrics History * This document contains information received from the source organization and may not represent a complete record from that organization. Para Term AB IAB SAB Ectopic Multiple Livin g Live Births 8 6 6 5 6 Date Outcome GA Total Labor Labor/2nd/3rd Weight Sex Type Anes PTL Manjula A1 A5 Name Clin 2004 7 Term 38w 0d 3317 g (117 oz) M Vag-S pont None Livin g Delivery Location:[facility] 8 Term 38w 0d 2778 g (98 oz) M Vag-S pont None Livin g Delivery Location:[facility] 2011 4 Term 40w 0d 2325 g (82 oz) F Vag-S pont Epidur al Decea sed Delivery Location:[facility] Comments:IUFD 5 Term 38w 0d 2722 g (96 oz) M Vag-S pont Livin g Delivery Location:[facility] 2015 Term 37w 3d 3317 g (117 oz) M CS-LT ranv Spinal Livin g Dr Hitchcock Complications:Transverse lie of fetus,Footling breech presentation Delivery Location:[facility] Comments:transverse fo otling breech 2016 Term 38w 6d 3033 g (107 oz) M CS-Un spec Spinal Livin g Dr. Xavier ood Delivery Location:[facility] Last Filed Vital Signs Vital Sign Reading Time Taken Comments Blood Pressure 136/84 08/31/2024 10:54 AM EDT Pulse 95 08/31/2024 10:54 AM EDT Temperature 36.6 C (97.9 F) 06/28/2024 6:38 PM EST Respiratory Rate 12 07/26/2024 11:5 4 AM EDT Oxygen Saturation 99% 06/28/2024 6:38 PM EST Inhaled Oxygen Concentration - - Weight 71.2 kg (156 lb 14.4 oz) 025 10:54 AM EDT Height 162.6 cm (5' 4 ) 08/31/2024 10:5 4 AM EDT Body Mass Index 26.93 08/31/2024 10:54 AM EDT Plan of Treatment Health Maintenance Due Date Last Done Comments Pneumococcal Vaccine: Pediatrics (0 to 5 Years) and At-Risk Patients (6 to 49 Years) (1 of 2 - PCV) 10/12/1995 Breast Cancer Screening 11/28/2019 11/27/2017 Colorectal Cancer Screening: Colonoscopy 04/06/2022 Social Influencers of Health Screening 04/06/2022 Depression Screening 05/04/2024 Cervical Cancer Screening: HPV 06/01/2024 06/01/2019 COVID-19 Vaccine ( season) 2025 Influenza Vaccine (#1) 2025 , 02/22/2020, 01/15/2018, Additional history exists Hypertension/CHF/CAD Annual BMP Blood Test 06/28/2025 06/28/2024, 05/18/2024, 06/19/2016 Cholesterol Screening (Lipid Panel) 05/13/2026 05/13/2021 DTaP,Tdap,and Td Vaccines (6 - Td or Tdap) 01/16/2028 01/15/2018, 06/27/2015, 07/14/2014, Additional history exists RSV Immunization Adult Patients (1 - 1-dose 75+ series) 10/12/2051 Hepatitis [...] age to complete this topic Meningococcal B Vaccine Aged Out No l onger eligible based on patient's age to complete this topic RSV Immunization Patients Under 20 months Aged Out No longer eligible based on patient's age to complete this topic Varicella Vaccines Aged Out No longer eligible based on patient's age to complete this topic Procedures Procedure Name Priority Date/Time Associated Diagnosis Comments BASIC METABOLIC PANEL STAT 06/28/2024 10:11 PM EST HPV Routine 06/01/2019 HEPATITIS C SCREENING Routine 06/01/2019 HIV SCREENING Routine 06/01/2019 from Last 3 Months or Most Recently Relevant to Health Maintenance Results * Basic metabolic panel (06/28/2024 10:11 PM EST) Sodium 140 133 - 145 mmol/L LAB CHEMISTRY METHOD 06/28/2024 10:55 PM EST [facility] Potassium 3.8 3.5 - 5.5 mmol/L LAB CHEMISTRY METHOD 06/28/2024 10:55 PM EST [facility] Chloride 110 96 - 110 mmol/L LAB CHEMISTRY METHOD 06/28/2024 10:55 PM EST [facility] CO2 26 21 - 32 mmol/L LAB CHEMISTRY METHOD 06/28/2024 10:55 PM [facility] Anion Gap 4 3 - 11 LAB CHEMISTRY METHOD 06/28/2024 10:55 PM [facility] Glucose 94 70 - 100 mg/dL LAB CHEMISTRY METHOD 06/28/2024 10:55 PM [facility] BUN 9 5 - 25 mg/dL LAB CHEMISTRY METHOD 06/28/2024 10:55 PM [facility] Creatinine 0.63 0.50 - 1.10 mg/dL LAB CHEMISTRY METHOD 06/28/2024 10:55 PM [facility] eGFR 110 >=60 mL/min/1. 73m2 LAB CHEMISTRY METHOD 06/28/2024 10:55 PM [facility] Comment:Calculation based on the Chronic Kidney Disease Epidemiology Collaboration (CKD-EPI) equation refit without adjustment for race. BUN/Creatinine Ratio 14.3 LAB CHEMISTRY METHOD 06/28/2024 10:55 PM [facility] Calcium 8.9 8.5 - 10.5 mg/dL LAB CHEMISTRY METHOD 06/28/2024 10:55 PM [facility] Blood Venous blood specimen / Unknown Venipuncture / Unknown 06/28/2024 10:11 PM EST 06/28/2024 10:23 PM EST Jessica [place] LAB BLOOD ORDERABLES Final Resul t [facility] [address] [place] [address], * Cervical Cancer Screening: HPV (06/01/2019) Cervical Cancer Screening: HPV Negativie abstracted Historical Provider HEALTH MAINTENANCE Final Result * HIV Screening (06/01/2019) HIV Screening Abstracted Historical Provider HEALTH MAINTENANCE Final Result * Hepatitis C Screening (06/01/2019) Hepatitis C Screening Abstracted us Historical Provider MD HEALTH MAINTENANCE Final Result from Last 3 Months or Most Recently Relevant to Health Maintenance Insurance MEDICAID [facility] Care Teams Plastic Tool Maker Relationship Specialty Start Date End Date Jorge Archer NP [address] [place], [place] PCP - General Nurse Practitioner 05/18/24
--- OUTSIDE RECORDS SUMMARY | 2025-01-25 17:50 | XMS_ITS | Encounter Summary ---
Author Organization [employer] Address [address] [facility] [address] [place] [address] Care Team Providers Care Child Caregiver Name Role Phone Bea Becker NP Primary Care Provider [phone] Page White Unavailable Chapo Monique RN Unavailable [phone] Reason for Visit * Reason Comments Med Refill Encounter Details Date Type Department Care Team (Late st Contact Info) Description 01/20/[address] [facility] [address] [place] [address] Bea Becker NP [address] [place] [address] Primary hypertension Social History Tobacco Use Types Packs/Day Years Used Date Smoking Tobacco: Every Day Cigarettes Smokeless Tobacco: Never Depression Answer Date Recorded Patient Health Questionnaire-9 Score 13 12/28/2024 Patient Health Questionnaire-9 Score 13 12/28/2024 Last PHQ-9: Questionnaire Data Not on file 0 12/28/2024 Housing Stability Answer Date Recorded What is [...] things needed for daily living? No 07/15/2024 Intimate Partner Violence Answer Date R ecorded Within the last year, have y ou been afraid of your partner or ex-partner? 2 12/28/2024 Within the last year, have y ou been humiliated or emotionally abused in other ways by your partner or ex-partner? 2 Within the last year, have y ou been kicked, hit, slapped, or otherwise physically hurt by your partner or ex-partner? 2 12/28/2024 Within the last year, have y ou been raped or forced to have any kind of sexual activity by your partner or ex-partner? 2 12/28/2024 Utilities Answer Date Recorded In the past 12 months, has t he electric, gas, oil or water company threatened to shut off services in your home? I am not sure 07/15/2024 Depression Answer Date Recorded Patient Health Questionnaire-2 Score 4 12/28/2024 Internet Access Answer Date Recorded Internet Access [...] Care Team (Late st Contact Info) Description 02/03/2025 11:30 AM EDT Office [address] [facility] [address] [place] [address] Bea Becker NP [address] [place] [address] documented as of this encounter Visit Diagnoses Diagnosis Primary hypertension Unspecified essential hypertension documented in this encounter Additional Health Concerns Assessment Noted Time PHQ-9 Depression Total Score: 13 025 3:07 PM EDT documented as of this encounter Care Teams Child Caregiver Relationship Specialty Start Date End Date Bea Becker NP [address] [place] [address] PCP - General Family Medicine 02/10/23 Page White 10/25/24 Chapo Monique, RN [address] [place] [address] Registered Nurse Family Medicine 12/21/24 documented as of this encounter
--- OUTSIDE RECORDS SUMMARY | 2025-01-25 17:50 | XMS_ITS | Encounter Summary ---
Author Organization [employer] Address [address] [place] [address] [place] [address] Care Team Providers Care Fraud Representative Name Role Phone Shyla Diaz Primary Care Provider Priscilla Bea Coles NP Primary Care Provider [phone] Amy Reynolds RN Unavailable [phone] Page White Unavailable Chapo Monique RN Unavailable [phone] Encounter Details Date Type Department Care Team (Late st Contact Info) Description 02/05/2023 Abstract [facility] [address] [place] [address] Ying Wren Social History Tobacco Use Types [...] Description 02/03/2025 11:30 AM EDT Office Visit [facility] [address] [place], [place] [phone] Bea Becker NP [address] [place] [address] documented as of this encounter Visit Diagnoses Not on filedocumented in this encounter Care Teams Fraud Representative Relationship Specialty Start Date End Date Shyla Diaz FNP PCP - General Family Medicine 12/29/21 02/09/23 Bea Becker NP [address] [place] [address] PCP - General Family Medicine 02/10/23 Amy Reynolds, ERASMO [address] [place] [address] Registered Nurse Family Medicine 10/25/24 12/21/24 Page White 10/25/24 Chapo Monique, RN [address] [place] [address] Registered Nurse Family Medicine 12/21/24 documented as of this encounter
--- OUTSIDE RECORDS SUMMARY | 2025-01-25 17:50 | XMS_ITS | Encounter Summary ---
Author Organization [employer] Address [address] [place] [address] 7 [place] [address] Care Team Providers Care Security Shift Manager Name Role Phone Bea Becker NP Primary Care Provider [phone] Page White Unavailable Chapo Monique RN Unavailable [phone] Reason for Visit * Reason Comments Care Coordination C3CM/CHW Page harvey, Sdoh assessment, enrolled Encounter Details Date Type Department Care Team (Latest Contact Info) Description 01/24/2025 Patient Outreach [facility] [address] [place] [address] Bea Becker NP [address] [place] [address] Care Coordination (C3CM/Yajaira Branch assessment, enrolled) Social History Tobacco Use Types Packs/Day Years Used Date Smoking Tobacco: Every Day Cigarettes Smokeless Tobacco: Never Depression Answer Date Recorded Patient Health Questionnaire-9 Score 13 12/28/2024 Patient Health Questionnaire-9 Score 13 12/28/2024 Last PHQ-9: Questionnaire Data Not on file 0 12/28/2024 Housing Stability Answer Date Recorded What is your housing situation today? I have krzysztof monica 01/24/[address] you li ve. Do you have problems with any of the following? None of the above 01/24/2025 Food Insecurity Answer Date Recorded Within the past 12 months, y ou worried that your food would run out before you got money to buy more: Often true 01/24/2025 Within the past 12 months,th e food you bought just didn't last and you didn't have enough money to get more: Often true Transportation Answer Date Recorded In the past [...] to shut off services in your home? No 01/24/2025 Depression Answer Date Recorded Patient Health Questionnaire-2 [...] AM EDT documented as of this encounter Progress Notes * Page White - 01/24/2025 2:29 PM EDT CHW Page White placed an outbound call to patient to assess SDOH needs. Patient???s name, , and address were confirmed. Patient reported stable housing, no issues with transportation or utilities, and internet access in the home. However, patient reported experiencing food insecurity. CHW introduced the [facility] Nutrition Program and explained program details. Patient was agreeable to participate, and a referral was placed. CHW reinforced direct contact information at or Benefits Consultant at for any additional questions or concerns, and reminded patient of extended clinic hours on Mondays and Wednesdays, as well as Walk-In Urgent Care located in the [facility]. Patient was also provided with the after-hours line for [facility] ([phone]), which offers nighttime triage services and the option to transfer to the on-call provider if needed. Patient verbalized understanding and was able to repeat back information to the CHW. A follow-up call will be placed within 10 days, and patient agreed with the plan. documented in this encounter Plan of Treatment Upcoming Encounters Date Type Department Care Team ([facility] st Contact Info) Description 02/03/2025 11:30 AM EDT Office Visit [facility] [address] [place] [address] Bea Becker NP [address] [place], [place] [phone] documented as of this encounter Visit Diagnoses Not on filedocumented in this encounter Additional Health Concerns Assessment Noted Time PHQ-9 Depression Total Score: 13 12/28/ 025 3:07 PM EDT documented as of this encounter Care Teams Security Shift Manager Relationship Specialty Start Date End Date Bea Becker NP [address] [place] [address] PCP - General Family Medicine 02/10/23 Page White 10/25/24 Chapo Monique, RN [address] [place] [address] Registered Nurse Family Medicine 12/21/24 documented as of this encounter
--- OUTSIDE RECORDS SUMMARY | 2025-01-25 17:50 | XMS_ITS ---
Author Organization [employer] Address [address] [place] [address] [address] [place] [address] Care Team Providers Care Hand Drawer In Helper Name Role Phone Bea Becker NP Primary Care Provider [phone] Page White Unavailable Chapo Monique RN Unavailable [phone] CM Complex Status:Enrolled (Active) Start date:10/25/2024 Enrollment date:12/28/2024 Enrollment reason:ADT Feed Overview ED- Pt went to [facility] ED on 10/24/24. Case Team Name Relationship Phone Chapo Monique RN(Responsible Staff) Registered [facility] [phone] Continued Care and Services Coordination
--- OUTSIDE RECORDS SUMMARY | 2025-01-25 17:50 | XMS_ITS | Encounter Summary ---
Author Organization [employer] Address [address] [facility] 7t [place] [address] Care Team Providers Care Traffic Representative Name Role Phone Bea Becker NP Primary Care Provider [phone] Page White Unavailable Chapo Monique RN Unavailable [phone] Reason for Visit * Reason Comments Care Management C3CM- F/U call # 1 Encounter Details Date Type Department Care Team ([facility] st Contact Info) Description 01/24/2025 Patient Outreach [facility] [address] [place] [address] Bea Becker NP [address] [place] [address] Care Management (C3CM- F/U call # 1) Social History Tobacco Use Types Packs/Day Years [...] as of this encounter Progress Notes * Chapo Monique RN - 01/24/2025 3:08 PM EDT ANGELINA Monique RN and HOWARD Abel placed outbound call to patient. Patient's name, and addressconfirmed. Patient states is doing well with no recent illnesses or emergency room visits. Patient reports that her asthma is well controlled. Patient reports that her blood pressure fluctuates and that she has been inconsistent with both taking her BP medication and regularly monitoring her blood pressure. CM emphasized to patient the importance of consistent adherence to her medication regimen and encourage patient to track her blood pressure readings more regularly. Patient was also advised on recognizing S&S of elevated blood pressure. Patient was instructed to bring her blood pressure log to her upcoming visit with her PCP for review. Patient reports ongoing neck and shoulder pain,as well as numbness in her hands occurring at night. She shared that she was previously referred toa specialist for evaluation of carpal tunnel syndrome but discontinued follow-up after surgery was discussed. Patient also reports new onset of pain in her left knee. CM advised the patient to discuss her current symptoms and options for pain management with her PCP at the next visit on 02/03/25 @ 11:30 AM. Patient reports that her depression is controlled but that her anxiety is always there. CM advised to ask to speak with BH during upcoming appointment as needed. No further questions or concerns. CM reinforced direct contact information or CHW for any additional questions or concerns. Education provided on Walk-In Urgent Care located in [facility]. Patient provided with after-hours line for [facility], , which offer night time triage service and option to transfer to translation director provider if needed. Patient verbalizes understanding, and able to repeat back to personal lines underwriter. A follow up call will be placed within 10 days, patientagrees with plan. documented in this encounter Plan of Treatment Upcoming Encounters Date Type Department Care Team ([facility] st Contact Info) Description 02/03/2025 11:30 AM EDT Office Visit [facility] [address] [place] [address] Bea Becker NP [address] [place] [address] documented as of this encounter Visit Diagnoses Not on filedocumented in this encounter Additional Health Concerns Assessment Noted Time PHQ-9 Depression Total Score: 13 12/28/ 025 3:07 PM EDT documented as of this encounter Care Teams Traffic Representative Relationship Specialty Start Date End Date Bea Becker NP [address] [place] [address] PCP - General Family Medicine 02/10/23 Page White 10/25/24 Chapo Monique, ERASMO [address] [place] [address] Registered Nurse Family Medicine 12/21/24 documented as of this encounter
--- OUTSIDE RECORDS SUMMARY | 2025-01-25 17:50 | XMS_ITS | Encounter Summary ---
Author Organization [employer] Address [address] [place] [address] [address] [place] [address] Care Team Providers Care Director Acute Name Role Phone Shyla Diaz JEWELRY DRILL OPERATOR Primary Care Provider Priscilla Bea Coles NP Primary Care Provider [phone] Amy Reynolds RN Unavailable [phone] Page White Unavailable Chapo Monique RN Unavailable [phone] Encounter Details Date Type Department Care Team (Late st Contact Info) Description 02/05/2023 Abstract [facility] [address] [place], [place] [phone] Ying Wren Social History Tobacco Use Types [...] Description 02/03/2025 11:30 AM EDT Office Visit [facility] [address] [place], [place] [phone] Bea Becker NP [address] [place] [address] documented as of this encounter Procedures Procedure Name Priority Date/Time Associated Diagnosis Comments PAP/HPV Routine 03/11/2021 documented in this encounter Results * (ABNORMAL) Pap Smear (03/11/2021) Pap Epithelial cell abnormality(A ) Negative for intraephithelial lesion or malignancy, Other Comment:ASCUS HPV Undetected us Historical Provider HEALTH MAINTENANCE Final Result documented in this encounter Visit Diagnoses Not on filedocumented in this encounter Care Teams Director Acute Relationship Specialty Start Date End Date Shyla Diaz FNP PCP - General Family Medicine 12/29/21 02/09/23 Bea Becker NP [address] [place] [address] PCP - General Family Medicine 02/10/23 Amy Reynolds RN [address] [place] [address] Registered Nurse Family Medicine 10/25/24 12/21/24 Page White 10/25/24 Chapo Monique, RN [address] [place] [address] Registered Nurse Family Medicine 12/21/24 documented as of this encounter
--- OUTSIDE RECORDS SUMMARY | 2025-01-25 17:50 | XMS_ITS | Clinical Summary ---
Author Organization [employer] Address [address] [place] [address] 7t [place] [address] Care Team Providers Care In Flight Technician Name Role Phone Bea Becker NP Primary Care Provider [phone] Page Whtie Unavailable Chapo Monique RN Unavailable [phone] Allergies Active Allergy Reactions Criticality Noted Date Comments Latex 06/06/2022 Shellfish Allergy Hives,Anaphylaxis High 06/06/2022 Medications * This document contains information received from the source organization and may not represent a complete record from that organization. nicotine polacrilex (Commit) 2 MG lozengeIndicati ons:Tobacco dependence Dissolve 1 lozenge (2 mg) in the mouth if needed for smoking cessation. 100 lozenge 04/30/20 22 Active aspirin-acetami nophen-caffeine (Excedrin Migraine) 250-250-65 MG tabletIndicatio ns:Acute non intractable tension-type headache Use one tablet every 8 hours as needed for headache, do not use more than 5 days in a row 30 tablet 06/04/19 23 Active albuterol (2.5 MG/3ML) 0.083% nebulizer solutionIndicat ions:Asthma, unspecified asthma severity, unspecified whether complicated, unspecified whether persistent Take 3 mL (2.5 mg) by nebulization every 4 (four) hours if needed for wheezing. 75 mL 2 08/15/19 23 Active Spacer/Aero-Hol ding Chambers deviceIndicatio ns:Mild intermittent asthma without complication 1 each every 4 (four) hours if needed (wheezing, cough). 1 each 08/15/19 23 Active SUMAtriptan (Imitrex) 25 MG tabletIndicatio ns:Chronic migraine without aura without status migrainosus, not intractable Take 1 tablet (25 mg) by mouth 1 (one) time if needed for migraine for up to 1 dose. May repeat dose once in 2 hours if no relief. Do not exceed 2 doses in 24 hours. 9 tablet 08/15/19 23 Active albuterol 108 (90 Base) MCG/ACT inhalerIndicati ons:Asthma, unspecified asthma severity, unspecified whether complicated, unspecified whether persistent Inhale 2 puffs every 6 (six) hours if needed for wheezing or shortness of breath. 18 g 3 07/16/19 25 2025 Active loratadine (Claritin) 10 MG tabletIndicatio ns:Seasonal allergies TAKE 1 TABLET (10 MG) BY MOUTH ONCE PER DAY. 90 tablet 07/16/19 25 Active naproxen (Naprosyn) 500 MG tablet Take 1 tablet by mouth if needed in the morning and at bedtime for moderate pain. 07/27/19 25 Active norethindrone (Aygestin) 5 MG tablet Take 1 tablet by mouth Once per day. 08/04/19 25 Active lisinopril 10 MG tabletIndicatio ns:Primary hypertension TAKE 1 TABLET (10 MG) BY MOUTH ONCE PER DAY. 90 tablet 1 01/21/20 25 Active lisinopril 10 MG tabletIndicatio ns:Primary hypertension Take 1 tablet (10 mg) by mouth Once per day. 90 tablet 1 07/16/19 25 2024 Discontinued Active Problems Problem Noted Date Diagnosed Date [...] disorder 11/03/2012 Migraine 11/03/2012 Anemia 12/01/2011 Encounters Date Type Department Care Team Description 01/24/2025 Patient Outreach [facility] [address] [place] [address] Bea Becker NP Care Management ([facility]- F/U call # 1) 01/24/2025 Patient Outreach [address] [address] Bea Becker NP Care Coordination ([facility]/[place] Branch[facility] assessment, enrolled) 01/20/[address] [address] Bea Becker NP Primary hypertension 01/09/2025 Patient Outreach [address] [address] Bea Becker NP Care Coordination ([facility]/[place] [facility] assessment_lvm ) 01/03/2025 Plan of Care Documentation [address] [address] 12/30/2024 Patient Outreach [address] [address] Bea Becker NP Care Coordination ([facility]/[place] [facility] assessment_lvm) 12/28/2024 Patient Outreach [address] [address] Bea Becker NP Care Management ([facility]- Initial assessment/enrollmen t) 12/27/2024 Patient Outreach [address] [address] Bea Becker AUTOMATION SALES MANAGER Care Coordination ([facility]/HOWARD White, appt reminder ) 12/21/2024 Patient Outreach [address] [address] Bea Becker AUTOMATION SALES MANAGER Care Coordination ([facility]/HOWARD White, Initial assessment scheduled ) 11/07/2024 Patient Outreach [facility] [address] [place] [address] Bea Becker AUTOMATION SALES MANAGER 11/03/2024 Patient Outreach [address] [address] Bea Becker AUTOMATION SALES MANAGER Care Coordination ([facility]/HOWARD White, TC #3 initial outreach attempt_lvm) 10/28/2024 Patient Outreach [address] [address] Bea Becker AUTOMATION SALES MANAGER Care Coordination ([facility]/HOWARD White, TC #2 initial outreach attempt_lvm) 10/25/[address] [address] Bea Becker AUTOMATION SALES MANAGER Chart Prep 10/25/2024 Patient Outreach [address] [address] Bea Becker AUTOMATION SALES MANAGER Care Coordination ([facility]/[place] Branch Initial outreach attempt_lvm ) 10/25/2024 Patient Outreach [address] [address] Bea Becker AUTOMATION SALES MANAGER 10/25/2024 Patient Outreach [facility] [address] [place] [address] Bea Becker AUTOMATION SALES MANAGER Care Coordination (C3 chart review) 10/25/2024 Patient Outreach [address] [address] Bea Becker NP from Last 3 Months Immunizations Immunization Administration Dates Next Due Hep B, adult [...] housing situation today? I have krzysztof anderson 01/24/[address] you li [...] 60 07/15/2024 1:35 PM EDT Temperature 36.4 C (97.6 F) 07/15/2024 1:35 PM EDT Respiratory Rate 15 07/15/2024 1:35 PM EDT [...] 02/03/2025 11:30 [address] EDT [address] [facility] [address] [place] [address] Bea Becker NP [address] [place] [address] Health Maintenance Due Date Last Done Comments CT Colonography 1976 Colonoscopy 1976 Colorectal Cancer Screening 1976 FIT DNA/Cologuard 1976 FIT 1976 FOBT 1976 Sigmoidoscopy 1976 Disability Screening 1976 Family Planning (PISQ) 10/12/1991 Pneumococcal Vaccine: Pediatrics (0 to 5 Years) and At-Risk Patients (6 to 49) Years (1 of 2 - PCV) 10/12/1995 Mammogram 11/28/2019 11/27/2017 COVID-19 Vaccine (1 - season) 2025 Influenza Vaccine (#1) 2025 , 02/22/2020, 01/15/2018, Additional history exists Depression Monitoring 06/30/2025 12/28/2024, 025 Alcohol/Substance Use Screening 07/15/2025 07/15/2024 Tobacco Screening 07/17/2025 07/17/2024 Pap Smear 09/09/2025 09/09/2022, 05/0 01/2023, 03/11/2021 SDOH Screening 01/24/2026 01/24/2025 Lipid Panel 05/13/2026 05/13/2021 Zoster Vaccines (1 [...] Procedure Name Priority Date/Time Associated Diagnosis Comments HEPATITIS C ANTIBODY Routine 09/09/2022 11:14 AM EDT HIV ANTIBODY/ANTIGEN ([facility]) Routine 09/09/2022 11:14 AM EDT HPV MRNA E6/E7 REFLEX TO HPV 16, 18/45 Routine 09/09/2022 10:55 AM EDT HM PAP/HPV Routine 09/09/2022 LIPID PANEL, STANDARD Routine 05/13/2021 1:42 PM EST BI MAMMOGRAM SCREENING BILATERAL Routine 11/27/2017 5:21 PM EDT from Last 3 Months or Most Recently Relevant to Health Maintenance Results * Hepatitis C Ab (09/09/2022 11:14 AM EDT) Hepatitis C Antibody Nonreactive Nonreactive [facility] Comment:Antibodies to HCV no t detected; does not exclude early acuteHCV infection. 09/09/2022 11:1 4 AM EDT 09/09/2022 11:14 AM EDT [facility] External Provider LAB BLO OD ORDERABLES Final Result [facility] [address] [place] [phone] * HIV Ab/Ag ([facility] DP) (09/09/2022 11:14 AM EDT) HIV AB/AG Nonreactive Nonreactive [facility] Comment:HIV-1 p24 Ag and/or HIV-1/HIV-2 Ab not detected.A test result that is nonreactive does not exclude thepossibility of exposure to or infection with HIV-1 and/orHIV-2. Nonreactive results in this assay for individualswith prior exposure to HIV-1 and/or HIV-2 may be due toantigen and antibody levels that are below the limit ofdetection of this assay.The [employer]i Feedmobile Driver HIV Ag/Ab Combo assay result andsupplemental assay results should be interpreted inconjunction with the patient's clinical presentation,history and other laboratory results. If the results areinconsistent with clinical evidence, additional testing issuggested to confirm the result. 09/09/2022 11:1 4 AM EDT 09/09/2022 11:14 AM EDT [facility] External Provider LAB BLO OD ORDERABLES Final Result [facility] [address] [place] [phone] * HPV mRNA E6/E7 w/Reflex to HPV Genotypes 16, 18/45 (09/09/2022 10:55 AM EDT) HPV nRNA E6/E7 Not Detected Not Detected [facility] Comment:Methodology: Transcr iption-Mediated AmplificationThis assay detects E6/E7 viral messenger RNA (mRNA) from 14high-risk HPV types (16,18,31,33,35,39,45,51,52,56,58,59,66,68).Cervical sources are required for HPV testing.If a vaginal source from a patient who has had atotal hysterectomy with removal of cervix wassubmitted, please contact the testing laboratoryfor alternative testing options.For additional information, please refer tohttp://education.appening/faq/OLH543m8(This link if provided for information/educational purposes only.)THIS TEST WAS PERFORMED AT:[employer] [place] [phone] KENDALL MD HPV mRNA E6/E7 [facility] HPV 16 RNA [facility] HPV 18/45 RNA [facility] 09/09/2022 10:5 5 AM EDT 09/09/2022 12:15 PM EDT [facility] External Provider LAB CYT OLOGY ORDERABLES Final Result Performing Organization Address City/[facility]/ZIP Co de Phone Number [facility] [address] [place] [address] [phone] * Hm Pap Smear (09/09/2022) Pap smear NILM hpv negative Historical Provider MD HEALTH MAINTENANCE Final Result * (ABNORMAL) LIPID PANEL, STANDARD (05/13/2021 1:42 PM EST) Chol/HDLC Ratio 5.0(H) <5.0 (calc) [facility] Cholesterol, Total 207(H) <200 mg/dL [facility] HDL Cholesterol 41(L) > OR = 50 mg/dL [facility] LDL Cholesterol 141(H) mg/dL (calc) [facility] Comment: Reference range: <100 Desirable range <100 mg/dL for primary prevention; <70 mg/dL for patients with CHD or diabetic patients with > or = 2 CHD risk factors. LDL-C is now calculated using the Rajendra-Tata calculation, which is a validated novel method providing better accuracy than the Friedewald equation in the estimation of LDL-C. Rajendra SS et al. GLO. 2013;310(19): 8622-8802 (http://education.[employer]/faq/LPW963) Non-HDL Cholesterol 166(H) <130 mg/dL (calc) [facility] Comment: For patients with diabetes plus 1 major ASCVD risk factor, treating to a non-HDL-C goal of <100 mg/dL (LDL-C of <70 mg/dL) is considered a therapeutic option. Triglycerides 126 <150 mg/dL [facility] 05/13/2021 1:42 PM EST Aundrea Vazquez GREEN MARKETING ANALYST LAB BLOOD ORDERABLES Final Res ult [facility] [address] * DIGITAL BILATERAL SCREEN 1 (11/27/2017 5:21 PM EDT) Anatomical Region Laterality Modality Breast Bilateral Mammography 11/27/2017 5:21 PM EDT Narrative 11/27/2017 5:23 PM EDT Refer to the Notes tab for result details [facility] Procedure: DIGITAL BILATERAL SCREEN 1 Procedure Note Provider, MD Hiram - 07/26/2022 Refer to the Notes tab for result details [facility] Procedure: DIGITAL BILATERAL SCREEN 1 Jorge Archer GREEN MARKETING ANALYST IMG BI PROCEDURES Final Result from Last 3 Months or Most Recently Relevant to Health Maintenance [email or web address] Care Teams In Flight Technician Relationship Specialty Start Date End Date Bea Becker NP [address] [place] [address] PCP - General Family Medicine 02/10/23 Page White 10/25/24 Chapo Monique, ERASMO [address] [place] [address] Registered Nurse Family Medicine 12/21/24
--- OUTSIDE RECORDS SUMMARY | 2025-01-25 17:50 | XMS_ITS | Encounter Summary ---
Author Organization [employer] Address [address] [place] [address] [place] [address] Care Team Providers Care Ore Fielder Name Role Phone Shyla Diaz Primary Care Provider Priscilla Bea Coles NP Primary Care Provider [phone] Amy Reynolds RN Unavailable [phone] Page White Unavailable Chapo Monique RN Unavailable [phone] Encounter Details Date Type Department Care Team (Late st Contact Info) Description 02/05/2023 Abstract [facility] [address] [place] [address] Ying Wren Social History Tobacco Use Types [...] Description 02/03/2025 11:30 AM EDT Office Visit [facility] [address] [place], [place] [phone] Bea Becker NP [address] [place] [address] documented as of this encounter Visit Diagnoses Not on filedocumented in this encounter Care Teams Ore Fielder Relationship Specialty Start Date End Date Shyla Diaz FNP PCP - General Family Medicine 12/29/21 02/09/23 Bea Becker NP [address] [place] [address] PCP - General Family Medicine 02/10/23 Amy Reynolds, ERASMO [address] [place] [address] Registered Nurse Family Medicine 10/25/24 12/21/24 Page White 10/25/24 Chapo Monique, RN [address] [place] [address] Registered Nurse Family Medicine 12/21/24 documented as of this encounter
--- OUTSIDE RECORDS SUMMARY | 2025-01-25 17:50 | XMS_ITS | Encounter Summary ---
Author Organization [employer] Address [address] [place] [address] 7t [place] [address] Care Team Providers Care Furs Salesperson Name Role Phone Shyla Diaz MEDART OPERATOR Primary Care Provider Priscilla Bea Coles NP Primary Care Provider [phone] Amy Reynolds RN Unavailable [phone] Page White Unavailable Chapo Monique RN Unavailable [phone] Reason for Visit * Reason Comments Med Change Request Encounter Details Date Type Department Care Team (Late st Contact Info) Description 04/30/2022 Refill [facility] [address] [place], [place] [phone] Ronal Stout MD [address] [place] [address] Tobacco dependence Social History Tobacco Use Types [...] For . Pelvic US was ordered at [facility] visit. Thanks. Eagle * Telephone [...] For . Pelvic US was ordered at [facility] visit. Thanks. Eagle documented in this encounter Plan of Treatment Upcoming Encounters Date Type Department Care Team (Late st Contact Info) Description 02/03/2025 11:30 AM EDT Office Visit [facility] [address] [place] [address] Bea Becker NP [address] [place] [address] documented as of this encounter Visit Diagnoses Diagnosis Tobacco dependence Tobacco use disorder documented in this encounter Care Teams Furs Salesperson Relationship Specialty Start Date End Date Shyla Diaz FNP PCP - General Family Medicine 12/29/21 02/09/23 Bea Becker NP [address] [place] [address] PCP - General Family Medicine 02/10/23 Amy Reynolds, RN [address] [place] [address] Registered Nurse Family Medicine 10/25/24 12/21/24 Page White 10/25/24 Chapo Monique, ERASMO [address] [place] [address] Registered Nurse Family Medicine 12/21/24 documented as of this encounter
--- OUTSIDE RECORDS SUMMARY | 2025-01-25 17:50 | XMS_ITS | Encounter Summary ---
Author Organization [employer] Address [address] [place] [address] 7 [place] [address] Care Team Providers Care Pediatrician/Medical Doctor Name Role Phone Bea Becker NP Primary Care Provider [phone] Amy Reynolds RN Unavailable [phone] Page White Unavailable Chapo Monique RN Unavailable [phone] Reason for Visit * Reason Onset Date Comments Appointment Request 06/30/2023 Encounter Details Date Type Department Care Team (Late st Contact Info) Description 06/30/2023 Telephone [facility] [address] [place], [place] [phone] Bea Becker NP [address] [place], [place] [phone] Appointment Request Social History Tobacco Use Types [...] No answer. LVM to call back on [phone]. * Telephone Encounter - Hernandez Brasher - 06/30/2023 11:18 AM EST Tc from patient calling to reschedule missed appt for 05/08 documented in this encounter Plan of Treatment Upcoming Encounters Date Type Department Care Team ([facility] st Contact Info) Description 02/03/2025 11:30 AM EDT Office Visit [facility] [address] [place] [address] Bea Becker NP [address] [place] [address] documented as of this encounter Visit Diagnoses Not on filedocumented in this encounter Care Teams Pediatrician/Medical Doctor Relationship Specialty Start Date End Date Bea Becker NP [address] [place] [address] PCP - General Family Medicine 02/10/23 Amy Reynolds RN [address] [place] [address] Registered Nurse Family Medicine 10/25/24 12/21/24 Page White 10/25/24 Chapo Monique, ERASMO [address] [place] [address] Registered Nurse Family Medicine 12/21/24 documented as of this encounter
--- OUTSIDE RECORDS SUMMARY | 2025-01-25 17:50 | XMS_ITS ---
Author Organization [employer] Address [address] [place] [address] 7t [place] [address] Care Team Providers Care Land Examiner Name Role Phone Bea Becker NP Primary Care Provider [phone] Page White Unavailable Chapo Monique RN Unavailable [phone] [facility] Complex Status:Enrolled (Active) Start date:10/25/2024 Enrollment date:01/24/2025 Enrollment reason:ADT Feed Overview ED- Pt went to [facility] ED on 10/24/24. Case Team Name Relationship Phone Page White(Responsible Staff) [phone] Continued Care and Services Coordination
== END 2025-01-25 15:49 | disposition home or self-care (01) ==
LOC: HO.HWS 15:26
PROVIDERS: PCP Registered Nurse; Visit Provider Obstetrics & Gynecology
DX: D25.9 Leiomyoma of uterus, unspecified (principal); N93.9 Abnormal uterine and vaginal bleeding, unspecified
CPT/HCPCS: 99213

== ENCOUNTER → 2025-03-22 10:00 | Outpatient (BNV) | payer MEDICAID, SELFPAY | PROVIDERS: Visit Provider Radiology Body Imaging | DX: Z12.31 Encounter for screening mammogram for malignant neoplasm of breast (principal) | CPT/HCPCS: 77063; 77067 ==

== ENCOUNTER 2025-03-22 10:14 | Outpatient (REF) | payer MEDICAID, SELFPAY ==
--- OUTSIDE RECORDS SUMMARY | 2025-03-22 19:35 | XMS_ITS ---
Author Organization [employer] Address [address] [place] [address] 7t [place] [address] Care Team Providers Care Lighting Director Name Role Phone Bea Becker NP Primary Care Provider [phone] Page White Unavailable Chapo Monique RN Unavailable [phone] CM Complex Status:Enrolled (Active) Start date:10/25/2024 Enrollment date:12/28/2024 Enrollment reason:ADT Feed Overview ED- Pt went to [facility] ED on 10/24/24. Case Team Name Relationship Phone Chapo Monique RN(Responsible Staff) Registered N [facility] [phone] Continued Care and Services Coordination
--- OUTSIDE RECORDS SUMMARY | 2025-03-22 19:35 | XMS_ITS | Encounter Summary ---
Author Organization [employer] Address [address] [place] [address] 7t [place] [address] Care Team Providers Care Tie Binder Name Role Phone Shyla Diaz VOLLEYBALL PLAYER Primary Care Provider Priscilla Bea Coles RAZOR SHARPENER Primary Care Provider [phone] Amy Reynolds RN Unavailable Unavailable Page White Unavailable Chapo Monique RN Unavailable [phone] Reason for Visit * Reason Comments Med Change Request Encounter Details Date Type Department Care Team (Late st Contact Info) Description 04/30/2022 Refill [facility] [address] [place], [place] [phone] Ronal Stout MD [address] [place] [address] Tobacco dependence Social History Tobacco Use Types [...] For . Pelvic US was ordered at [facility] visit. Thanks. Eagle * Telephone [...] For . Pelvic US was ordered at [facility] visit. Thanks. Eagle documented in this encounter Plan of Treatment Upcoming Encounters Date Type Department Care Team (Late st Contact Info) Description 04/05/2025 11:30 AM EST Office Visit [facility] [address] [place] [address] Bea Becker NP [address] [place] [address] documented as of this encounter Visit Diagnoses Diagnosis Tobacco dependence Tobacco use disorder documented in this encounter Care Teams Tie Binder Relationship Specialty Start Date End Date Shyla Diaz FNP PCP - General Family Medicine 12/29/21 02/09/23 Bea Becker NP [address] [place] [address] PCP - General Family Medicine 02/10/23 Amy Reynolds, RN [address] [place] [address] Registered Nurse Family Medicine 10/25/24 12/21/24 Page White 10/25/24 Chapo Monique, ERASMO [address] [place] [address] Registered Nurse Family Medicine 12/21/24 documented as of this encounter
--- OUTSIDE RECORDS SUMMARY | 2025-03-22 19:35 | XMS_ITS | Encounter Summary ---
Author Organization [employer] Address [address] [place] [address] 7 [place] [address] Care Team Providers Care Sieve Grader Tender Name Role Phone Bea Becker NP Primary Care Provider [phone] Amy Reynolds RN Unavailable Unavailable Page White Unavailable Chapo Monique RN Unavailable [phone] Reason for Visit * Reason Onset Date Comments Appointment Request 06/30/2023 Encounter Details Date Type Department Care Team (Late st Contact Info) Description 06/30/2023 Telephone [facility] [address] [place], [place] [phone] Bea Becker NP [address] [place] [address] Appointment Request Social History Tobacco Use Types [...] No answer. LVM to call back on [phone]. * Telephone Encounter - Hernandez Brasher - 06/30/2023 11:18 AM EST Tc from patient calling to reschedule missed appt for 05/08 documented in this encounter Plan of Treatment Upcoming Encounters Date Type Department Care Team (Late st Contact Info) Description 04/05/2025 11:30 AM EST Office Visit [facility] [address] [place] [address] Bea Becker NP [address] [place], [place] documented as of this encounter Visit Diagnoses Not on filedocumented in this encounter Care Teams Sieve Grader Tender Relationship Specialty Start Date End Date Bea Becker NP [address] [place] [address] PCP - General Family Medicine 02/10/23 Amy Reynolds RN [address] [place], [place] Registered Nurse Family Medicine 10/25/24 12/21/24 Page White 10/25/24 Chapo Monique, RN [address] [place] [address] Registered Nurse Family Medicine 12/21/24 documented as of this encounter
--- OUTSIDE RECORDS SUMMARY | 2025-03-22 19:35 | XMS_ITS | Encounter Summary ---
Author Organization [employer] Address [address] [place] [address] [place] [address] Care Team Providers Care Follow Up Specialist Name Role Phone Shyla DiazP Primary Care Provider Bea Adams NP Primary Care Provider [phone] Amy Reynolds RN Unavailable Unavailable Page White Unavailable Chapo Monique RN Unavailable [phone] Encounter Details Date Type Department Care Team (Late st Contact Info) Description 02/05/2023 Abstract [facility] [address] [place] [address] Ying Wren Social History Tobacco Use Types [...] Description 04/05/2025 11:30 AM EST Office Visit [facility] [address] [place], [place] [phone] Bea Becker NP [address] [place] [address] documented as of this encounter Visit Diagnoses Not on filedocumented in this encounter Care Teams Follow Up Specialist Relationship Specialty Start Date End Date Shyla Diaz FNP PCP - General Family Medicine 12/29/21 02/09/23 Bea Becker NP [address] [place] [address] PCP - General Family Medicine 02/10/23 Amy Reynolds RN [address] [place] [address] Registered Nurse Family Medicine 10/25/24 12/21/24 Page White 10/25/24 Chapo Monique, ERASMO [address] [place] [address] Registered Nurse Family Medicine 12/21/24 documented as of this encounter
--- OUTSIDE RECORDS SUMMARY | 2025-03-22 19:35 | XMS_ITS | Encounter Summary ---
Author Organization [employer] Address [address] [facility] 7[address] [place] [address] Care Team Providers Care Shipping Technician Name Role Phone Bea Becker NP Primary Care Provider [phone] Page White Unavailable Chapo Monique RN Unavailable [phone] Encounter Details Date Type Department Care Team ([facility] st Contact Info) Description 03/20/2025 Telephone [facility] [address] [place], [place] [phone] Bea Becker NP [address] [place] [address] Social History Tobacco Use Types Packs/Day Years Used Date Smoking Tobacco: Every Day Cigarettes Smokeless Tobacco: Never Alcohol Use Standard Drinks/Week Comments Not Currently 0 (1 standard drink = 0.6 oz pur e alcohol) Depression Answer Date Recorded Patient Health Questionnaire-9 [...] encounter Miscellaneous Notes * Telephone Encounter - Nicole Samayoa RN - 03/20/2025 1:06 PM EST T/C received from front end technician staff that pt walked in in response to call from healthcare management. Reports that pt is concerned because her period is late. Reports last menstrual period was 02/14/25. Ptdenies symptoms and reports that she feels well. desk reporter staff agrees to reach out to healthcare management re: f/u. documented in this encounter Plan of Treatment Upcoming Encounters Date Type Department Care Team ([facility] Contact Info) Description 04/05/2025 11:30 AM EST Office Visit [facility] [address] [place] [address] Bea Becker NP [address] [place] [address] documented as of this encounter Visit Diagnoses Not on filedocumented in this encounter Additional Health Concerns Assessment Noted Time PHQ-9 Depression Total Score: 13 025 3:07 PM EDT documented as of this encounter Care Teams Shipping Technician Relationship Specialty Start Date End Date Bea Becker NP [address] [place] [address] PCP - General Family Medicine 02/10/23 Page White 10/25/24 Chapo Monique, RN [address] [place] [address] Registered Nurse Family Medicine 12/21/24 documented as of this encounter
--- OUTSIDE RECORDS SUMMARY | 2025-03-22 19:35 | XMS_ITS | Encounter Summary ---
Author Organization [facility] [facility] [employer] Address [address] [place] [address] [place] [address] Care Team Providers Care Web Manager Name Role Phone Shyla DiazP Primary Care Provider Bea Adams NP Primary Care Provider [phone] Amy Reynolds RN Unavailable Unavailable Page White Unavailable Chapo Monique RN Unavailable [phone] Encounter Details Date Type Department Care Team (Late st Contact Info) Description 02/05/2023 Abstract [facility] [address] [place] [address] Ying Wren Social History Tobacco Use Types [...] Description 04/05/2025 11:30 AM EST Office Visit [facility] [address] [place], [place] [phone] Bea Becker NP [address] [place] [address] documented as of this encounter Visit Diagnoses Not on filedocumented in this encounter Care Teams Web Manager Relationship Specialty Start Date End Date Shyla Diaz FNP PCP - General Family Medicine 12/29/21 02/09/23 Bea Becker NP [address] [place] [address] PCP - General Family Medicine 02/10/23 Amy Reynolds RN [address] [place] [address] Registered Nurse Family Medicine 10/25/24 12/21/24 Page White 10/25/24 Chapo Monique, ERASMO [address] [place] [address] Registered Nurse Family Medicine 12/21/24 documented as of this encounter
--- OUTSIDE RECORDS SUMMARY | 2025-03-22 19:35 | XMS_ITS | Clinical Summary ---
Author Organization [facility] Address [address] [place] [address] Phone Care Team Providers Care Supervisor Underwriting Clerks Name Role Phone Jorge Archer NP Primary Care Provider [phone] Allergies Active Allergy Reactions Criticality Noted Date [...] 05/26/2022 Overview (08/26/2024): Care managed by Dr. Lou Hills appt 04/23/22 Stable, Followup 6 months [...] underlying fibroid disease Asthma 11/03/2012 Bipolar disorder ([facility] V24, [facility] V28) 07/2012 Migraine 11/03/2012 Anemia 12/01/2011 Encounters Date Type Department Care Team Description 03/02/2025 6:16 AM EDT - 03/02/2025 6:41 AM EDT Emergency [facility] Emergency [address] [place] [id number] Discharge Disposition: Left Against Medical Advice from Last 3 Months Immunizations Immunization Administration Dates Next Due Hepatitis B ([id number] , Recombivax HB-Adult) 19yo and older 11/05/2010,06/26/2010,02/22/2010 [...] Surgical History Surgery Date Site/Laterality Comments SECTION 2015 PROCEDURE: HISTORICAL DELIVERY OTHER SURGICAL HISTORY 2011, 2011, 2003 PROCEDURE: PA DILATION & CURETTAGE DX&/THER NONOBSTETRIC; COMMENT: x3 [...] Anes PTL Manjula A1 A5 Name Clin 2003 7 Term 38w 0d 3317 g (117 oz) M Vag-S pont None Livin g Delivery Location:[facility] 8 Term 38w 0d 2778 g (98 oz) M Vag-S pont None Livin g Delivery Location:[facility] 2011 4 Term 40w 0d 2325 g (82 oz) F Vag-S pont Epidur al Decea sed Delivery Location:[facility] Comments:IUFD 5 Term 38w 0d 2722 g (96 oz) M Vag-S pont Livin g Delivery Location:[facility] 2015 Term 37w 3d 3317 g (117 oz) M CS-LT ranv Spinal Livin g Dr Hitchcock Complications:Transverse lie of fetus,Footling breech presentation Delivery Location:[facility] Comments:transverse fo otling breech 2016 Term 38w 6d 3033 g (107 oz) M CS-Un spec Spinal Livin g Dr. Xavier ood Delivery Location:[facility] Last Filed Vital Signs Vital Sign Reading Time Taken Comments Blood Pressure 200/108 03/02/2025 5:55 AM EDT Pulse 58 03/02/2025 5:55 AM EDT Temperature 36.7 C (98 F) 03/02/2025 5:55 AM EDT Respiratory Rate 16 03/02/2025 5:55 AM EDT Oxygen Saturation 99% 03/02/2025 5:55 AM EDT Inhaled Oxygen Concentration - - Weight 73.5 kg (162 lb) 03/02/2025 5:55 AM EDT Height 162.6 cm (5' 4 ) 03/02/2025 5:55 AM EDT Body Mass Index 27.81 03/02/2025 5:55 AM EDT Plan of Treatment Health Maintenance Due Date Last Done Comments Colorectal Cancer Screening: Colonoscopy 1976 Pneumococcal Vaccine: Pediatrics (0 to 5 Years) and At-Risk Patients (6 to 49 Years) (1 of 2 - PCV) 10/12/1995 Breast Cancer Screening 11/28/2019 11/27/2017 Social Influencers of Health Screening 04/06/2022 Depression [...] Procedure Name Priority Date/Time Associated Diagnosis Comments ECG ANNOTATED 03/03/2025 BASIC METABOLIC PANEL STAT 06/28/2024 10:11 PM EST HPV Routine 06/01/2019 HEPATITIS C SCREENING Routine 06/01/2019 HIV SCREENING Routine 06/01/2019 from Last 3 Months or Most Recently Relevant to Health Maintenance Results * ECG-Annotated (03/03/2025) us Provider Onbase MD ECG ORDERABLES Final Result * Basic metabolic panel (06/28/2024 10:11 PM EST) Sodium 140 133 - 145 mmol/L LAB CHEMISTRY METHOD 06/28/2024 10:55 PM [facility] Potassium 3.8 3.5 - 5.5 mmol/L LAB CHEMISTRY METHOD 06/28/2024 10:55 PM [facility] Chloride 110 96 - 110 mmol/L LAB CHEMISTRY METHOD 06/28/2024 10:55 PM [facility] CO2 26 21 - 32 mmol/L LAB CHEMISTRY METHOD 06/28/2024 10:55 PM [facility] Anion Gap 4 3 - 11 LAB CHEMISTRY METHOD 06/28/2024 10:55 PM [facility] Glucose 94 70 - 100 mg/dL LAB CHEMISTRY METHOD 06/28/2024 10:55 PM [facility] BUN 9 5 - 25 mg/dL LAB CHEMISTRY METHOD 06/28/2024 10:55 PM [facility] Creatinine 0.63 0.50 - 1.10 mg/dL LAB CHEMISTRY METHOD 06/28/2024 10:55 PM [facility] eGFR 110 >=60 mL/min/1. 73m2 LAB CHEMISTRY METHOD 06/28/2024 10:55 PM [facility] Comment:Calculation based on the Chronic Kidney Disease Epidemiology Collaboration (CKD-EPI) equation refit without adjustment for race. BUN/Creatinine Ratio 14.3 LAB CHEMISTRY METHOD 06/28/2024 10:55 PM [facility] Calcium 8.9 8.5 - 10.5 mg/dL LAB CHEMISTRY METHOD 06/28/2024 10:55 PM [facility] Blood Venous blood specimen / Unknown Venipuncture / Unknown 06/28/2024 10:11 PM EST 06/28/2024 10:23 PM EST us Jessica [place] LAB BLOOD ORDERABLES Final Resul t [facility] [address] [place] [address], * Cervical Cancer Screening: HPV (06/01/2019) Cervical Cancer Screening: HPV Negativie abstracted Historical Provider HEALTH MAINTENANCE Final Result * HIV Screening (06/01/2019) HIV Screening Abstracted Historical Provider HEALTH MAINTENANCE Final Result * Hepatitis C Screening (06/01/2019) Hepatitis C Screening Abstracted Historical Provider HEALTH MAINTENANCE Final Result from Last 3 Months or Most Recently Relevant to Health Maintenance Insurance MEDICAID - [place] Care Teams Supervisor Underwriting Clerks Relationship Specialty Start Date End Date Jorge Archer NP [address] [place] [address] PCP - General Nurse Practitioner 05/18/24
--- OUTSIDE RECORDS SUMMARY | 2025-03-22 19:35 | XMS_ITS | Encounter Summary ---
Author Organization [employer] Address [address] [place] [address] [address] [place] [address] Care Team Providers Care Office Machine Servicer Apprentice Name Role Phone Shyla Diaz [employer] Primary Care Provider Priscilla Bea Coles NP Primary Care Provider [phone] Amy Reynolds RN Unavailable Unavailable Page White Unavailable Chapo Monique RN Unavailable [phone] Encounter Details Date Type Department Care Team (Late st Contact Info) Description 02/05/2023 Abstract [facility] [address] [place] [address] Ying Wren Social History Tobacco Use Types [...] Description 04/05/2025 11:30 AM EST Office Visit [facility] [address] [place], [place] [phone] Bea Becker NP [address] [place] [address] documented as of this encounter Procedures Procedure Name Priority Date/Time Associated Diagnosis Comments HM PAP/HPV Routine 03/11/2021 documented in this encounter Results * (ABNORMAL) Pap Smear (03/11/2021) Pap Epithelial cell abnormality(A ) Negative for intraephithelial lesion or malignancy, Other Comment:ASCUS HPV Undetected us Historical Provider HEALTH MAINTENANCE Final Result documented in this encounter Visit Diagnoses Not on filedocumented in this encounter Care Teams Office Machine Servicer Apprentice Relationship Specialty Start Date End Date Shyla Diaz FNP PCP - General Family Medicine 12/29/21 02/09/23 Bea Becker NP [address] [place] [address] PCP - General Family Medicine 02/10/23 Amy Reynolds, RN [address] [place] [address] Registered Nurse Family Medicine 10/25/24 12/21/24 Page White 10/25/24 Chapo Monique, RN [address] [place] [address] Registered Nurse Family Medicine 12/21/24 documented as of this encounter
--- OUTSIDE RECORDS SUMMARY | 2025-03-22 19:35 | XMS_ITS | Clinical Summary ---
Author Organization [employer] Address [address] [place] [address] [address] [place] [address] Care Team Providers Care Ranch Rider Name Role Phone Bea Becker NP Primary Care Provider [phone] Page White Unavailable Chapo Monique RN Unavailable [phone] Allergies Active Allergy Reactions Criticality Noted Date Comments Latex 06/06/2022 Shellfish Allergy Hives,Anaphylaxis High 06/06/2022 Medications * This document contains information received from the source organization and may not represent a complete record from that organization. nicotine polacrilex (Commit) 2 MG lozengeIndication s:Tobacco dependence Dissolve 1 lozenge (2 mg) in the mouth if needed for smoking cessation. 100 lozenge 2 Active aspirin-acetamino phen-caffeine (Excedrin Migraine) 250-250-65 MG tabletIndications :Acute non intractable tension-type headache Use one tablet every 8 hours as needed for headache, do not use more than 5 days in a row 30 tablet 3 Active Spacer/Aero-Holdi ng Chambers deviceIndications :Mild intermittent asthma without complication 1 each every 4 (four) hours if needed (wheezing, cough). 1 each 3 Active albuterol 108 (90 Base) MCG/ACT inhalerIndication s:Asthma, unspecified asthma severity, unspecified whether complicated, unspecified whether persistent Inhale 2 puffs every 6 (six) hours if needed for wheezing or shortness of breath. 18 g 3 5 07/16/19 26 Active loratadine (Claritin) 10 MG tabletIndications :Seasonal allergies TAKE 1 TABLET (10 MG) BY MOUTH ONCE PER DAY. 90 tablet 5 Active naproxen (Naprosyn) 500 MG tablet Take 1 tablet by mouth if needed in the morning and at bedtime for moderate pain. 5 Active norethindrone (Aygestin) 5 MG tablet Take 1 tablet by mouth Once per day. 5 Active lisinopril 10 MG tabletIndications :Primary hypertension TAKE 1 TABLET (10 MG) BY MOUTH ONCE PER DAY. 90 tablet 1 5 Active SUMAtriptan (Imitrex) 25 MG tabletIndications :Chronic migraine without aura without status migrainosus, not intractable Take 1 tablet (25 mg) by mouth 1 (one) time if needed for migraine for up to 9 doses. May repeat dose once in 2 hours if no relief. Do not exceed 2 doses in 24 hours. 9 tablet 5 Active venlafaxine XR (Effexor XR) 37.5 MG 24 hr capsuleIndication s:Chronic migraine without aura without status migrainosus, not intractable Take 1 capsule (37.5 mg) by mouth Once per day. Do not crush or chew. 30 capsule 5 Active Active Problems Problem Noted Date Diagnosed Date Moderate anxiety 07/29/2024 Assessment & Plan (03/05/2025 6:03 AM EST): -trial venlafaxine -declines BH consult Burnout of caregiver 07/29/2024 Uterine leiomyoma 07/17/2024 [...] next visit Bilateral carpal tunnel syndrome 08/14/2022 Assessment & Plan (03/05/2025 6:02 AM EST): -refused referral to ortho for further intervention -recommend acetaminophen for pain and bracing Trigger ring finger of right hand 08/14/2022 Class 1 obesity 05/26/2022 Hyperprolactinemia 05/26/2022 Primary hypertension 05/26/2022 Overview (05/26/2022): Care managed by Dr. Blake Last appt 04/23/22 Stable, Followup 6 months Assessment & Plan (03/05/2025 6:02 AM EST): -uncontrolled; patient not taking prescribed lisinopril -discussed negative implications associated with uncontrolled hypertension -recommend daily home BP monitoring for 1 week with Televisit w/ team RN's; if BP remains elevated patient agrees to restart BP medication Orders: Lipid Panel, Standard; Future Albumin, Random Urine W/Creatinine; Future Assessment & Plan (07/17/2024 6:10 AM EDT): [...] in symptoms Bipolar disorder 11/03/2012 Migraine 11/03/2012 Assessment & Plan (03/05/2025 6:02 AM EST): -headache description suggestive of migraine headache, however hypertensive headache is also likely - Pt is agreeable to trial sumatriptan - discussed use of venlafaxine for its dual action of aiding in anxiety symptoms and she agrees. -medication side effects reviewed -recommend maintaining headache diary -ED precautions reviewed Orders: SUMAtriptan (Imitrex) 25 MG tablet; Take 1 tablet (25 mg) by mouth 1 (one) time if needed for migraine for up to 9 doses. May repeat dose once in 2 hours if no relief. Do not exceed 2 doses in 24 hours. venlafaxine XR (Effexor XR) 37.5 MG 24 hr capsule; Take 1 capsule (37.5 mg) by mouth Once per day. Do not crush or chew. Anemia 12/01/2011 Encounters Date Type Department Care Team Description 03/20/2025 Telephone [facility] MEDICINE [address] [place] [id number] Bea Becker NP 03/06/2025 Patient Outreach [address] [address] Bea Becker NP Transition Of Care (Tcm) (HDF unscheduled unable to LVM ) 03/06/2025 Patient Outreach [address] [address] Bea Becker NP 03/03/2025 Patient Outreach [address] [address] Bea Becker NP 02/27/2025 Patient Outreach [address] [address] Bea Becker NP Care Coordination (C3CM/CHW SDOH f/u call_lvm) 02/27/2025 Patient Outreach [facility] [address] [place] [address] Bea Becker NP Care Management (C3CM- F/U call # 2/LVM) 02/22/2025 11:00 AM EDT Telemedicine [address] [address] Nicole Samayoa, ERASMO Primary hypertension 02/22/[address] [address] Merlene Flower, ERASMO Error (VOID this visit) 02/22/2025 Travel 02/17/[address] [address] Bea Becker NP 02/17/[address] [address] Bea Becker NP Error (VOID this visit) 02/10/[address] [address] Bea Becker NP Appointment 02/10/2025 Travel 02/03/2025 11:30 AM EDT Office Visit [address] [address] Bea Becker NP Primary hypertension (Primary Dx); Chronic migraine without aura without status migrainosus, not intractable; Screening for colon cancer; Breast cancer screening by mammogram; Overweight (BMI 25.0-29.9); Moderate anxiety; Bilateral carpal tunnel syndrome 02/03/2025 Travel 02/02/2025 Patient Outreach [address] [address] Bea Becker NP Care Coordination ([facility]HOWARD Rutledge, appointment reminder _mailbox full ) 02/02/[address] [address] Bea Becker NP CHARTPREP 01/24/2025 Patient Outreach [facility] [address] [place] [address] Bea Becker NP Care Management ([facility]- F/U call # 1) 01/24/2025 Patient Outreach [address] [address] Bea Becker NP Care Coordination ([facility]HOWARD White, Sdoh assessment, enrolled) 01/20/[address] [address] Bea Becker NP Primary hypertension 01/09/2025 Patient Outreach [address] [address] Bea Becker NP Care Coordination (C3/OHWARD White, SDOH assessment_lvm ) 01/03/2025 Plan of Care Documentation [address] [address] 12/30/2024 Patient Outreach [address] [address] Bea Becker NP Care Coordination (C3/HOWARD White, SDOH assessment_lvm) 12/28/2024 Patient Outreach [address] [address] Bea Becker NP Care Management (C3- Initial assessment/enrollmen t) 12/27/2024 Patient Outreach [address] [address] Bea Becker NP Care Coordination (C3/HOWARD White, appt reminder ) 12/21/2024 Patient Outreach [address] [place] [address] Bea Becker NP Care Coordination (C3CM/CHW Page White, Initial assessment scheduled ) from Last 3 Months Immunizations Immunization Administration [...] uit: Not Asked; Counseling Given: Not Answered Alcohol Use Standard Drinks/Week Comments Not Currently 0 (1 standard drink = 0.6 oz pur e alcohol) Depression Answer Date Recorded Patient Health Questionnaire-9 Score 13 12/28/2024 Patient Health Questionnaire-9 Score 13 12/28/2024 Last PHQ-9: Questionnaire Data Not on file 0 12/28/2024 Housing Stability Answer Date Recorded What is your housing situation today? I have krzysztofcarly anderson 01/24/[address] you [...] the past 12 months, has t he [employer], gas, oil or water [employer] threatened to shut off services in your [...] Sign Reading Time Taken Comments Blood Pressure 140/80 02/03/2025 12:06 PM EDT Pulse 63 02/03/2025 12:06 PM EDT Temperature 37.1 C (98.8 F) 02/03/2025 12:06 PM EDT Respiratory Rate 20 02/03/2025 12:06 PM EDT Oxygen Saturation 98% 02/03/2025 12:06 PM EDT Inhaled Oxygen Concentration - - Weight 74.9 kg (165 lb 3.2 oz) 02/03/2025 12:06 PM EDT Height 162.6 cm (5' 4 ) 02/03/2025 12:06 PM EDT Body Mass Index 28.36 02/03/2025 12:06 PM EDT Plan of Treatment Upcoming Encounters Date Type Department Care Team (Late st Contact Info) Description 04/05/2025 11:30 AM EST Office Visit [facility] MEDICINE [address] [place] [address] Bea Becker NP [address] [place] [address] Health Maintenance Due Date Last Done Comments CT Colonography 1976 Colonoscopy 1976 Colorectal Cancer Screening 1976 FIT DNA/Cologuard 1976 FIT 1976 FOBT 1976 Sigmoidoscopy 1976 Family Planning (PISQ) 10/12/1991 Pneumococcal Vaccine: Pediatrics (0 to 5 Years) and At-Risk Patients (6 to 49) Years (1 of 2 - PCV) 10/12/1995 Mammogram 11/28/2019 11/27/2017 COVID-19 Vaccine (1 - season) 2025 Influenza Vaccine (#1) 2025 , 02/22/2020, 01/15/2018, Additional history exists Depression Monitoring 06/30/2025 12/28/2024, 025 Alcohol/Substance Use Screening 07/15/2025 07/15/2024 Pap Smear 09/09/2025 09/09/2022, 05/0 01/2023, 03/11/2021 SDOH Screening 01/24/2026 01/24/2025 Disability Screening 02/03/2026 02/03/2025 Tobacco Screening 03/05/2026 03/05/2025 Lipid Panel 05/13/2026 05/13/2021 Zoster Vaccines (1 [...] AM EDT) Hepatitis C Antibody Nonreactive Nonreactive [facility] Comment:Antibodies to HCV no t detected; does not exclude early acuteHCV infection. 09/09/2022 11:1 4 AM EDT 09/09/2022 11:14 AM EDT us [facility] External Provider LAB BLO OD ORDERABLES Final Result [facility] [address] [place] [address] [phone] * HIV Ab/Ag ([place] [facility]) (09/09/2022 11:14 AM EDT) HIV AB/AG Nonreactive Nonreactive [facility] Comment:HIV-1 p24 Ag and/or HIV-1/HIV-2 Ab not detected.A test result that is nonreactive does not exclude thepossibility of exposure to or infection with HIV-1 and/orHIV-2. Nonreactive results in this assay for individualswith prior exposure to HIV-1 and/or HIV-2 may be due toantigen and antibody levels that are below the limit ofdetection of this assay.The [employer] HIV Ag/Ab Combo assay result andsupplemental assay results should be interpreted inconjunction with the patient's clinical presentation,history and other laboratory results. If the results areinconsistent with clinical evidence, additional testing issuggested to confirm the result. 09/09/2022 11:1 4 AM EDT 09/09/2022 11:14 AM EDT [facility] External Provider LAB BLO OD ORDERABLES Final Result [facility] [address] [place] [address] [phone] * HPV mRNA E6/E7 w/Reflex to HPV Genotypes 16, 18/45 (09/09/2022 10:55 AM EDT) HPV nRNA E6/E7 Not Detected Not Detected [facility] Comment:Methodology: Transcr iption-Mediated AmplificationThis assay detects E6/E7 viral messenger RNA (mRNA) from 14high-risk HPV types (16,18,31,33,35,39,45,51,52,56,58,59,66,68).Cervical sources are required for HPV testing.If a vaginal source from a patient who has had atotal hysterectomy with removal of cervix wassubmitted, please contact the testing laboratoryfor alternative testing options.For additional information, please refer tohttp://education.sendwithus/faq/UNB891w0(This link if provided for information/educational purposes only.)THIS TEST WAS PERFORMED AT:[facility] [place] [id number] KENDALL MD HPV mRNA E6/E7 TNP [facility] HPV 16 RNA TNP [facility] HPV 18/45 RNA [facility] 09/09/2022 10:5 5 AM EDT 09/09/2022 12:15 PM EDT [facility] External Provider LAB CYT OLOGY ORDERABLES Final Result [facility] [address] [place] [address] [phone] * Pap Smear (09/09/2022) Pathologist [facility] Pap smear NILM hpv negative Historical Provider [...] factors. LDL-C is now calculated using the Paloma calculation, which is a validated novel method providing better accuracy than the Friedewald equation in the estimation of LDL-C. Rajendra SILVER et al. GLO. 2013;310(19): 3901-0071 (http://education.Hotelicopter/faq/ONJ269) Non-HDL Cholesterol 166(H) <130 mg/dL (calc) [facility] Comment: For patients with diabetes plus 1 major ASCVD risk factor, treating to a non-HDL-C goal of <100 mg/dL (LDL-C of <70 mg/dL) is considered a therapeutic option. Triglycerides 126 <150 mg/dL [facility] 05/13/2021 1:42 PM EST us Aundrea Vazquez BINDERY MACHINE OPERATOR LAB BLOOD ORDERABLES Final Res ult [facility] [address] * DIGITAL BILATERAL SCREEN 1 (11/27/2017 5:21 PM EDT) Anatomical Region Laterality Modality Breast Bilateral Mammography 11/27/2017 5:21 PM EDT Narrative 11/27/2017 5:23 PM EDT Refer to the Notes tab for result details [facility] Procedure: DIGITAL BILATERAL SCREEN 1 Procedure Note Provider, MD Hiram - 07/26/2022 Refer to the Notes tab for result details [facility] Procedure: DIGITAL BILATERAL SCREEN 1 us Jorge Archer BINDERY MACHINE OPERATOR IMG BI PROCEDURES Final Result from Last 3 Months or Most Recently Relevant to Health Maintenance Insurance Care Teams Ranch Rider Relationship Specialty Start Date End Date Bea Becker NP [address] [place] [phone] PCP - General Family Medicine 02/10/23 Page White 10/25/24 Chapo Monique, ERASMO [address] [place] [phone] Registered Nurse Family Medicine 12/21/24
--- OUTSIDE RECORDS SUMMARY | 2025-03-22 19:35 | XMS_ITS ---
Author Organization [employer] Address [address] [place] [address] [address] [place] [address] Care Team Providers Care Alley Tender Name Role Phone Bea Becker NP Primary Care Provider [phone] Page White Unavailable Chapo Monique RN Unavailable [phone] [facility] Complex Status:Enrolled (Active) Start date:10/25/2024 Enrollment date:01/24/2025 Enrollment reason:ADT Feed Overview ED- Pt went to [facility] ED on 10/24/24. Case Team Name Relationship Phone Page White(Responsible Staff) [phone] Continued Care and Services Coordination
== END 2025-03-22 10:15 | disposition home or self-care (01) ==
LOC: HO.MAMMO 10:14
PROVIDERS: Visit Provider Obstetrics & Gynecology
DX: Z12.31 Encounter for screening mammogram for malignant neoplasm of breast (principal)
CPT/HCPCS: 77063; 77067